=== PATIENT | male | born 1930 | race Caucasian/White ===

== ENCOUNTER 2017-05-05 08:45 | Inpatient (IN) | payer OTHER, MEDICARE ==
[~2017-05-05] VITALS: Ht 162.6 cm; Wt 71.8 kg
[2017-05-05] VITALS (12 sets, daily range): BP systolic 100–131; BP diastolic 50–77; PULSE 62–97; RESP 14–20; TEMP 98.4–99; O2SAT 95–100
[~2017-05-05 08:45] MED LIST: ASPI81 PO; COQ-100C5 OR; COUM3TAB PO; GLUC500C4 OR; HYDR-3580 OR; IRON OTC PO; NIAC500T34 PO; SIMV40TA PO; VITA100020 SL
[2017-05-05] MEDS ORDERED: VENTAER INH (08:52)
[2017-05-05] MEDS ORDERED: PRED1 PO (08:52)
[2017-05-05] MEDS ORDERED: SODIUM CHLOR 0.9% 1000 ML INJ 1,000 ML IV SCH (09:17)
[2017-05-05] MEDS ORDERED: DIATRIZOATE MEGLUM/DIATRIZOATE SOD 9 ML CUP ONE (09:23)
[2017-05-05] MEDS ORDERED: HYDROmorphone HCL PF 2 MG/ML VIAL ONE ×2 (09:25→16:04)
[2017-05-05] MEDS ORDERED: ONDANSETRON HCL 4 MG/2 ML VIAL IVP ONE (09:30)
[2017-05-05] MEDS ORDERED: HYDROmorphone HCL PF 1 MG/ML VIAL IVS ONE (09:30)
[2017-05-05] MEDS ORDERED: SODIUM CHLORIDE 0.9% FLUSH 10 ML FLUSH IV FLUSH PRN (09:30)
[2017-05-05 09:48] LABS: HEMATOCRIT 38.9 % (39.0-51.0); HEMOGLOBIN 13.3 GM/DL (13.0-17.0); MEAN CELL VOLUME 92.9 FL (80.0-100.0); MEAN CORPUSCULAR HEMOGLOBIN 31.8 PG (27.0-34.0); MEAN CORPUSCULAR HGB CONC 34.2 % (32.0-36.0); PLATELET COUNT 226 TH/MM3 (150-450); RED BLOOD COUNT 4.19 MIL/MM3 (4.50-5.90); RED CELL DISTRIBUTION WIDTH 12.9 % (11.6-17.2); WHITE BLOOD COUNT 15.9 TH/MM3 (4.0-11.0)
[2017-05-05 10:00] LABS: ALBUMIN 3.1 GM/DL (3.4-5.0); AST (GOT) 14 U/L (15-37); BICARBONATE 28.5 MEQ/L (21.0-32.0); BLOOD UREA NITROGEN 27 MG/DL (7-18); CALCIUM 9.4 MG/DL (8.5-10.1); CREATININE 1.39 MG/DL (0.60-1.30); GLOMERULAR FILTRATION RATE 48 ML/MIN (>89); GLUCOSE,RANDOM 122 MG/DL (74-106)
[2017-05-05 10:02] LABS: ALT (GPT) 30 U/L (12-78)
[2017-05-05 10:04] LABS: ALKALINE PHOSPHATASE 76 U/L (45-117); TOTAL BILIRUBIN ADULT 0.4 MG/DL (0.2-1.0); TOTAL PROTEIN 6.7 GM/DL (6.4-8.2)
--- NOTE | 2017-05-05 10:17 | PD ---
HPI Chief Complaint: Abdominal Pain Time Seen by Provider: 09:17 Travel History International Travel<30 days: No Contact w/Intl Traveler<30days: No Traveled to known affect area: No History of Present Illness HPI This is an 86-year-old male who presents today with complaints of abdominal pain with associated nausea vomiting. Patient states that it started this morning. He denies any fevers, chills. The patient denies any previous history of pain like this. He does report that he has been told he has had diverticulosis in the past. There is no reported blood in his stool or emesis. There is no decreased urination. Patient states he had a bowel movement this morning that was normal in consistency. There are no other complaints at the time of my examination. PFSH Past Medical History Arthritis: Yes Asthma: No Heart Rhythm Problems: No Cancer: No Cardiovascular Problems: Yes High Cholesterol: Yes Chest Pain: No Congestive Heart Failure: No COPD: No Cerebrovascular Accident: No Endocrine: No GERD: No Genitourinary: No Hiatal Hernia: No Hypertension: Yes Immune Disorder: No Musculoskeletal: Yes Neurologic: No Psychiatric: No Reproductive: No Respiratory: No Migraines: No Seizures: No Sleep Apnea: No Ulcer: No Tetanus Vaccination: < 5 Years Influenza Vaccination: Yes Past Surgical History Joint Replacement: Yes (LEFT TOTAL HIP) Pacemaker: No Social History Alcohol Use: No Tobacco Use: No Substance Use: No Allergies-Medications (Allergen,Severity, Reaction): Coded Allergies: oyster extract (Unverified Allergy, Severe, NAUSEA, 05/05/17) Reported Meds & Prescriptions Reported Meds & Active Scripts Active Reported Ventolin Hfa 18 GM Inh (Albuterol Sulfate) 90 Mcg/Act Aer 1 Puff INH Q4H PRN Prednisone 1 Mg Tab 1 Mg PO DAILY Review of Systems Except as stated in HPI: all other systems reviewed are Neg General / Constitutional: No: Fever, Chills HENT: No: Headaches, Lightheadedness, Neck Pain Cardiovascular: No: Chest Pain or Discomfort, Palpitations, Irregular Rhythm Respiratory: No: Cough, Shortness of Breath Gastrointestinal: Positive: Nausea, Vomiting, Abdominal Pain, No: Diarrhea Genitourinary: No: Dysuria, Decreased Urinary Output Musculoskeletal: No: Weakness, Pain Neurologic: No: Weakness, Dizziness, Headache Physical Exam Narrative GENERAL: Well-developed well-nourished male in obvious discomfort. Patient was writhing around the bed complaining of abdominal pain. SKIN: Focused skin assessment warm/dry. HEAD: Atraumatic. Normocephalic. EYES: Pupils equal and round. No scleral icterus. No injection or drainage. ENT: No nasal bleeding or discharge. Mucous membranes pink and moist. NECK: Trachea midline. Supple. CARDIOVASCULAR: Regular rate and rhythm. No murmur appreciated. RESPIRATORY: No accessory muscle use. Clear to auscultation. Breath sounds equal bilaterally. GASTROINTESTINAL: Abdomen soft, nondistended. There is tenderness to palpation in his periumbilical area. He has guarding in his mid abdominal and lower abdominal areas bilaterally. There is no rebound. MUSCULOSKELETAL: No obvious deformities. No clubbing. No cyanosis. No edema. NEUROLOGICAL: Awake and alert. No obvious cranial nerve deficits. Motor grossly within normal limits. Normal speech. Data Data Last Documented VS Vital Signs Date Time Temp Pulse Resp B/P (MAP) Pulse Ox O2 Delivery O2 Flow Rate FiO2 05/05/17 13:35 05/05/17 13:00 95 17 97 Nasal Cannula 2.00 05/05/17 08:49 98.4 Orders Orders Complete Blood Count With Diff (05/05/17 09:17) Comprehensive Metabolic Panel (05/05/17:17) Lipase (05/05/17 09:17) Lactic Acid (05/05/17:17) Urinalysis - C+S If Indicated (05/05/17 09:17) Ct Abd/Pel W Iv Contrast(Rout) (05/05/17 09:17) Iv Access Insert/Monitor (05/05/17 09:17) Ecg Monitoring (05/05/17 09:17) Oximetry (05/05/17 09:17) Ondansetron Inj (Zofran Inj) (05/05/17 09:30) Sodium Chlor 0.9% 1000 Ml Inj (Ns 1000 M (05/05/17 09:17) Sodium Chloride 0.9% Flush (Ns Flush) (05/05/17 09:30) Hydromorphone Pf Inj (Dilaudid Pf Inj) (05/05/17 09:30) Oral Contrast - Adult (05/05/17 09:21) Diatrizoate Liq ( Gastroview Liq) (05/05/17 09:23) Hydromorphone Pf Inj (Dilaudid Pf Inj) (05/05/17 09:25) Abdomen, Upright Only (05/05/17 10:17) Sodium Chlorid 0.9% 500 Ml Inj (Ns 500 M (05/05/17 11:45) Iohexol 350 Inj (Omnipaque 350 Inj) (05/05/17 12:23) Piperacil-Tazo 4.5 Gm Premix (Zosyn 4.5 (05/05/17 12:45) Electrocardiogram (05/05/17 ) Admit To Inpatient (05/05/17 ) Code Status (05/05/17 13:12) Vital Signs (Adult) ISHMAEL.Q1H (05/05/17 13:12) Activity Bed Rest (05/05/17 13:12) Elevate Head Of Bed (05/05/17 13:12) Diet Npo (05/05/17 Lunch) Sodium Chlor 0.9% 1000 Ml Inj (Ns 1000 M (05/05/17 13:12) Morphine Inj (Morphine Inj) (05/05/17 14:00) Famotidine Inj (Pepcid Inj) (05/05/17 21:00) Ondansetron Inj (Zofran Inj) (05/05/17 16:00) Albuterol-Ipratropium Neb (Duoneb Neb) (05/05/17 16:00) Albuterol-Ipratropium Neb (Duoneb Neb) (05/05/17 13:15) Complete Blood Count With Diff (05/06/17 04:00) Basic Metabolic Panel (Bmp) (05/06/17 04:00) Resp Oxygen [place] C Titrat 1-4 L (05/05/17 ) Depalletizer Operator / Telemetry ISHMAEL.Q8H (05/05/17 13:12) Scd Bilateral/Knee High ISHMAEL.BID (05/05/17 13:12) ^ Initiate Protocol (05/05/17 13:12) Instruction (05/05/17 13:12) Misc Nursing Information (05/05/17 13:15) Chlorhexidine 2% Cloth (Chlorhexidine 2% (05/06/17 04:00) Chlorhexidine 2% Cloth (Chlorhexidine 2% (05/05/17 13:15) Mrsa Pcr Surveillance (05/05/17 13:12) Inpatient Certification (05/05/17 ) Type And Screen (05/05/17 13:17) Piperacil-Tazo 4.5 Gm Premix (Zosyn 4.5 (05/05/17 14:00) Consult Lizett Nfs (05/05/17 ) Add Patient To Providers List (05/05/17 ) Admit Order (Ed Use Only) (05/05/17 13:33) Labs Laboratory Tests Test 05/05/17 09:30 05/05/17 12:15 White Blood Count 15.9 TH/MM3 Red Blood Count 4.19 MIL/MM3 Hemoglobin 13.3 GM/DL Hematocrit 38.9 % Mean Corpuscular Volume 92.9 FL Mean Corpuscular Hemoglobin 31.8 PG Mean Corpuscular Hemoglobin Concent 34.2 % Red Cell Distribution Width 12.9 % Platelet Count 226 TH/MM3 Mean Platelet Volume 8.0 FL CBC Comment AUTO DIFF Differential Total Cells Counted 100 Neutrophils % (Manual) 87 % Band Neutrophils % 5 % Lymphocytes % 4 % Monocytes % 4 % Neutrophils # (Manual) 14.6 TH/MM3 Differential Comment FINAL DIFF MANUAL Platelet Estimate NORMAL Platelet Morphology Comment NORMAL Red Cell Morphology Comment NORMAL Blood Urea Nitrogen 27 MG/DL Creatinine 1.39 MG/DL Random Glucose 122 MG/DL Total Protein 6.7 GM/DL Albumin 3.1 GM/DL Calcium Level 9.4 MG/DL Alkaline Phosphatase 76 U/L Aspartate Amino Transf (AST/SGOT) 14 U/L Alanine Aminotransferase (ALT/SGPT) 30 U/L Total Bilirubin 0.4 MG/DL Sodium Level 136 MEQ/L Potassium Level 4.2 MEQ/L Chloride Level 102 MEQ/L Carbon Dioxide Level 28.5 MEQ/L Anion Gap 6 MEQ/L Estimat Glomerular Filtration Rate 48 ML/MIN Lactic Acid Level 3.5 mmol/L Lipase 172 U/L Urine Color YELLOW Urine Turbidity CLEAR Urine pH 5.0 Urine Specific [place] 1.021 Urine Protein TRACE mg/dL Urine Glucose (UA) NEG mg/dL Urine Ketones NEG mg/dL Urine Occult Blood NEG Urine Nitrite NEG Urine Bilirubin NEG Urine Urobilinogen LESS THAN 2.0 MG/DL Urine Leukocyte Esterase NEG Urine RBC 1 /hpf Urine WBC 1 /hpf Urine Squamous Epithelial Cells <1 /hpf Urine Hyaline Casts 4 /lpf Urine Mucus FEW /lpf Microscopic Urinalysis Comment CULT NOT INDICATED MDM Medical Decision Making Medical Screen Exam Complete: Yes Emergency Medical Condition: Yes Differential Diagnosis Cholecystitis versus diverticulitis versus appendicitis versus bowel obstruction Narrative Course 86-year-old male presents with abdominal pain. Patient has severe pain with a tense abdomen. CT scan shows ruptured viscus. The patient's been started on Zosyn. Case was discussed with Dr. Rogelio Dang, who will admit the patient to his service. He requested we put placed in the intensive care unit. Case was discussed with Dr. Andreas Esposito, occupational therapist rehab manager who agreed to bring the patient under his service and have Dr. Dang as a knowledge management consultant. Diagnosis Primary Impression: Ruptured viscus Additional Impressions: Peritonitis ART (acute kidney injury) Admitting Information Admitting Physician Requests: Admit Jerome Fox MD May 05, 2017 10:17
[2017-05-05 10:26] LABS: CHLORIDE 102 MEQ/L (98-107); SODIUM (NA) 136 MEQ/L (136-145)
[2017-05-05 10:27] LABS: BANDS 5 % (0-6); LYMPHOCYTES 4 % (9-44); MONOCYTES 4 % (0-8); NEUTROPHIL # MANUAL DIFF 14.6 TH/MM3 (1.8-7.7); POLYS (SEG NEUTROPHILS) 87 % (16-70)
--- NOTE | 2017-05-05 11:37 | RADRPT ---
EXAM DATE/TIME: 05/05/2017 10:47 [facility] COMPARISON: No previous studies available for comparison. INDICATIONS : Abdominal pain and distention. MEDICAL HISTORY : Hypercholesterolemia. Hypertension SURGICAL HISTORY : Left total hip ENCOUNTER: Initial ACUITY: 2 days PAIN SCORE: 10/10 LOCATION: Bilateral upper abdomen FINDINGS: Single frontal view of the lower chest/upper abdomen demonstrates thin collection of gas underneath t he right hemidiaphragm. No dilated loops of bowel. The visualized lower lungs are clear. CONCLUSION: 1. Pneumoperitoneum on the right side. Prashanth Mcintyre MD on May 05, 2017 at 11:34 Board Certified Radiologist. This report was verified electronically.
[2017-05-05] MEDS ORDERED: SODIUM CHLORID 0.9% 500 ML INJ 500 ML IV ONE (11:45)
[2017-05-05] MEDS ORDERED: DEXAMETHASONE SOD PHOS 4 MG/ML VIAL IV ONE (12:00)
[2017-05-05] MEDS ORDERED: SUCCINYLCHOLINE CHLORIDE 100 MG/5 ML SYRINGE IV PUSH ONE (12:00)
[2017-05-05] MEDS ORDERED: PHENYLEPH/NS 1000 MCG/10 ML SYR IV ONE (12:00)
[2017-05-05] MEDS ORDERED: ROCURONIUM INJ 50 MG/5 ML SYRINGE IV PUSH ONE (12:00)
[2017-05-05] MEDS ORDERED: ONDANSETRON HCL 4 MG/2 ML VIAL IV ONE (12:00)
[2017-05-05] MEDS ORDERED: PROPOFOL 200 MG/20 ML AMP IV ONE (12:00)
[2017-05-05] MEDS ORDERED: LIDOCAINE HCL 1% PF 5 ML SYRINGE OTHER ONE (12:00)
[2017-05-05] MEDS ORDERED: IOHEXOL 350 MG/ML 10 ML VIAL (for RAD DIAG) IVCONTRAST ONE (12:23)
[2017-05-05] MEDS ORDERED: PIPERACIL-TAZO 4.5 GM PREMIX 100 ML IV ONE (12:45)
[2017-05-05 12:47] LABS: BILIRUBIN, URINE NEG (NEG); BLOOD, URINE NEG (NEG); GLUCOSE,URINE NEG (NEG); HYALINE CAST, URINE 4 /lpf (RARE); KETONE, URINE NEG (NEG); MUCUS URINE FEW /lpf (OCC); NITRITE,URINE NEG (NEG); SQUAMOUS EPITHELIAL CELL URINE <1 /hpf (0-5); URINE COLOR YELLOW (YELLW/STRAW); URINE LEUKOCYTE ESTERASE NEG (NEG)
--- NOTE | 2017-05-05 12:50 | RADRPT ---
EXAM DATE/TIME: 05/05/2017 12:15 [facility] COMPARISON: No previous studies available for comparison. INDICATIONS : Abdominal pain IV CONTRAST: 85 cc Omnipaque 350 (iohexol) IV ORAL CONTRAST: Prescribed oral contrast ingested. RADIATION DOSE: 9.7 CTDIvol (mGy) MEDICAL HISTORY : Cardiovascular disease. Hypertension. SURGICAL HISTORY : None. ENCOUNTER: Initial ACUITY: 1 day PAIN SCALE: 7/10 LOCATION: Bilateral Abdomen TECHNIQUE: Volumetric scanning of the abdomen and pelvis was performed. Using automated exposure control and ad justment of the mA and/or kV according to patient size, radiation dose was kept as low as reasonably achievable to obtain optimal diagnostic quality images. DICOM format image data is available electro nically for review and comparison. FINDINGS: A free intraperitoneal air is present. There is a 4 cm air-fluid level adjacent to the splenic flexur e of the colon probably representing a localized abscess from an area of perforation. No obstruction. Small amount of free fluid in the pelvis. Lung bases demonstrate mild scarring. No acute findings in the spleen, adrenals, kidneys and pancreas . Small cyst left lobe liver. There is no abdominal or pelvic adenopathy. Previous left hip replacement. CONCLUSION: 1. Free intraperitoneal air likely from bowel perforation. Most likely location is at the splenic fle xure where there is a 4 cm air-fluid level characteristic of an abscess. Differential diagnosis is lo calized diverticulitis or colitis. Tucker Rivera MD on May 05, 2017 at 12:42 Board Certified Radiologist. This report was verified electronically.
[2017-05-05] MEDS: SODIUM CHLOR 0.9% 1000 ML INJ 1,000 ML IV SCH ×2 (13:12→19:52)
[2017-05-05] MEDS ORDERED: CHLORHEXIDINE GLUCONATE 2 % 1 PACK (2 CLOTHS) TOP PRN (13:15)
[2017-05-05] MEDS ORDERED: MISCELLANEOUS NURSING INFORMATION XX SCH (13:15)
[2017-05-05] MEDS: PIPERACIL-TAZO 4.5 GM PREMIX 100 ML IV SCH ×2 (14:00→20:07)
[2017-05-05] MEDS ORDERED: ALBUMIN 5% INJ 250 ML IV ONE (14:09)
[2017-05-05] MEDS ORDERED: PROPOFOL 1000 MG/100 ML INJ 100 ML ONE (15:07)
[2017-05-05] MEDS ORDERED: DO NOT ADM ANY ANTICOAGULANT DRUGS PRN (15:28)
--- NOTE | 2017-05-05 15:32 | HHI.PR ---
cc: Rogelio Dang MD Immediate Post Op Note Procedure Date: May 05, 2017 Pre Op Diagnosis: Pneumoperitoneum Post Op Diagnosis: Same, secondary to perforated jejunal diverticulum Surgeon: Rogelio Dang Glass Unloading Equipment Tender(s): Becka Procedure: Exploratory laparotomy Resection jejunum with primary anastomosis Mobilization splenic flexure of colon Findings: Perforated jejunal diverticulum Complications: None Specimen(s) removed: Mid-jejunum to pathology Estimated blood loss: 150 ml Anesthesia: General Drains: RAMIN IVF (1800 ml) Patient to: PACU Patient Condition: Fair Date/Time of Procedure: SEE SURGICAL CARE RECORD Rogelio Dang MD May 05, 2017 15:32
[2017-05-05] MEDS ORDERED: diphenhydrAMINE HCL 50 MG/ML VIAL IV PUSH PRN (15:45)
[2017-05-05] MEDS ORDERED: NALOXONE HCL 0.4 MG/ML AMP IV PUSH PRN (15:45)
[2017-05-05] MEDS ORDERED: ONDANSETRON HCL 4 MG/2 ML VIAL IV PUSH PRN ×2 (15:45→16:00)
[2017-05-05] MEDS ORDERED: HYDROmorphone HCL PF 1 MG/ML VIAL IVP PRN (15:45)
[2017-05-05 15:57] LABS: HEMATOCRIT 36.2 % (39.0-51.0); HEMOGLOBIN 12.3 GM/DL (13.0-17.0); MEAN CELL VOLUME 92.2 FL (80.0-100.0); MEAN CORPUSCULAR HEMOGLOBIN 31.3 PG (27.0-34.0); MEAN CORPUSCULAR HGB CONC 33.9 % (32.0-36.0); MEAN PLATELET VOLUME 7.4 FL (7.0-11.0); PLATELET COUNT 180 TH/MM3 (150-450); RED BLOOD COUNT 3.93 MIL/MM3 (4.50-5.90); RED CELL DISTRIBUTION WIDTH 13.1 % (11.6-17.2); WHITE BLOOD COUNT 10.4 TH/MM3 (4.0-11.0)
[2017-05-05] MEDS: RESP: ALBUTEROL CONC 2.5 MG/0.5 ML NEB NEB SCH ×2 (16:00→19:14)
[2017-05-05] MEDS ORDERED: RASS Change Order XX ONE (16:00)
[2017-05-05] MEDS ORDERED: RESP: ALBUTEROL 2.5 MG/IPRATROPIUM 0.5 MG NEB (SCH) INH (16:00)
[2017-05-05] MEDS: LACTATED RINGER'S 1000 ML INJ 1,000 ML IV SCH ×2 (16:00→18:35)
[2017-05-05 16:18] LABS: BICARBONATE 24.3 MEQ/L (21.0-32.0); CALCIUM 7.6 MG/DL (8.5-10.1); CREATININE 1.22 MG/DL (0.60-1.30)
[2017-05-05 16:42] LABS: BANDS 16 % (0-6); LYMPHOCYTES 3 % (9-44); NEUTROPHIL # MANUAL DIFF 10.1 TH/MM3 (1.8-7.7); POLYS (SEG NEUTROPHILS) 81 % (16-70)
--- NOTE | 2017-05-05 17:50 | PD.CONS ---
cc: Rogelio Dang MD HPI Service General Surgery Consult Requested By Dr. Fox Reason for Consult Intraperitoneal air Primary Care Physician Jorge Lin MD History of Present Illness This is a 86 year old male with a past medical history of arthritis, hypertension and dyslipidemia. He comes to the ED complaining of abdominal pain with associated nausea and vomiting. A CT abdomen/pelvis was obtained which shows free intraperitoneal air. He does have an elevated WBC. A General Surgery consultation has been requested. Review of Systems Constitutional: DENIES: Fatigue, Weight gain Endocrine: DENIES: Polydipsia, Polyuria, Polyphagia Eyes: DENIES: Diplopia Ears, nose, mouth, throat: DENIES: Hearing loss, Vertigo Respiratory: DENIES: Apneas, Sputum production Cardiovascular: DENIES: Chest pain Gastrointestinal: COMPLAINS OF: Abdominal pain, Nausea, Vomiting Genitourinary: DENIES: Urinary frequency Musculoskeletal: DENIES: Joint pain Integumentary: DENIES: Abnormal pigmentation Hematologic/lymphatic: DENIES: Bruising Immunologic/allergic: DENIES: Eczema Neurologic: DENIES: Headache, Localized weakness Psychiatric: DENIES: Mood changes, Depression, Hallucinations Past Family Social History Past Medical History Arthritis Hypertension Dyslipidemia Past Surgical History LEFT hip replacement Allergies: Coded Allergies: oyster extract (Unverified Allergy, Severe, NAUSEA, 05/05/17) Active Ordered Medications Current Medications Medications (Trade) Dose Ordered Sig/Alia Route Start Time Stop Time Status Last Admin (NS Flush) 2 ml UNSCH PRN IV FLUSH 05/05/17 09:30 Sodium Chloride 1,000 ml @ 150 mls/hr Q6H40M IV 05/05/17 13:12 (Morphine Inj) 2 mg Q2H PRN IV PUSH 05/05/17 14:00 (Pepcid Inj) 20 mg Q12HR IV PUSH 05/05/17 21:00 (Duoneb Neb) 1 ampule Q2HR NEB PRN INH 05/05/17 13:15 Miscellaneous Information 1 Q361D XX 05/05/17 13:15 (Chlorhexidine 2% Cloth) 3 pack Taper DAILY@04 TOP 05/06/17 04:00 05/02/18 03:59 (Chlorhexidine 2% Cloth) 3 pack UNSCH PRN TOP 05/05/17 13:15 Piperacillin Sod/ Tazobactam Sod 100 ml @ 200 mls/hr Q8H IV 05/05/17 14:00 Lactated Ringer's 1,000 ml @ 125 mls/hr Q8H IV 05/05/17 16:00 (Zofran Inj) 4 mg Q6H PRN IV PUSH 05/05/17 15:45 (Narcan Inj) 0.4 mg UNSCH PRN IV PUSH 05/05/17 15:45 (Benadryl Inj) 25 mg Q6H PRN IV PUSH 05/05/17 15:45 (Protonix Inj) 40 mg Q24H IV PUSH 05/05/17 17:00 (Albuterol Concentrated Neb) 2.5 mg Q6HR NEB NEB 05/05/17 16:00 (Peridex 0.12% Liq) 15 ml BID@08,20 MT 05/05/17 20:00 Propofol 100 ml @ 2.55 mls/hr TITRATE PRN IV 05/05/17 16:00 (Dilaudid Pf Inj) 1 mg Q1H PRN IV PUSH 05/05/17 16:30 Miscellaneous Information ALL NURSING DEPARTME... 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 SKIN: Warm and dry. HEAD: Atraumatic. Normocephalic. EYES: Pupils equal and round. No scleral icterus. No injection or drainage. ENT: No nasal bleeding or discharge. Mucous membranes pink and moist. NECK: Trachea midline. CARDIOVASCULAR: Regular rate and rhythm. RESPIRATORY: No accessory muscle use. Clear to auscultation. Breath sounds equal bilaterally. GASTROINTESTINAL: Abdomen distended; tender to palpation. MUSCULOSKELETAL: Extremities without clubbing, cyanosis, or edema. No obvious deformities. NEUROLOGICAL: Awake and alert. No obvious cranial nerve deficits. Motor grossly within normal limits. Five out of 5 muscle strength in the arms and legs. Normal speech. PSYCHIATRIC: Appropriate mood and affect; insight and judgment normal. Laboratory Laboratory Tests Test 05/05/17 09:30 05/05/17 12:15 05/05/17 15:40 05/05/17 15:50 White Blood Count 15.9 10.4 Red Blood Count 4.19 3.93 Hemoglobin 13.3 12.3 Hematocrit 38.9 36.2 Mean Corpuscular Volume 92.9 92.2 Mean Corpuscular Hemoglobin 31.8 31.3 Mean Corpuscular Hemoglobin Concent 34.2 33.9 Red Cell Distribution Width 12.9 13.1 Platelet Count 226 180 Mean Platelet Volume 8.0 7.4 CBC Comment AUTO DIFF AUTO DIFF Differential Total Cells Counted 100 100 Neutrophils % (Manual) 87 81 Band Neutrophils % 5 16 Lymphocytes % 4 3 Monocytes % 4 Neutrophils # (Manual) 14.6 10.1 Differential Comment FINAL DIFF MANUAL FINAL DIFF MANUAL Platelet Estimate NORMAL NORMAL Platelet Morphology Comment NORMAL NORMAL Red Cell Morphology Comment NORMAL Blood Urea Nitrogen 27 27 Creatinine 1.39 1.22 Random Glucose 122 129 Total Protein 6.7 Albumin 3.1 Calcium Level 9.4 7.6 Alkaline Phosphatase 76 Aspartate Amino Transf (AST/SGOT) 14 Alanine Aminotransferase (ALT/SGPT) 30 Total Bilirubin 0.4 Sodium Level 136 137 Potassium Level 4.2 4.3 Chloride Level 102 104 Carbon Dioxide Level 28.5 24.3 Anion Gap 6 9 Estimat Glomerular Filtration Rate 48 56 Lactic Acid Level 3.5 Lipase 172 Urine Color YELLOW Urine Turbidity CLEAR Urine pH 5.0 Urine Specific [place] 1.021 Urine Protein TRACE Urine Glucose (UA) NEG Urine Ketones NEG Urine Occult Blood NEG Urine Nitrite NEG Urine Bilirubin NEG Urine Urobilinogen LESS THAN 2.0 Urine Leukocyte Esterase NEG Urine RBC 1 Urine WBC 1 Urine Squamous Epithelial Cells <1 Urine Hyaline Casts 4 Urine Mucus FEW Microscopic Urinalysis Comment CULT NOT INDICATED Blood Gas Puncture Site ART LINE Blood Gas Patient Temperature 98.6 Blood Gas HCO3 22 Blood Gas Base Excess -2.2 Blood Gas Oxygen Saturation 97 Arterial Blood pH 7.36 Arterial Blood Partial Pressure CO2 40 Arterial Blood Partial Pressure O2 148 Arterial Blood Oxygen Content 16.9 Arterial Blood Carboxyhemoglobin 0.7 Arterial Blood Methemoglobin 1.4 Blood Gas Hemoglobin 12.3 Oxygen Delivery Device VENTILATOR Blood Gas Ventilator Setting PRVC/AC 550/14 Blood Gas Inspired Oxygen 45 Date/Time Source Procedure Growth Status 05/05/17 14:14 Fluid Other Gram Stain - Final Resulted 05/05/17 14:14 Fluid Other Body Fluid Culture Pending Resulted Result Diagram: 05/05/17 1540 05/05/17 1540 Imaging Last 48 hours Impressions Abdomen X-Ray 05/05/17 1017 Signed Impressions: Service Date/Time: Friday, May 05, 2017 10:47 - CONCLUSION: 1. Pneumoperitoneum on the right side. Prashanth Mcintyre MD Abdomen/Pelvis CT 05/05/17 0917 Signed Impressions: Service Date/Time: Friday, May 05, 2017 12:15 - CONCLUSION: 1. Free intraperitoneal air likely from bowel perforation. Most likely location is at the splenic flexure where there is a 4 cm air-fluid level characteristic of an abscess. Differential diagnosis is localized diverticulitis or colitis. Tucker Rivera MD Assessment and Plan Assessment and Plan 86 year old male with abdominal pain; intraperitoneal free air on CT scan -Plan for OR emergently for exploratory laparotomy -NPO -IVF -Zosyn -Thank you for this consult; We will continue to follow Attending Note - Dr. Dang Grossly distended abdomen; diffusely tender Appears to have perforation in region of splenic flexure, which is unusual location Patient would benefit from emergent exploration before he decompensates Discussed risks with him, including need for temporary colostomy. He vocalizes understanding. The exam, history, and the medical decision-making described in the above note were completed with the assistance of the mid-level provider. I reviewed and agree with the findings presented. I attest that I had a [id number] encounter with the patient on the same day, and personally performed and documented my assessment and findings in the medical record. Discussed Condition With Dr. Alton Decker. Alma Peñaloza/First Bernardo HIDALGO May 05, 2017 17:50 Rogelio Dang MD May 05, 2017 20:16
--- NOTE | 2017-05-05 18:22 | HHI.HP ---
[facility] Service Critical Care Medicine Primary Care Physician Jorge Lin MD Admission Diagnosis perforated viscous Diagnosis: Chief Complaint: Abdominal Pain. Travel History International Travel<30 Days: No Contact w/Intl Traveler <30 Da: No Traveled to Known Affected Are: No History of Present Illness 86 y/o man s/p repair of proximal small bowel perforated diverticulum. On mechanical ventilation. Review of Systems ROS Unable to obtain. Past Family Social History Allergies: Coded Allergies: oyster extract (Unverified Allergy, Severe, NAUSEA, 05/05/17) Past Medical History Past Medical History Arthritis: Yes Asthma: No Heart Rhythm Problems: No Cancer: No Cardiovascular Problems: Yes High Cholesterol: Yes Chest Pain: No Congestive Heart Failure: No COPD: No Cerebrovascular Accident: No Endocrine: No GERD: No Genitourinary: No Hiatal Hernia: No Hypertension: Yes Immune Disorder: No Musculoskeletal: Yes Neurologic: No Psychiatric: No Reproductive: No Respiratory: No Migraines: No Seizures: No Sleep Apnea: No Ulcer: No Tetanus Vaccination: < 5 Years Influenza Vaccination: Yes Past Surgical History Joint Replacement: Yes (LEFT TOTAL HIP) Pacemaker: No Social History Alcohol Use: No Tobacco Use: No Substance Use: No Allergies-Medications Allergies-Medications (Allergen,Severity, Reaction): Coded Allergies: oyster extract (Unverified Allergy, Severe, NAUSEA, 05/05/17) Reported Meds & Prescriptions Reported Meds & Active Scripts Active Reported Ventolin Hfa 18 GM Inh (Albuterol Sulfate) 90 Mcg/Act Aer 1 Puff INH Q4H PRN Prednisone 1 Mg Tab 1 Mg PO DAILY Physical Exam Vital Signs Vital Signs Date Time Temp Pulse Resp B/P (MAP) Pulse Ox O2 Delivery O2 Flow Rate FiO2 05/05/17 17:00 98 16 96/48 (64) 100 Mechanical Ventilator 45 05/05/17 17:00 45 05/05/17 16:45 96 16 105/56 (72) 100 Mechanical Ventilator 45 05/05/17 16:30 95 16 93/50 (64) 99 Mechanical Ventilator 45 05/05/17 16:15 100 16 96/53 (67) 99 Mechanical Ventilator 45 05/05/17 16:00 125 16 151/72 (98) 99 Mechanical Ventilator 45 05/05/17 15:45 115 16 155/70 (98) 99 Mechanical Ventilator 45 05/05/17 15:39 99 45 05/05/17 15:30 45 05/05/17 15:30 98.6 97 16 117/59 (78) 100 Mechanical Ventilator 45 05/05/17 13:35 05/05/17 13:00 95 17 115/67 (83) 97 Nasal Cannula 2.00 05/05/17 12:00 96 17 106/59 (75) 98 Nasal Cannula 2.00 05/05/17 11:00 94 19 103/62 (76) 97 Nasal Cannula 2.00 05/05/17 10:15 97 18 100/60 (73) 96 Room Air 05/05/17 09:39 95 Room Air 05/05/17 08:49 98.4 89 20 131/77 (95) 95 Physical Exam Head: Normal. Neck: Supple, orally intubated. Lungs: Clear, light wheezes and moderate bronchospasm. Heart: NL S1S2, RRR. No JVD. Abdomen: Midline incision, clean dry dressing. Quiet. RAMIN drains with serous fluid. Extremities: Warm, well perfused. Neuro: Breathes over vent. KIM. Withdraws 4 limbs. Laboratory Laboratory Tests Test 05/05/17 09:30 05/05/17 12:15 05/05/17 15:40 05/05/17 15:50 White Blood Count 15.9 10.4 Red Blood Count 4.19 3.93 Hemoglobin 13.3 12.3 Hematocrit 38.9 36.2 Mean Corpuscular Volume 92.9 92.2 Mean Corpuscular Hemoglobin 31.8 31.3 Mean Corpuscular Hemoglobin Concent 34.2 33.9 Red Cell Distribution Width 12.9 13.1 Platelet Count 226 180 Mean Platelet Volume 8.0 7.4 CBC Comment AUTO DIFF AUTO DIFF Differential Total Cells Counted 100 100 Neutrophils % (Manual) 87 81 Band Neutrophils % 5 16 Lymphocytes % 4 3 Monocytes % 4 Neutrophils # (Manual) 14.6 10.1 Differential Comment FINAL DIFF MANUAL FINAL DIFF MANUAL Platelet Estimate NORMAL NORMAL Platelet Morphology Comment NORMAL NORMAL Red Cell Morphology Comment NORMAL Blood Urea Nitrogen 27 27 Creatinine 1.39 1.22 Random Glucose 122 129 Total Protein 6.7 Albumin 3.1 Calcium Level 9.4 7.6 Alkaline Phosphatase 76 Aspartate Amino Transf (AST/SGOT) 14 Alanine Aminotransferase (ALT/SGPT) 30 Total Bilirubin 0.4 Sodium Level 136 137 Potassium Level 4.2 4.3 Chloride Level 102 104 Carbon Dioxide Level 28.5 24.3 Anion Gap 6 9 Estimat Glomerular Filtration Rate 48 56 Lactic Acid Level 3.5 Lipase 172 Urine Color YELLOW Urine Turbidity CLEAR Urine pH 5.0 Urine Specific [place] 1.021 Urine Protein TRACE Urine Glucose (UA) NEG Urine Ketones NEG Urine Occult Blood NEG Urine Nitrite NEG Urine Bilirubin NEG Urine Urobilinogen LESS THAN 2.0 Urine Leukocyte Esterase NEG Urine RBC 1 Urine WBC 1 Urine Squamous Epithelial Cells <1 Urine Hyaline Casts 4 Urine Mucus FEW Microscopic Urinalysis Comment CULT NOT INDICATED Blood Gas Puncture Site ART LINE Blood Gas Patient Temperature 98.6 Blood Gas HCO3 22 Blood Gas Base Excess -2.2 Blood Gas Oxygen Saturation 97 Arterial Blood pH 7.36 Arterial Blood Partial Pressure CO2 40 Arterial Blood Partial Pressure O2 148 Arterial Blood Oxygen Content 16.9 Arterial Blood Carboxyhemoglobin 0.7 Arterial Blood Methemoglobin 1.4 Blood Gas Hemoglobin 12.3 Oxygen Delivery Device VENTILATOR Blood Gas Ventilator Setting PRVC/AC 550/14 Blood Gas Inspired Oxygen 45 Date/Time Source Procedure Growth Status 05/05/17 14:14 Fluid Other Gram Stain - Final Resulted 05/05/17 14:14 Fluid Other Body Fluid Culture Pending Resulted Result Diagram: 05/05/17 1540 05/05/17 1540 Caprini VTE Risk Assessment Caprini VTE Risk Assessment: Mod/High Risk (score >= 2) Caprini Risk Assessment Model Point Value = 1 Point Value = 2 Point Value = 3 Point Value = 5 Age 41-60 Minor surgery BMI > 25 kg/m2 Swollen legs Varicose veins or History of unexplained or recurrent spontaneous Oral contraceptives or hormone replacement Sepsis (< 1 month) Serious lung disease, including pneumonia (< 1 month) Abnormal pulmonary function Acute myocardial infarction Congestive heart failure (< 1 month) History of inflammatory bowel disease Medical patient at bed rest Age 61-74 Arthroscopic surgery Major open surgery (> 45 min) Laparoscopic surgery (> 45 min) Malignancy Confined to bed (> 72 hours) Immobilizing plaster cast Central venous access Age >= 75 History of VTE Family history of VTE Factor V Leiden Prothrombin [id number] Lupus anticoagulant Anticardiolipin antibodies Elevated serum homocysteine Heparin-induced thrombocytopenia Other congenital or acquired thrombophilia Stroke (< 1 month) Elective arthroplasty Hip, pelvis, or leg fracture Acute spinal cord injury (< 1 month) Prophylaxis Regimen Total Risk Factor Score Risk Level Prophylaxis Regimen 0-1 Low Early ambulation 2 Moderate Order ONE of the following: *Sequential Compression Device (SCD) *Heparin 5000 units SQ BID 3-4 Higher Order ONE of the following medications: *Heparin 5000 units SQ TID *Enoxaparin/Lovenox 40 mg SQ daily (WT < 150 kg, CrCl > 30 mL/min) *Enoxaparin/Lovenox 30 mg SQ daily (WT < 150 kg, CrCl > 10-29 mL/min) *Enoxaparin/Lovenox 30 mg SQ BID (WT < 150 kg, CrCl > 30 mL/min) AND/OR *Sequential Compression Device (SCD) 5 or more Highest Order ONE of the following medications: *Heparin 5000 units SQ TID (Preferred with Epidurals) *Enoxaparin/Lovenox 40 mg SQ daily (WT < 150 kg, CrCl > 30 mL/min) *Enoxaparin/Lovenox 30 mg SQ daily (WT < 150 kg, CrCl > 10-29 mL/min) *Enoxaparin/Lovenox 30 mg SQ BID (WT < 150 kg, CrCl > 30 mL/min) AND *Sequential Compression Device (SCD) Assessment and Plan Problem List: (1) Perforated diverticulum of small intestine ICD Code: K57.00 - Diverticulitis of small intestine with perforation and abscess without bleeding Status: Acute (2) Peritonitis ICD Code: K65.9 - Peritonitis, unspecified (3) Respiratory failure ICD Code: J96.90 - Respiratory failure, unspecified, unspecified whether with hypoxia or hypercapnia Status: Acute (4) COPD with exacerbation ICD Code: J44.1 - Chronic obstructive pulmonary disease with (acute) exacerbation Status: Acute (5) ART (acute kidney injury) ICD Code: N17.9 - Acute kidney failure, unspecified Assessment and Plan Plan: 1. Bronchodilators. 2. Zosyn. 3. PRVC vent mode. 4. Propofol sedation. 5. Heparin dvt px. 6. Pepcid. Overall impression: Critically ill requiring laparotomy for peritonitis, complicated by exacerbated COPD, requiring mechanical ventilation. Critical care 40 mins Jerome Islas MD May 05, 2017 18:22
[2017-05-05] MEDS: PROPOFOL 1000 MG/100 ML INJ 100 ML IV PRN ×2 (18:34→20:07)
[2017-05-05] MEDS: RESP: ALBUTEROL 2.5 MG/IPRATROPIUM 0.5 MG NEB (PRN) INH (19:14)
[2017-05-05] MEDS: HYDROmorphone HCL PF 2 MG/ML VIAL IV PUSH PRN (20:07)
[2017-05-05] MEDS: CHLORHEXIDINE 0.12% (ORAL KIT) 15 ML CUP MT SCH (20:08)
[2017-05-05] MEDS: PANTOPRAZOLE SODIUM 40 MG VIAL IV PUSH SCH (20:12)
[2017-05-05] MEDS ORDERED: FAMOTIDINE 20 MG/2 ML VIAL IV PUSH SCH (21:00)
[2017-05-05] MEDS ORDERED: SODIUM CHLOR 0.9% 1000 ML INJ 1,000 ML IV ONE ×3 (21:30→23:30)
--- NOTE | 2017-05-05 23:23 | EKG ---
Date Performed: 05/05/2017 Time Performed: 13:21:36 PTAGE: 86 years EKG: SINUS TACHYCARDIA POSSIBLE LEFT ATRIAL ENLARGEMENT PATTERN CONSISTENT WITH PULMONARY DISEAS E LEFT ANTERIOR FASCICULAR BLOCK ABNORMAL ECG NO PREVIOUS TRACING DOCTOR: Chris Tobar Interpretating Date/Time 05/05/2017 23:21:32
[2017-05-06] VITALS (18 sets, daily range): BP systolic 114–139; BP diastolic 51–66; PULSE 62–96; RESP 14–24; TEMP 97.8–98.5; O2SAT 96–100
[2017-05-06] MEDS: SODIUM CHLOR 0.9% 1000 ML INJ 1,000 ML IV SCH ×4 (00:18→22:32)
[2017-05-06] MEDS: HYDROmorphone HCL PF 2 MG/ML VIAL IV PUSH PRN ×4 (01:48→20:06)
[2017-05-06] MEDS: PROPOFOL 1000 MG/100 ML INJ 100 ML IV PRN (01:50)
[2017-05-06] MEDS: RESP: ALBUTEROL CONC 2.5 MG/0.5 ML NEB NEB SCH ×4 (03:45→22:00)
[2017-05-06] MEDS: RESP: ALBUTEROL 2.5 MG/IPRATROPIUM 0.5 MG NEB (PRN) INH ×4 (03:46→20:34)
[2017-05-06] MEDS: CHLORHEXIDINE GLUCONATE 2 % 1 PACK (2 CLOTHS) TOP SCH (04:00)
[2017-05-06] MEDS: PIPERACIL-TAZO 4.5 GM PREMIX 100 ML IV SCH ×3 (04:17→20:20)
[2017-05-06] MEDS: LACTATED RINGER'S 1000 ML INJ 1,000 ML IV SCH ×3 (05:13→23:00)
[2017-05-06 05:59] LABS: AUTOMATED NEUTROPHIL # 9.3 TH/MM3 (1.8-7.7); BASOPHIL % 0.1 % (0.0-2.0); HEMATOCRIT 31.5 % (39.0-51.0); HEMOGLOBIN 10.9 GM/DL (13.0-17.0); LYMPH % 4.9 % (9.0-44.0); LYMPHOCYTE # 0.5 TH/MM3 (1.0-4.8); MEAN CELL VOLUME 92.8 FL (80.0-100.0); MEAN CORPUSCULAR HEMOGLOBIN 32.2 PG (27.0-34.0); MEAN CORPUSCULAR HGB CONC 34.7 % (32.0-36.0); MEAN PLATELET VOLUME 7.9 FL (7.0-11.0); MONO % 3.5 % (0.0-8.0); MONOCYTE # 0.4 TH/MM3 (0-0.9); NEUT % 91.5 % (16.0-70.0); PLATELET COUNT 160 TH/MM3 (150-450); RED CELL DISTRIBUTION WIDTH 13.3 % (11.6-17.2); WHITE BLOOD COUNT 10.1 TH/MM3 (4.0-11.0)
[2017-05-06 06:12] LABS: BICARBONATE 23.3 MEQ/L (21.0-32.0); CALCIUM 7.3 MG/DL (8.5-10.1); CREATININE 1.33 MG/DL (0.60-1.30)
--- NOTE | 2017-05-06 06:19 | RADRPT ---
EXAM DATE/TIME: 05/06/2017 04:51 [place] COMPARISON: CT ABDOMEN & PELVIS W CONTRAST, May 05, 2017, 12:15. INDICATIONS : Follow up acute trauma injury. MEDICAL HISTORY : Cardiovascular disease. Hypertension. SURGICAL HISTORY : None. ENCOUNTER: Initial ACUITY: 1 day PAIN SCORE: Non-responsive. LOCATION: Bilateral chest FINDINGS: Mild patchy infiltrates seen left medial lung base. Right lung reasonably clear. No large effusion de monstrated. No pneumothorax. There is mild cardiomegaly. Endotracheal tube tip is approximately 4 cm above the alla. There is a nasogastric tube with tip in the stomach. CONCLUSION: Mild patchy infiltrate left medial lung base. Right lung clear. Lines and tubes as above. Mikhail Garcia MD on May 06, 2017 at 6:16 Board Certified Radiologist. This report was verified electronically.
[2017-05-06 06:25] LABS: CALCIUM-PROTEIN CORRECTED 8.6 MG/DL (8.5-10.1); TOTAL PROTEIN 4.8 GM/DL (6.4-8.2)
[2017-05-06] MEDS: CHLORHEXIDINE 0.12% (ORAL KIT) 15 ML CUP MT SCH ×2 (08:00→20:00)
[2017-05-06] MEDS: FAMOTIDINE 20 MG/2 ML VIAL IV PUSH SCH ×2 (08:39→20:06)
--- NOTE | 2017-05-06 11:56 | HHI.PR ---
Subjective Subjective Notes Patient is ventilated and sedated on diprivan. Objective Vitals/I&O Vital Signs Date Time Temp Pulse Resp B/P (MAP) Pulse Ox O2 Delivery O2 Flow Rate FiO2 05/06/17 10:37 100 45 05/06/17 06:00 65 05/06/17 04:00 98.2 14 126/61 (82) 05/05/17 17:00 Mechanical Ventilator 05/05/17 13:00 2.00 Labs Laboratory Tests Test 05/05/17 12:15 05/05/17 15:40 05/05/17 15:50 05/06/17 04:09 Urine Color YELLOW Urine Turbidity CLEAR Urine pH 5.0 Urine Specific [place] 1.021 Urine Protein TRACE Urine Glucose (UA) NEG Urine Ketones NEG Urine Occult Blood NEG Urine Nitrite NEG Urine Bilirubin NEG Urine Urobilinogen LESS THAN 2.0 Urine Leukocyte Esterase NEG Urine RBC 1 Urine WBC 1 Urine Squamous Epithelial Cells <1 Urine Hyaline Casts 4 Urine Mucus FEW Microscopic Urinalysis Comment CULT NOT INDICATED White Blood Count 10.4 Red Blood Count 3.93 Hemoglobin 12.3 Hematocrit 36.2 Mean Corpuscular Volume 92.2 Mean Corpuscular Hemoglobin 31.3 Mean Corpuscular Hemoglobin Concent 33.9 Red Cell Distribution Width 13.1 Platelet Count 180 Mean Platelet Volume 7.4 CBC Comment AUTO DIFF Differential Total Cells Counted 100 Neutrophils % (Manual) 81 Band Neutrophils % 16 Lymphocytes % 3 Neutrophils # (Manual) 10.1 Differential Comment FINAL DIFF MANUAL Platelet Estimate NORMAL Platelet Morphology Comment NORMAL Blood Urea Nitrogen 27 Creatinine 1.22 Random Glucose 129 Calcium Level 7.6 Sodium Level 137 Potassium Level 4.3 Chloride Level 104 Carbon Dioxide Level 24.3 Anion Gap 9 Estimat Glomerular Filtration Rate 56 Blood Gas Puncture Site ART LINE ART LINE Blood Gas Patient Temperature 98.6 98.6 Blood Gas HCO3 22 21 Blood Gas Base Excess -2.2 -2.9 Blood Gas Oxygen Saturation 97 98 Arterial Blood pH 7.36 7.39 Arterial Blood Partial Pressure CO2 40 36 Arterial Blood Partial Pressure O2 148 165 Arterial Blood Oxygen Content 16.9 14.3 Arterial Blood Carboxyhemoglobin 0.7 1.0 Arterial Blood Methemoglobin 1.4 0.8 Blood Gas Hemoglobin 12.3 10.2 Oxygen Delivery Device VENTILATOR VENTILATOR Blood Gas Ventilator Setting [facility]/AC 550/14 PRV/AC Blood Gas Inspired Oxygen 45 45 Test 05/06/17 05:10 White Blood Count 10.1 Red Blood Count 3.40 Hemoglobin 10.9 Hematocrit 31.5 Mean Corpuscular Volume 92.8 Mean Corpuscular Hemoglobin 32.2 Mean Corpuscular Hemoglobin Concent 34.7 Red Cell Distribution Width 13.3 Platelet Count 160 Mean Platelet Volume 7.9 Neutrophils (%) (Auto) 91.5 Lymphocytes (%) (Auto) 4.9 Monocytes (%) (Auto) 3.5 Eosinophils (%) (Auto) 0.0 Basophils (%) (Auto) 0.1 Neutrophils # (Auto) 9.3 Lymphocytes # (Auto) 0.5 Monocytes # (Auto) 0.4 Eosinophils # (Auto) 0.0 Basophils # (Auto) 0.0 CBC Comment DIFF FINAL Differential Comment Blood Urea Nitrogen 26 Creatinine 1.33 Random Glucose 148 Total Protein 4.8 Calcium Level 7.3 Sodium Level 139 Potassium Level 4.3 Chloride Level 108 Carbon Dioxide Level 23.3 Anion Gap 8 Estimat Glomerular Filtration Rate 51 Protein Corrected Calcium 8.6 Date/Time Source Procedure Growth Status 05/05/17 14:14 Fluid Other Gram Stain - Final Resulted 05/05/17 14:14 Fluid Other Body Fluid Culture Pending Resulted Radiology Last 48 hours Impressions Abdomen X-Ray 05/05/17 1017 Signed Impressions: Service Date/Time: Friday, May 05, 2017 10:47 - CONCLUSION: 1. Pneumoperitoneum on the right side. Prashanth Mcintyre MD Abdomen/Pelvis CT 05/05/17 0917 Signed Impressions: Service Date/Time: Friday, May 05, 2017 12:15 - CONCLUSION: 1. Free intraperitoneal air likely from bowel perforation. Most likely location is at the splenic flexure where there is a 4 cm air-fluid level characteristic of an abscess. Differential diagnosis is localized diverticulitis or colitis. Tucker Rivera MD Cardiovascular: Regular Lungs: Clear Abdomen: Non-distended, Other (Abdominal dressing is dry and intact. There is a drain exiting in the left lower abdomen draining serosanguineous pink tinged fluid.) Extremities: Perfused, SCD's on A/P Assessment and Plan Postop day 1 status post exploratory laparotomy with segmental resection of the jejunum for perforated jejunal diverticulitis. The patient is stable. He is not on any pressor agents. His urine output is good. Plan continue support. Anish Dunne MD May 06, 2017 11:56
--- NOTE | 2017-05-06 12:42 | HHI.CCPN ---
Subjective Remarks/Hospital Course 86 y/o man s/p repair of proximal small bowel perforated diverticulum. On mechanical ventilation. 05/06: Gas exchange acceptable. Well perfused. Considerable pain and agitation when sedation weaned. May need [employer] for extubation. NG to LIS and abdomen well decompressed. Objective Vital Signs Date Time Temp Pulse Resp B/P (MAP) Pulse Ox O2 Delivery O2 Flow Rate FiO2 05/06/17 10:37 100 45 05/06/17 06:00 65 05/06/17 04:00 98.2 14 126/61 (82) 05/05/17 17:00 Mechanical Ventilator 05/05/17 13:00 2.00 Intake and Output 05/06/17 05/06/17 05/07/17 08:00 16:00 00:00 Intake Total 3200 ml Output Total 810 ml Balance 2390 ml Result Diagram: 05/06/17 0510 05/06/17 0510 Other Results Laboratory Tests Test 05/05/17 15:50 05/06/17 04:09 Blood Gas Puncture Site ART LINE ART LINE Blood Gas Patient Temperature 98.6 98.6 Blood Gas HCO3 22 mmol/L (22-26) 21 mmol/L (22-26) Blood Gas Base Excess -2.2 mmol/L (-2-2) -2.9 mmol/L (-2-2) Blood Gas Oxygen Saturation 97 % (90-100) 98 % (90-100) Arterial Blood pH 7.36 (7.380-7.420) 7.39 (7.380-7.420) Arterial Blood Partial Pressure CO2 40 mmHg (38-42) 36 mmHg (38-42) Arterial Blood Partial Pressure O2 148 mmHg (61-120) 165 mmHg (61-120) Arterial Blood Oxygen Content 16.9 Vol % (12.0-20.0) 14.3 Vol % (12.0-20.0) Arterial Blood Carboxyhemoglobin 0.7 % (0-4) 1.0 % (0-4) Arterial Blood Methemoglobin 1.4 % (0-2) 0.8 % (0-2) Blood Gas Hemoglobin 12.3 G/DL (12.0-16.0) 10.2 G/DL (12.0-16.0) Oxygen Delivery Device VENTILATOR VENTILATOR Blood Gas Ventilator Setting PRVC/AC 550/14 PRVC/AC Blood Gas Inspired Oxygen 45 % 45 % Objective Remarks Head: Normal. Neck: Supple, orally intubated. Lungs: Clear, light wheezes only, good bilateral air movement. Heart: NL S1S2, RRR. No JVD. Abdomen: Midline incision, clean dry dressing. Quiet. RAMIN drains with serous fluid. Extremities: Warm, well perfused. Neuro: Breathes over vent. KIM. Withdraws 4 limbs. A/P Problem List: (1) Perforated diverticulum of small intestine ICD Code: K57.00 - Diverticulitis of small intestine with perforation and abscess without bleeding Status: Acute (2) Peritonitis ICD Code: K65.9 - Peritonitis, unspecified (3) Respiratory failure ICD Code: J96.90 - Respiratory failure, unspecified, unspecified whether with hypoxia or hypercapnia Status: Acute (4) COPD with exacerbation ICD Code: J44.1 - Chronic obstructive pulmonary disease with (acute) exacerbation Status: Acute (5) ART (acute kidney injury) ICD Code: N17.9 - Acute kidney failure, unspecified Assessment and Plan Plan: 1. Bronchodilators. 2. Zosyn. 3. PRVC vent mode. 4. Propofol sedation. 5. Heparin dvt px. 6. Pepcid. 7. Taper sedation. Overall impression: S/P laparotomy for peritonitis, complicated by exacerbated COPD, bronchospasm resolved, will wean ventilator. Jerome Islas MD May 06, 2017 12:42
[2017-05-06] MEDS: PANTOPRAZOLE SODIUM 40 MG VIAL IV PUSH SCH (16:01)
[2017-05-07] VITALS (13 sets, daily range): BP systolic 105–125; BP diastolic 58–67; PULSE 86–111; RESP 14–34; TEMP 98–102.5; O2SAT 91–97
[2017-05-07] MEDS: HYDROmorphone HCL PF 2 MG/ML VIAL IV PUSH PRN ×3 (02:55→14:57)
[2017-05-07] MEDS: RESP: ALBUTEROL 2.5 MG/IPRATROPIUM 0.5 MG NEB (PRN) INH ×3 (03:10→14:30)
[2017-05-07] MEDS: CHLORHEXIDINE GLUCONATE 2 % 1 PACK (2 CLOTHS) TOP SCH (04:00)
[2017-05-07] MEDS: RESP: ALBUTEROL CONC 2.5 MG/0.5 ML NEB NEB SCH ×4 (04:00→20:52)
[2017-05-07] MEDS: SODIUM CHLOR 0.9% 1000 ML INJ 1,000 ML IV SCH ×2 (04:07→17:00)
[2017-05-07] MEDS: PIPERACIL-TAZO 4.5 GM PREMIX 100 ML IV SCH ×3 (04:14→21:07)
[2017-05-07] MEDS: LACTATED RINGER'S 1000 ML INJ 1,000 ML IV SCH (06:39)
[2017-05-07] MEDS: CHLORHEXIDINE 0.12% (ORAL KIT) 15 ML CUP MT SCH ×2 (08:00→20:00)
--- NOTE | 2017-05-07 09:07 | HHI.PR ---
Subjective Subjective Notes feels "ok but weak". pain controlled. no bowel activity yet Objective Vitals/I&O Vital Signs Date Time Temp Pulse Resp B/P (MAP) Pulse Ox O2 Delivery O2 Flow Rate FiO2 05/07/17 06:00 86 05/07/17 04:00 98.9 14 108/58 (75) 95 05/06/17 19:20 Nasal Cannula 3.00 05/06/17 12:45 45 Labs Date/Time Source Procedure Growth Status 05/05/17 14:14 Fluid Other Gram Stain - Final Resulted 05/05/17 14:14 Body Fluid Culture - Preliminary Gram Negative [place] Resulted Radiology Last 48 hours Impressions Abdomen X-Ray 05/05/17 1017 Signed Impressions: Service Date/Time: Friday, May 05, 2017 10:47 - CONCLUSION: 1. Pneumoperitoneum on the right side. Prashanth Mcintyre MD Abdomen/Pelvis CT 05/05/17 0917 Signed Impressions: Service Date/Time: Friday, May 05, 2017 12:15 - CONCLUSION: 1. Free intraperitoneal air likely from bowel perforation. Most likely location is at the splenic flexure where there is a 4 cm air-fluid level characteristic of an abscess. Differential diagnosis is localized diverticulitis or colitis. Tucker Rivera MD Abdomen: Non-distended, Post-op tenderness, BS normal Narrative Exam DRAIN with serosanginous fluid, dressing intact and clean A/P Assessment and Plan POD2 exp lap, resection of jejunum OOB, ok for ice chips. continue NG decompression DW DR HACKETT and RN. Farzad Villavicencio MD May 07, 2017 09:07
[2017-05-07] MEDS: FAMOTIDINE 20 MG/2 ML VIAL IV PUSH SCH ×2 (09:45→21:07)
--- NOTE | 2017-05-07 14:13 | HHI.CCPN ---
Subjective Remarks/Hospital Course 86 y/o man s/p repair of proximal small bowel perforated diverticulum. On mechanical ventilation. 05/06: Gas exchange acceptable. Well perfused. Considerable pain and agitation when sedation weaned. May need [employer] for extubation. NG to LIS and abdomen well decompressed. 05/07: Extubated yesterday and breathing comfortably today. Continue NG to LIS as patient has proximal small bowel anastomosis. Do not removed NG until OK with Surgery Service. Objective Vital Signs Date Time Temp Pulse Resp B/P (MAP) Pulse Ox O2 Delivery O2 Flow Rate FiO2 05/07/17 09:39 95 Nasal Cannula 2.00 05/07/17 06:00 86 05/07/17 04:00 98.9 14 108/58 (75) 05/06/17 12:45 45 Intake and Output 05/07/17 05/07/17 05/08/17 08:00 16:00 00:00 Output Total 1045 ml Balance -1045 ml Result Diagram: 05/06/17 0510 05/06/17 0510 Other Results Microbiology Date/Time Source Procedure Growth Status 05/05/17 14:14 Fluid Other Gram Stain - Final Complete 05/05/17 14:14 Body Fluid Culture - Final Klebsiella Pneumoniae Multi-Drug Resistant Complete Objective Remarks Head: Normal. Neck: Supple, orally intubated. Lungs: Clear, light wheezes only, good bilateral air movement. Heart: NL S1S2, RRR. No JVD. Abdomen: Midline incision, clean dry dressing. Quiet. RAMIN drains with serous fluid. Extremities: Warm, well perfused. No edema. Neuro: Conversant, alert. KIM. Moves 4 limbs to command. A/P Problem List: (1) Perforated diverticulum of small intestine ICD Code: K57.00 - Diverticulitis of small intestine with perforation and abscess without bleeding Status: Acute (2) Peritonitis ICD Code: K65.9 - Peritonitis, unspecified (3) Respiratory failure ICD Code: J96.90 - Respiratory failure, unspecified, unspecified whether with hypoxia or hypercapnia Status: Acute (4) COPD with exacerbation ICD Code: J44.1 - Chronic obstructive pulmonary disease with (acute) exacerbation Status: Acute (5) ART (acute kidney injury) ICD Code: N17.9 - Acute kidney failure, unspecified Assessment and Plan Plan: 1. Bronchodilators. 2. Zosyn. 3. Incentive spirometer. 4. d/c Propofol sedation. 5. Heparin dvt px. 6. Pepcid. 7. Mobilize. 8. Transfer. 9. Continue NG suction. Overall impression: S/P laparotomy for peritonitis, complicated by exacerbated COPD. Bronchospasm resolved quickly and extubation accomplished 05/06. Jerome Islas MD May 07, 2017 14:13
[2017-05-07] MEDS ORDERED: ACETAMINOPHEN 1000 MG/100 ML 100 ML IV PRN (15:15)
[2017-05-08] VITALS (18 sets, daily range): BP systolic 109–153; BP diastolic 43–81; PULSE 77–175; RESP 12–24; TEMP 97.9–98.4; O2SAT 92–100
[2017-05-08] MEDS ORDERED: MIDAZOLAM HCL 5 MG/ML VIAL (1 ML) ONE (00:50)
[2017-05-08] MEDS ORDERED: AMIODARONE INJ 150 MG in DEXTROSE 5% IN WATER 100ML INJ 100 ML IV ONE ×2 (00:52)
[2017-05-08] MEDS ORDERED: AMIODARONE INJ 450 MG in DEXTROSE 5% IN WATE(EXCEL) INJ 241 ML IV PRN ×2 (01:02)
[2017-05-08] MEDS ORDERED: AMIODARONE HCL 150 MG/3 ML VIAL ONE ×2 (01:05→10:58)
[2017-05-08] MEDS ORDERED: SODIUM BICARBONATE 8.4% INJ 50 MEQ/50 ML SYR ONE (01:20)
--- NOTE | 2017-05-08 02:45 | PD.PROCEDR ---
Procedure Note Procedure Cardioversion Electric cardioversion Emergent electrocardioversion due to hemodynamic instability due to SVT. The appropriate time-out procedure was performed as per [facility] protocol including proper identification of the patient, physician, procedure, documentation, and there were no safety issues identified by myself nor the staff. The patient didn't participate actively in this, patient is sedated and intubated. He received a total of 2 mg of Versed then and 100 micrograms of fentanyl bolus with continues fentanyl infusion with utilizing titrated conscious sedation with good effect. He was placed in the supine position and hands free patches had previously been placed in the AP position and he received one synchronized cardioversion attempt with unsuccessful resumption of normal sinus rhythm however with some improvement of blood pressure. This was confirmed on 12 lead EKG. Edil Gorman MD May 08, 2017 2:45 am
[2017-05-08] MEDS: RESP: ALBUTEROL CONC 2.5 MG/0.5 ML NEB NEB SCH ×4 (03:16→20:53)
[2017-05-08] MEDS: CHLORHEXIDINE GLUCONATE 2 % 1 PACK (2 CLOTHS) TOP SCH (04:00)
[2017-05-08] MEDS: PIPERACIL-TAZO 4.5 GM PREMIX 100 ML IV SCH ×3 (05:23→21:07)
[2017-05-08 06:07] LABS: BASOPHIL % 0.1 % (0.0-2.0); EOSINOPHIL % 0.4 % (0.0-4.0); HEMATOCRIT 31.1 % (39.0-51.0); HEMOGLOBIN 10.7 GM/DL (13.0-17.0); LYMPH % 3.1 % (9.0-44.0); LYMPHOCYTE # 0.3 TH/MM3 (1.0-4.8); MEAN CELL VOLUME 92.3 FL (80.0-100.0); MEAN CORPUSCULAR HEMOGLOBIN 31.8 PG (27.0-34.0); MEAN CORPUSCULAR HGB CONC 34.5 % (32.0-36.0); MEAN PLATELET VOLUME 7.4 FL (7.0-11.0); MONO % 4.2 % (0.0-8.0); MONOCYTE # 0.5 TH/MM3 (0-0.9); NEUT % 92.2 % (16.0-70.0); PLATELET COUNT 180 TH/MM3 (150-450); RED BLOOD COUNT 3.37 MIL/MM3 (4.50-5.90); RED CELL DISTRIBUTION WIDTH 13.1 % (11.6-17.2); WHITE BLOOD COUNT 10.9 TH/MM3 (4.0-11.0)
[2017-05-08 06:43] LABS: BICARBONATE 27.9 MEQ/L (21.0-32.0); CALCIUM 7.8 MG/DL (8.5-10.1); CREATININE 1.25 MG/DL (0.60-1.30)
[2017-05-08] MEDS: CHLORHEXIDINE 0.12% (ORAL KIT) 15 ML CUP MT SCH ×2 (08:00→20:45)
--- NOTE | 2017-05-08 08:23 | HHI.CCPN ---
Subjective Remarks/Hospital Course 86 y/o man s/p repair of proximal small bowel perforated diverticulum. On mechanical ventilation. 05/06: Gas exchange acceptable. Well perfused. Considerable pain and agitation when sedation weaned. May need TIGHT COOPER for extubation. NG to LIS and abdomen well decompressed. 05/07: Extubated yesterday and breathing comfortably today. Continue NG to LIS as patient has proximal small bowel anastomosis. Do not removed NG until OK with Surgery Service. 05/08: Patient developed new a-fib and hypotension last night. Cardioversion attempted without success but he converted after amiodarone bolus and gtt. K 3.7. Now in NSR and well perfused. His care is complicated by paroxysms of bronchospasm/COPD/bronchitis. I have asked Cardiology to advise as to adjustment of meds. Surgery will decide when to remove NG tube; for now leave in place to suction. Objective Vital Signs Date Time Temp Pulse Resp B/P (MAP) Pulse Ox O2 Delivery O2 Flow Rate FiO2 05/08/17 07:51 97 Nasal Cannula 4.00 05/08/17 06:00 90 05/08/17 04:00 98.4 12 113/59 (77) 05/06/17 12:45 45 Intake and Output 05/08/17 05/08/17 05/09/17 08:00 16:00 00:00 Output Total 590 ml Balance -590 ml Result Diagram: 05/08/17 0534 05/08/17 0534 Other Results Microbiology Date/Time Source Procedure Growth Status 05/05/17 14:14 Fluid Other Gram Stain - Final Complete 05/05/17 14:14 Body Fluid Culture - Final Klebsiella Pneumoniae Multi-Drug Resistant Complete Objective Remarks Head: Normal. Neck: Supple, orally intubated. Lungs: Clear, light wheezes only, good bilateral air movement. Heart: NL S1S2, RRR. No JVD. Abdomen: Midline incision, clean dry dressing. Quiet. Extremities: Warm, well perfused. No edema. Neuro: Conversant, alert. KIM. Moves 4 limbs to command. A/P Problem List: (1) Perforated diverticulum of small intestine ICD Code: K57.00 - Diverticulitis of small intestine with perforation and abscess without bleeding Status: Acute (2) Peritonitis ICD Code: K65.9 - Peritonitis, unspecified (3) Respiratory failure ICD Code: J96.90 - Respiratory failure, unspecified, unspecified whether with hypoxia or hypercapnia Status: Acute (4) COPD with exacerbation ICD Code: J44.1 - Chronic obstructive pulmonary disease with (acute) exacerbation Status: Acute (5) Paroxysmal atrial fibrillation with rapid ventricular response ICD Code: I48.0 - Paroxysmal atrial fibrillation (6) ART (acute kidney injury) ICD Code: N17.9 - Acute kidney failure, unspecified Assessment and Plan Plan: 1. Bronchodilators. 2. Zosyn. 3. Incentive spirometer. 5. Heparin dvt px. 6. Pepcid. 7. Mobilize. 8. Transfer. 9. Continue NG suction. 10. Amiodarone gtt, adjust meds per Cardiology Service. 11. K and Mag bolus. Overall impression: S/P laparotomy for peritonitis, complicated by exacerbated COPD. Bronchospasm resolved quickly and extubation accomplished 05/06. Jerome Islas MD May 08, 2017 08:23
[2017-05-08] MEDS: MAGNESIUM SULFATE 1 GM PREMIX 100 ML IV SCH ×2 (10:03→11:00)
[2017-05-08] MEDS: FAMOTIDINE 20 MG/2 ML VIAL IV PUSH SCH ×2 (10:04→20:44)
[2017-05-08] MEDS: POTASSIUM CHLOR 20 MEQ PREMIX 100 ML IV SCH ×2 (10:04→11:00)
--- NOTE | 2017-05-08 10:54 | HHI.PR ---
cc: Rogelio Dang MD Subjective Subjective Notes Resting in bed "Can I go to the regular floor?" Objective Vitals/I&O Vital Signs Date Time Temp Pulse Resp B/P (MAP) Pulse Ox O2 Delivery O2 Flow Rate FiO2 05/08/17 07:51 97 Nasal Cannula 4.00 05/08/17 06:00 90 05/08/17 04:00 98.4 12 113/59 (77) 05/06/17 12:45 45 Labs Laboratory Tests Test 05/07/17 16:50 05/08/17 05:34 Nasal Screen MRSA (PCR) MRSA NOT DETECTED White Blood Count 10.9 Red Blood Count 3.37 Hemoglobin 10.7 Hematocrit 31.1 Mean Corpuscular Volume 92.3 Mean Corpuscular Hemoglobin 31.8 Mean Corpuscular Hemoglobin Concent 34.5 Red Cell Distribution Width 13.1 Platelet Count 180 Mean Platelet Volume 7.4 Neutrophils (%) (Auto) 92.2 Lymphocytes (%) (Auto) 3.1 Monocytes (%) (Auto) 4.2 Eosinophils (%) (Auto) 0.4 Basophils (%) (Auto) 0.1 Neutrophils # (Auto) 10.0 Lymphocytes # (Auto) 0.3 Monocytes # (Auto) 0.5 Eosinophils # (Auto) 0.0 Basophils # (Auto) 0.0 CBC Comment DIFF FINAL Differential Comment Blood Urea Nitrogen 19 Creatinine 1.25 Random Glucose 95 Calcium Level 7.8 Sodium Level 142 Potassium Level 3.7 Chloride Level 108 Carbon Dioxide Level 27.9 Anion Gap 6 Estimat Glomerular Filtration Rate 55 Date/Time Source Procedure Growth Status 05/05/17 14:14 Fluid Other Gram Stain - Final Complete 05/05/17 14:14 Body Fluid Culture - Final Klebsiella Pneumoniae Multi-Drug Resistant Complete Radiology Last 48 hours Impressions Abdomen X-Ray 05/05/17 1017 Signed Impressions: Service Date/Time: Friday, May 05, 2017 10:47 - CONCLUSION: 1. Pneumoperitoneum on the right side. Prashanth Mcintyre MD Abdomen/Pelvis CT 05/05/17 0917 Signed Impressions: Service Date/Time: Friday, May 05, 2017 12:15 - CONCLUSION: 1. Free intraperitoneal air likely from bowel perforation. Most likely location is at the splenic flexure where there is a 4 cm air-fluid level characteristic of an abscess. Differential diagnosis is localized diverticulitis or colitis. Tucker Rivera MD Cardiovascular: Regular Lungs: Clear Abdomen: Other (midline incision ---- dressing removed and replaced; abdelrahman--- c/d/i; RAMIN with SS drainage; abdomen mildly distended but non tender to palpation ) Extremities: Other (mild generalized edema ) A/P Assessment and Plan 86 year old male POD3 exp lap, resection of jejunum -S/p bedside cardioversion for afib with RVR -Cardiology consult pending -NPO; NGT to LIWS -OOB as tolerated -Would recommend keeping patient in ISC due to heart rate -Discussed with Dr. Islas Attending Note - Dr. Dang Dressing dry NG with approx. 150ml overnight No flatus or BM yet Keep NG for now OK to give cardiazem per NG and clamp. Await return of bowel function Discussed with daughter (present at bedside), who understands he will need rehab placement upon discharge and cannot go directly home, as he is sole caregiver to , who has Alzheimer's/dementia. The exam, history, and the medical decision-making described in the above note were completed with the assistance of the mid-level provider. I reviewed and agree with the findings presented. I attest that I had a [id number] encounter with the patient on the same day, and personally performed and documented my assessment and findings in the medical record. Alma Miller/Customer Marketing Intern ROCKY May 08, 2017 10:54 Rogelio Dang MD May 09, 2017 11:43
--- NOTE | 2017-05-08 10:59 | MP ---
cc: JAYCEE RENEE M.D. DATE OF SURGERY 05/05/2017 PROCEDURE 1. Exploratory laparotomy with mobilization of the splenic flexure of the colon. 2. Small bowel resection with primary anastomosis. PREOPERATIVE DIAGNOSIS Pneumoperitoneum. POSTOPERATIVE DIAGNOSIS Pneumoperitoneum secondary to perforated jejunal diverticulum. ANESTHESIA General endotracheal. SURGEON [place]. ESTIMATED BLOOD LOSS 150 mL. FLUIDS 1800 mL crystalloid. COMPLICATIONS None. DRAINS Riley-Aburto x1. SPECIMEN Mid jejunum to pathology. PROCEDURE IN DETAIL The patient was taken to the operating room and placed on the operating table in the supine position. After an adequate level of general endotracheal anesthesia was achieved the abdomen was prepped and draped in usual fashion. A timeout was taken, confirming the correct patient, site and procedure to be performed. A midline incision was made from the xiphoid to the umbilicus. Dissection was carried down through the fascia and the peritoneal cavity entered uneventfully. The abdomen was explored with the small bowel first exteriorized. Purulent material was noted in the left upper quadrant and this was cultured and sent for Gram stain, culture and sensitivity. The abdomen was irrigated and careful inspection of the small bowel from the ligament of Treitz to the ileocecal valve revealed a single perforation in the mid jejunum at a point near a jejunal diverticulum on the mesenteric side of the bowel. This was marked with a suture and care was then taken to explore the colon as well. There was a question as to whether there was an abscess with a perforation at the splenic flexure of the colon. This was completely taken down by starting at the white line of Toldt and completely mobilizing the splenic flexure. There was omentum that was grossly inflamed with a small pocket of purulent material. It appeared that the small bowel loop was located in this location and the purulence and inflammatory process was secondary to spillage from the small bowel to this adjacent area. Careful mobilization of the entire splenic flexure of the colon revealed no perforation and no actual inflammatory process in the colon itself. With this accomplished, a total of 4 liters of warm saline was used to irrigate the abdomen. Prior to the last two liters of irrigation, the small bowel was toweled off and the jejunum that was perforated was resected. This was accomplished with MICHAEL staplers. The bowel was placed [id number] and re-anastomosed with an area chosen below the diverticula and a clear area between diverticula in the more proximal jejunum. The staple line was examined and found to be hemostatic. The toe of the staple line was reinforced with a silk suture. The jejunojejunal anastomosis was then closed with a TX60 type stapler. The staple line was seen to be intact. The mesenteric defect was closed with 3-0 silk suture. The remaining 2 liters of irrigation was used in the abdomen. A Riley-Aburto drain was brought out via separate stab incision in the left lower quadrant and tracked up along the left gutter. The abdomen was closed with a looped running #1 PDS suture. The skin was closed with abdelrahman. The wounds were dressed with sterile dressings. The patient remained intubated and was taken back to the recovery room in stable condition. Sponge, needle and instrument counts were reported to be correct. The patient was on Tani-Synephrine very briefly at the very beginning of the case and did not require any pressors for the remainder of the operative intervention. He tolerated the procedure well. MD GANESH Lewis/ROOSEVELT /3:37 PM /10:43 AM MTDAarti
[2017-05-08] MEDS ORDERED: METOPROLOL TARTRATE 5 MG/5 ML VIAL IV PUSH ONE (11:00)
[2017-05-08] MEDS: DILTIAZEM HCL 30 MG TAB PO SCH ×2 (13:26→18:47)
[2017-05-08] MEDS ORDERED: AMIODARONE 150 MG/D5W 97 ML BOLUS 60 MINUTES IV ONE ×2 (13:30)
[2017-05-08] MEDS: HYDROmorphone HCL PF 2 MG/ML VIAL IV PUSH PRN ×2 (13:53→22:00)
[2017-05-08] MEDS ORDERED: AMIODARONE INJ 450 MG in D5W (EXCEL BAG) INJ 241 ML IV PRN (14:00)
--- NOTE | 2017-05-08 14:34 | EKG ---
Date Performed: 05/08/2017 Time Performed: 00:44:06 PTAGE: 86 years EKG: Atrial fibrillation with uncontrolled ventricular response, new since prior tracing Leftwar d axis Extensive ST-T changes may be due to myocardial ischemia Clinical correlation is recommended A bnormal ECG PREVIOUS TRACING : 05/05/17 DOCTOR: Luis A Engel Interpretating Date/Time 05/08/2017 14:34:03
--- NOTE | 2017-05-08 15:43 | MB ---
cc: Gregorio Uriostegiu DO DATE OF CONSULT: 05/08/2017 REASON FOR CONSULTATION: Atrial fibrillation with rapid ventricular response. HISTORY OF PRESENT ILLNESS: Viral Vegas is a pleasant 86-year-old male who previously saw my partner, Dr. Concepcion in the office and presented to [facility] emergency room on 05/05/2017. He apparently came in due to abdominal pain with some nausea and vomiting. CT showed free air intraperitoneal and so he was taken by surgery for a exploratory laparotomy, resection of jejunum with primary anastomosis on 05/05/2017. He has been in the critical care unit and apparently, last night, he went into atrial fibrillation with rapid ventricular response and became hypotensive. They attempted cardioversion but were unsuccessful. He was started on amiodarone bolus and since converted. Apparently, this morning, he had another episode and was started on amiodarone once again and converted back to sinus rhythm. In seeing him, he is asymptomatic from this without chest pain, shortness of breath or palpitations. He states that he believes he had a history of an irregular rhythm a number of years ago, but does not remember. PAST MEDICAL HISTORY: 1. Questionable history of atrial fibrillation. 2. Arthritis. 3. Hypertension. 4. Dyslipidemia. PAST SURGICAL HISTORY: 1. Left hip replacement. 2. Exploratory laparotomy and resection of jejunum with primary anastomosis (05/05/2017). ALLERGIES: OYSTER EXTRACTS. MEDICATIONS: 1. Albuterol every 4 hours as needed for shortness of breath. 2. Prednisone 1 mg daily. FAMILY HISTORY: Denies premature coronary artery disease or sudden cardiac within the family. SOCIAL HISTORY: Denies tobacco, alcohol or drug abuse. REVIEW OF SYSTEMS: Fourteen systems were reviewed including osteopathic. Pertinent positives and negatives above, otherwise negative. PHYSICAL EXAMINATION: VITAL SIGNS: Temp 98.0, heart rate 90, blood pressure 113/59, respirations 12, pulse ox 97% on 4 L. GENERAL: The patient appears well, no acute distress. Alert, awake and oriented x 3. HEENT: Extraocular muscles intact. Mucous membranes moist. NECK: Supple. No JVD at 45 degrees. No carotid bruits heard bilaterally. Carotid upstroke is brisk in nature. HEART: Regular rate and rhythm. Positive first and secondary heart sounds with no noted murmurs, gallops or rubs. LUNGS: Clear to auscultation bilaterally. No wheezes, rales or rhonchi. ABDOMEN: With bandage over incision, which is clean and intact. No pain on palpation of the abdomen. EXTREMITIES: Shows trace edema bilaterally with no cyanosis noted. NEUROLOGIC: No focal deficits. SKIN: Warm, dry and intact. OSTEOPATHIC: No tender points. LABORATORY DATA: Hemoglobin 10.7, hematocrit 31.1, platelets 180. Potassium 3.7, BUN 19, creatinine 1.25. Electrocardiogram (05/08/2017 at 0044), AFib with uncontrolled ventricular response, left axis deviation, ST-T wave changes possibly due to atrial fibrillation versus ischemia. IMPRESSION: 1. Atrial fibrillation with rapid ventricular response, status post unsuccessful cardioversion, converted pharmacologically. 2. Perforated diverticulum status, post exploratory laparotomy and small-bowel resection with primary anastomosis (05/05/2017). 3. Chronic obstructive pulmonary disease. 4. Resolution of acute kidney injury. RECOMMENDATIONS: 1. Mr. Vegas appears to have atrial fibrillation with rapid ventricular response, which was attempted to be cardioverted, but unsuccessful. He has since converted while on amiodarone. 2. He will be loaded with amiodarone, but we will attempt to control him better with possible calcium channel blockers. Beta blockers will be avoided as apparently, he has had some bronchospasm. 3. We will check a 2D echo to look at his overall left ventricular function, cardiac structure and possible valvulopathies. 4. If necessary, we will place him on amiodarone orally, although I would like to try to avoid this as his blood pressures are in a good range and not hypotensive at this time. 5. I discussed with him consideration of anticoagulation as he has a CHADS-VASc score of 3. At this time, he would like to hold off, which definitely okay with his recent surgery, but this could be reevaluated before discharge or possibly in the outpatient setting. Thank you for allowing me to see Viral Vegas. If there are any questions, please do not hesitate to call. Gregorio Uriostegui, DO MONIQUE/DAVEY , 12:45 PM , 01:58 PM
[2017-05-08] MEDS: SODIUM CHLOR 0.9% 1000 ML INJ 1,000 ML IV SCH (17:00)
--- NOTE | 2017-05-08 17:54 | ECHRPT ---
Indication: a fib/flutter CONCLUSIONS The left ventricular systolic function is normal with an estimated ejection fraction in the range of 60-65%. Doppler parameters are consistent with impaired left ventricular relaxtion (grade 1 diastolic dysfun ction). Trace mitral valve regurgitation. There is trace tricuspid valve regurgitation. BP: / HR: Rhythm: MEASUREMENTS (Male / Female) Normal Values Technical Quality:Technically difficult study 2D ECHO LV Diastolic Diameter PLAX 3.8 cm 4.2 - 5.9 / 3.9 - 5.3 cm LV Systolic Diameter PLAX 2.8 cm IVS Diastolic Thickness 1.2 cm 0.6 - 1.0 / 0.6 - 0.9 cm LVPW Diastolic Thickness 0.9 cm 0.6 - 1.0 / 0.6 - 0.9 cm LV Relative Wall Thickness 0.6 RV Internal Dim ED PLAX 3.2 cm M-MODE Aortic Root Diameter MM 4.4 cm LA Systolic Diameter MM 2.5 cm LA Ao Ratio MM 0.6 AV Cusp Separation MM 2.3 cm DOPPLER Mitral E Point Velocity 71.1 cm/s Mitral A Point Velocity 86.4 cm/s Mitral E to A Ratio 0.8 LV E' Lateral Velocity 7.3 cm/s Mitral E to LV E' Lateral Ratio 9.7 LV E' Septal Velocity 7.2 cm/s Mitral E to LV E' Septal Ratio 9.9 TR Peak Velocity 312.0 cm/s TR Peak Gradient 38.9 mmHg Right Atrial Pressure 10.0 mmHg Pulmonary Artery Systolic Pressu 48.9 mmHg Right Ventricular Systolic Press 48.9 mmHg FINDINGS LEFT VENTRICLE Normal left ventricular size. The left ventricular systolic function is normal with an estimated ejection fraction in the range of 60-65%. Doppler parameters are consistent with impaired left ventricular relaxtion (grade 1 diastolic dysfun ction). Nonobstructive prominent basal hypertrophy is present consistent with sigmoid septum. RIGHT VENTRICLE Grossly normal LEFT ATRIUM The left atrial size is normal. RIGHT ATRIUM The right atrial size is normal. ATRIAL SEPTUM Normal atrial septal thickness AORTA The aortic root and proximal ascending aorta are normal in size on limited imaging. MITRAL VALVE Grossly normal mitral valve. Trace mitral valve regurgitation. No mitral valve stenosis. AORTIC VALVE The aortic valve is not well visualized. No aortic valve stenosis. No aortic valve regurgitation. TRICUSPID VALVE Grossly normal tricuspid valve. There is trace tricuspid valve regurgitation. The estimated pulmonary arterial pressure is 48.9 mmHg. PULMONARY VALVE No pulmonary valve regurgitation or stenosis. VESSELS The inferior vena cava is normal in size. PERICARDIUM No pericardial effusion. Gregorio Uriostegui DO (Electronically Signed) Final Date:08 May 2017 17:53
[2017-05-08] MEDS ORDERED: AMIODARONE INJ 450 MG in SODIUM CHLOR 0.9% (EXCEL) INJ 250 ML IV PRN (20:30)
[2017-05-08] MEDS ORDERED: AMIODARONE INJ 450 MG in SODIUM CHLOR 0.9% (EXCEL) INJ 241 ML IV PRN (20:30)
[2017-05-09] VITALS (14 sets, daily range): BP systolic 136–157; BP diastolic 65–78; PULSE 74–92; RESP 15–23; TEMP 98.1–99.1; O2SAT 94–99
[2017-05-09] MEDS: DILTIAZEM HCL 30 MG TAB PO SCH ×4 (00:33→17:21)
[2017-05-09] MEDS: CHLORHEXIDINE GLUCONATE 2 % 1 PACK (2 CLOTHS) TOP SCH (04:00)
[2017-05-09] MEDS: RESP: ALBUTEROL CONC 2.5 MG/0.5 ML NEB NEB SCH ×4 (04:00→20:22)
[2017-05-09] MEDS: CHLORHEXIDINE 0.12% (ORAL KIT) 15 ML CUP MT SCH ×2 (08:00→20:00)
[2017-05-09] MEDS: FAMOTIDINE 20 MG/2 ML VIAL IV PUSH SCH ×2 (09:38→20:47)
[2017-05-09] MEDS: PIPERACIL-TAZO 4.5 GM PREMIX 100 ML IV SCH ×3 (09:39→21:54)
[2017-05-09] MEDS: HYDROmorphone HCL PF 2 MG/ML VIAL IV PUSH PRN ×3 (09:39→17:22)
--- NOTE | 2017-05-09 12:15 | PD.CARD.PN ---
Subjective Subjective Remarks No events overnight Up to the chair Telemetry showing NSR Objective Medications Current Medications Medications (Trade) Dose Ordered Sig/Alia Route Start Time Stop Time Status Last Admin (NS Flush) 2 ml UNSCH PRN IV FLUSH 05/05/17 09:30 Sodium Chloride 1,000 ml @ 50 mls/hr Q20H IV 05/05/17 13:12 05/08/17 17:00 (Morphine Inj) 2 mg Q2H PRN IV PUSH 05/05/17 14:00 (Duoneb Neb) 1 ampule Q2HR NEB PRN INH 05/05/17 13:15 05/07/17 14:30 Miscellaneous Information 1 Q361D XX 05/05/17 13:15 (Chlorhexidine 2% Cloth) 3 pack Taper DAILY@04 TOP 05/06/17 04:00 05/02/18 03:59 05/08/17 04:00 (Chlorhexidine 2% Cloth) 3 pack UNSCH PRN TOP 05/05/17 13:15 Piperacillin Sod/ Tazobactam Sod 100 ml @ 200 mls/hr Q8H IV 05/05/17 14:00 05/09/17 09:39 (Zofran Inj) 4 mg Q6H PRN IV PUSH 05/05/17 15:45 (Narcan Inj) 0.4 mg UNSCH PRN IV PUSH 05/05/17 15:45 (Benadryl Inj) 25 mg Q6H PRN IV PUSH 05/05/17 15:45 (Albuterol Concentrated Neb) 2.5 mg Q6HR NEB NEB 05/05/17 16:00 05/09/17 08:21 (Peridex 0.12% Liq) 15 ml BID@08,20 MT 05/05/17 20:00 05/09/17 08:00 (Dilaudid Pf Inj) 1 mg Q1H PRN IV PUSH 05/05/17 16:30 05/09/17 09:39 (Pepcid Inj) 10 mg Q12HR IV PUSH 05/06/17 09:00 05/09/17 09:38 Acetaminophen 100 ml @ 400 mls/hr Q6H PRN IV 05/07/17 15:15 05/07/17 15:57 (Cardizem) 30 mg Q6HR PO 05/08/17 13:00 05/09/17 09:39 Amiodarone HCl 450 mg/Sodium Chloride 250 ml @ 33.33 mls/ hr TITRATE PRN IV 05/08/17 20:30 Vital Signs / I&O Vital Signs Date Time Temp Pulse Resp B/P (MAP) Pulse Ox O2 Delivery O2 Flow Rate FiO2 05/09/17 11:10 18 05/09/17 08:24 96 Nasal Cannula 2.00 05/09/17 06:00 79 05/09/17 04:00 98.5 82 17 138/65 (89) 95 05/09/17 04:00 82 05/09/17 02:00 77 05/09/17 00:00 78 05/09/17 00:00 98.3 78 15 136/65 (88) 96 05/08/17 22:00 84 05/08/17 20:41 97 Nasal Cannula 4.50 05/08/17 20:00 98.4 94 17 153/67 (95) 94 05/08/17 20:00 77 05/08/17 18:48 87 149/70 05/08/17 18:00 89 05/08/17 16:00 97.9 91 24 138/43 (74) 97 05/08/17 16:00 93 05/08/17 14:00 88 05/08/17 13:36 86 127/63 I/O 05/08/17 05/08/17 05/08/17 05/09/17 05/09/17 05/09/17 07:00 15:00 23:00 07:00 15:00 23:00 Intake Total 100 ml 153 ml Output Total 590 ml 760 ml 670 ml Balance -590 ml 100 ml -607 ml -670 ml Intake IV Total 100 ml 153 ml Output Urine Total 550 ml 600 ml 500 ml Stool Total 0 ml 0 ml Gastric Drainage Total 100 ml 50 ml Drainage Total 40 ml 60 ml 120 ml # Bowel Movements 0 Physical Exam GENERAL: NAD, AAOx3 SKIN: Warm and dry. HEAD: Atraumatic. Normocephalic. EYES: Pupils equal and round. No scleral icterus. No injection or drainage. ENT: No nasal bleeding or discharge. Mucous membranes pink and moist. NECK: Trachea midline. No JVD. CARDIOVASCULAR: Regular rate and rhythm. RESPIRATORY: No accessory muscle use. Clear to auscultation. Breath sounds equal bilaterally. GASTROINTESTINAL: Abdomen soft, non-tender, nondistended. Hepatic and splenic margins not palpable. Dressing clean/dry MUSCULOSKELETAL: Extremities without clubbing, cyanosis, or edema. No obvious deformities. NEUROLOGICAL: Awake and alert. No obvious cranial nerve deficits. Motor grossly within normal limits. Five out of 5 muscle strength in the arms and legs. Normal speech. PSYCHIATRIC: Appropriate mood and affect; insight and judgment normal. Assessment and Plan Problem List: (1) Paroxysmal atrial fibrillation with rapid ventricular response ICD Codes: I48.0 - Paroxysmal atrial fibrillation (2) Perforated diverticulum of small intestine ICD Codes: K57.00 - Diverticulitis of small intestine with perforation and abscess without bleeding Status: Acute (3) COPD with exacerbation ICD Codes: J44.1 - Chronic obstructive pulmonary disease with (acute) exacerbation Status: Acute (4) Peritonitis ICD Codes: K65.9 - Peritonitis, unspecified Assessment and Plan 1) Afib with RVR Converted to NSR with Amiodarone Blood pressure now better, previously hypotensive Placed on Cardizem PO Will attempt to stop Amiodarone drip Will avoid Beta Blockers for now, concern for bronchospasm 2) EF 60-65%, stage 1 diastolic dysfunction 3) CHADSVASc=3 Patient considering anti-coagulation Not ready for it due to recent surgery Will further discuss with him, may need to be in after discharge, depending on hospital course Gregorio Uriostegui DO May 09, 2017 12:15
--- NOTE | 2017-05-09 12:53 | HHI.PR ---
Subjective Subjective Notes Up to chair Pain controlled 'When do you think I will be able to go home?" Objective Vitals/I&O Vital Signs Date Time Temp Pulse Resp B/P (MAP) Pulse Ox O2 Delivery O2 Flow Rate FiO2 05/09/17 11:10 18 05/09/17 08:24 96 Nasal Cannula 2.00 05/09/17 06:00 79 05/09/17 04:00 98.5 138/65 (89) 05/06/17 12:45 45 Labs Date/Time Source Procedure Growth Status 05/05/17 14:14 Fluid Other Gram Stain - Final Complete 05/05/17 14:14 Body Fluid Culture - Final Klebsiella Pneumoniae Multi-Drug Resistant Complete Radiology Last 48 hours Impressions Abdomen X-Ray 05/05/17 1017 Signed Impressions: Service Date/Time: Friday, May 05, 2017 10:47 - CONCLUSION: 1. Pneumoperitoneum on the right side. Prashanth Mcintyre MD Abdomen/Pelvis CT 05/05/17 0917 Signed Impressions: Service Date/Time: Friday, May 05, 2017 12:15 - CONCLUSION: 1. Free intraperitoneal air likely from bowel perforation. Most likely location is at the splenic flexure where there is a 4 cm air-fluid level characteristic of an abscess. Differential diagnosis is localized diverticulitis or colitis. Tucker Rivera MD Cardiovascular: Regular Lungs: Clear Abdomen: Other (midline incision with steffen--- mild clear drainage; RAMIN in place with SS drainage ) Extremities: Other (mild BLE edema; non pitting ) A/P Assessment and Plan 86 year old male POD4 exp lap, resection of jejunum -Cardiology following---on PO Cardizem and Amiodarone drip -NPO; Clamp NGT; check residuals -OOB as tolerated ---PT -Continue Zosyn Attending Note - Dr. Dang Rate controlled; in sinus rhythm and a-fib intermittently Labs noted. Wound with minimal drainage. Steffen intact. Clamp NG and check residuals; will remove tube when bowel activity returns. The exam, history, and the medical decision-making described in the above note were completed with the assistance of the mid-level provider. I reviewed and agree with the findings presented. I attest that I had a [id number] encounter with the patient on the same day, and personally performed and documented my assessment and findings in the medical record. Alma Miller/First Bernardo HIDALGO May 09, 2017 12:53 Roeglio Dang MD May 10, 2017 16:27
--- NOTE | 2017-05-09 15:28 | HHI.PR ---
Subjective Remarks off amiodarone drip on normal sinus rythm Denies cp/sob. Pain controlled. Objective Vitals Vital Signs Date Time Temp Pulse Resp B/P (MAP) Pulse Ox O2 Delivery O2 Flow Rate FiO2 05/09/17 13:38 26 05/09/17 08:24 96 Nasal Cannula 2.00 05/09/17 06:00 79 05/09/17 04:00 98.5 82 17 138/65 (89) 95 05/09/17 04:00 82 05/09/17 02:00 77 05/09/17 00:00 78 05/09/17 00:00 98.3 78 15 136/65 (88) 96 05/08/17 22:00 84 05/08/17 20:41 97 Nasal Cannula 4.50 05/08/17 20:00 98.4 94 17 153/67 (95) 94 05/08/17 20:00 77 05/08/17 18:48 87 149/70 05/08/17 18:00 89 05/08/17 16:00 97.9 91 24 138/43 (74) 97 05/08/17 16:00 93 I/O 05/08/17 05/08/17 05/08/17 05/09/17 05/09/17 05/09/17 07:00 15:00 23:00 07:00 15:00 23:00 Intake Total 100 ml 153 ml Output Total 590 ml 760 ml 670 ml Balance -590 ml 100 ml -607 ml -670 ml Intake IV Total 100 ml 153 ml Output Urine Total 550 ml 600 ml 500 ml Stool Total 0 ml 0 ml Gastric Drainage Total 100 ml 50 ml Drainage Total 40 ml 60 ml 120 ml # Bowel Movements 0 Result Diagram: 05/08/17 0534 05/08/17 0534 Imaging Last Impressions Chest X-Ray 05/06/17 1532 Signed Impressions: Service Date/Time: Saturday, May 06, 2017 04:51 - CONCLUSION: Mild patchy infiltrate left medial lung base. Right lung clear. Lines and tubes as above. Mikhail Garcia MD Abdomen X-Ray 05/05/17 1017 Signed Impressions: Service Date/Time: Friday, May 05, 2017 10:47 - CONCLUSION: 1. Pneumoperitoneum on the right side. Prashanth Mcintyre MD Abdomen/Pelvis CT 05/05/17 0917 Signed Impressions: Service Date/Time: Friday, May 05, 2017 12:15 - CONCLUSION: 1. Free intraperitoneal air likely from bowel perforation. Most likely location is at the splenic flexure where there is a 4 cm air-fluid level characteristic of an abscess. Differential diagnosis is localized diverticulitis or colitis. Tucker Rivera MD Objective Remarks Head: Normal. Neck: Supple. Airway widely patent. Lungs: Clear, light wheezes persist but good bilateral air movement. Heart: NL S1S2, RRR. No JVD. Abdomen: Midline incision, clean dry dressing. Quiet. Extremities: Warm, well perfused. No edema. Neuro: Conversant, alert. KIM. Moves 4 limbs to command. Medications and IVs Current Medications Medications (Trade) Dose Ordered Sig/Alia Route Start Time Stop Time Status Last Admin (NS Flush) 2 ml UNSCH PRN IV FLUSH 05/05/17 09:30 Sodium Chloride 1,000 ml @ 50 mls/hr Q20H IV 05/05/17 13:12 05/09/17 16:38 (Morphine Inj) 2 mg Q2H PRN IV PUSH 05/05/17 14:00 05/09/17 22:33 (Duoneb Neb) 1 ampule Q2HR NEB PRN INH 05/05/17 13:15 05/07/17 14:30 Miscellaneous Information 1 Q361D XX 05/05/17 13:15 (Chlorhexidine 2% Cloth) 3 pack Taper DAILY@04 TOP 05/06/17 04:00 05/02/18 03:59 05/08/17 04:00 (Chlorhexidine 2% Cloth) 3 pack UNSCH PRN TOP 05/05/17 13:15 Piperacillin Sod/ Tazobactam Sod 100 ml @ 200 mls/hr Q8H IV 05/05/17 14:00 05/09/17 21:54 (Zofran Inj) 4 mg Q6H PRN IV PUSH 05/05/17 15:45 (Narcan Inj) 0.4 mg UNSCH PRN IV PUSH 05/05/17 15:45 (Benadryl Inj) 25 mg Q6H PRN IV PUSH 05/05/17 15:45 (Albuterol Concentrated Neb) 2.5 mg Q6HR NEB NEB 05/05/17 16:00 05/09/17 20:22 (Peridex 0.12% Liq) 15 ml BID@08,20 MT 05/05/17 20:00 05/09/17 20:00 (Dilaudid Pf Inj) 1 mg Q1H PRN IV PUSH 05/05/17 16:30 05/09/17 17:22 (Pepcid Inj) 10 mg Q12HR IV PUSH 05/06/17 09:00 05/09/17 20:47 Acetaminophen 100 ml @ 400 mls/hr Q6H PRN IV 05/07/17 15:15 05/07/17 15:57 (Cardizem) 30 mg Q6HR PO 05/08/17 13:00 05/09/17 17:21 Amiodarone HCl 450 mg/Sodium Chloride 250 ml @ 33.33 mls/ hr TITRATE PRN IV 05/08/17 20:30 A/P Problem List: (1) Respiratory failure ICD Code: J96.90 - Respiratory failure, unspecified, unspecified whether with hypoxia or hypercapnia Status: Acute (2) Peritonitis ICD Code: K65.9 - Peritonitis, unspecified (3) ART (acute kidney injury) ICD Code: N17.9 - Acute kidney failure, unspecified (4) COPD with exacerbation ICD Code: J44.1 - Chronic obstructive pulmonary disease with (acute) exacerbation Status: Acute (5) Perforated diverticulum of small intestine ICD Code: K57.00 - Diverticulitis of small intestine with perforation and abscess without bleeding Status: Acute (6) Paroxysmal atrial fibrillation with rapid ventricular response ICD Code: I48.0 - Paroxysmal atrial fibrillation Assessment and Plan 1. Bronchodilators. 2. Zosyn. 3. Incentive spirometer. 5. Heparin dvt px. 6. Pepcid. 7. Mobilize. 8. Transfer. 9. Continue NG suction. 10. off amiodarone drip on cardizem po. meds as per cardiology. 11.sp K and Mag bolus. Overall impression: S/P laparotomy for peritonitis, complicated by exacerbated COPD and paroxysmal atrial fibrillation. Bronchospasm resolved quickly and extubation accomplished 05/06. Gen Rosario MD May 09, 2017 15:28
--- NOTE | 2017-05-09 15:33 | HHI.CCPN ---
Subjective Remarks/Hospital Course 86 y/o man s/p repair of proximal small bowel perforated diverticulum. On mechanical ventilation. 05/06: Gas exchange acceptable. Well perfused. Considerable pain and agitation when sedation weaned. May need MEDICAL DIR for extubation. NG to LIS and abdomen well decompressed. 05/07: Extubated yesterday and breathing comfortably today. Continue NG to LIS as patient has proximal small bowel anastomosis. Do not removed NG until OK with Surgery Service. 05/08: Patient developed new a-fib and hypotension last night. Cardioversion attempted without success but he converted after amiodarone bolus and gtt. K 3.7. Now in NSR and well perfused. His care is complicated by paroxysms of bronchospasm/COPD/bronchitis. I have asked Cardiology to advise as to adjustment of meds. Surgery will decide when to remove NG tube; for now leave in place to suction. 05/09: Back and forth in a-fib. Breathing with acceptable comfort. Bronchospasm reasonably well controlled. Objective Vital Signs Date Time Temp Pulse Resp B/P (MAP) Pulse Ox O2 Delivery O2 Flow Rate FiO2 05/09/17 13:38 26 05/09/17 08:24 96 Nasal Cannula 2.00 05/09/17 06:00 79 05/09/17 04:00 98.5 138/65 (89) 05/06/17 12:45 45 Intake and Output 05/09/17 05/09/17 05/10/17 08:00 16:00 00:00 Output Total 670 ml Balance -670 ml Result Diagram: 05/08/17 0534 05/08/17 0534 Objective Remarks Head: Normal. Neck: Supple. Airway widely patent. Lungs: Clear, light wheezes persist but good bilateral air movement. Heart: NL S1S2, RRR. No JVD. Abdomen: Midline incision, clean dry dressing. Quiet. Extremities: Warm, well perfused. No edema. Neuro: Conversant, alert. KIM. Moves 4 limbs to command. A/P Problem List: (1) Perforated diverticulum of small intestine ICD Code: K57.00 - Diverticulitis of small intestine with perforation and abscess without bleeding Status: Acute (2) Peritonitis ICD Code: K65.9 - Peritonitis, unspecified (3) Respiratory failure ICD Code: J96.90 - Respiratory failure, unspecified, unspecified whether with hypoxia or hypercapnia Status: Acute (4) COPD with exacerbation ICD Code: J44.1 - Chronic obstructive pulmonary disease with (acute) exacerbation Status: Acute (5) Paroxysmal atrial fibrillation with rapid ventricular response ICD Code: I48.0 - Paroxysmal atrial fibrillation (6) ART (acute kidney injury) ICD Code: N17.9 - Acute kidney failure, unspecified Assessment and Plan Plan: 1. Bronchodilators. 2. Zosyn. 3. Incentive spirometer. 5. Heparin dvt px. 6. Pepcid. 7. Mobilize. 8. Transfer. 9. Continue NG suction. 10. Amiodarone gtt, adjust meds per Cardiology Service. 11. K and Mag bolus. Overall impression: S/P laparotomy for peritonitis, complicated by exacerbated COPD and paroxysmal atrial fibrillation. Bronchospasm resolved quickly and extubation accomplished 05/06. Jerome Islas MD May 09, 2017 15:33
[2017-05-09] MEDS: SODIUM CHLOR 0.9% 1000 ML INJ 1,000 ML IV SCH (16:38)
[2017-05-09] MEDS: MORPHINE SULFATE 4 MG/ML INJ IV PUSH PRN (22:33)
--- NOTE | 2017-05-09 22:54 | EKG ---
Date Performed: 05/08/2017 Time Performed: 11:39:00 PTAGE: 86 years EKG: Sinus rhythm . Normal ECG NO PREVIOUS TRACING DOCTOR: Estrellita Mckinney Interpretating Date/Time 05/09/2017 22:51:38
[2017-05-10] VITALS (12 sets, daily range): BP systolic 130–150; BP diastolic 63–76; PULSE 84–94; RESP 10–25; TEMP 97.8–98.7; O2SAT 93–100
[2017-05-10] MEDS: DILTIAZEM HCL 30 MG TAB PO SCH ×4 (00:05→18:00)
[2017-05-10] MEDS: RESP: ALBUTEROL CONC 2.5 MG/0.5 ML NEB NEB SCH ×4 (03:36→19:59)
[2017-05-10] MEDS: CHLORHEXIDINE GLUCONATE 2 % 1 PACK (2 CLOTHS) TOP SCH (04:00)
[2017-05-10] MEDS: PIPERACIL-TAZO 4.5 GM PREMIX 100 ML IV SCH ×3 (05:46→17:18)
[2017-05-10] MEDS: CHLORHEXIDINE 0.12% (ORAL KIT) 15 ML CUP MT SCH ×2 (08:00→20:00)
[2017-05-10] MEDS: MORPHINE SULFATE 4 MG/ML INJ IV PUSH PRN ×2 (09:09→14:00)
[2017-05-10] MEDS: FAMOTIDINE 20 MG/2 ML VIAL IV PUSH SCH ×2 (09:10→20:40)
[2017-05-10] MEDS ORDERED: ROCURONIUM INJ 50 MG/5 ML SYRINGE IV PUSH ONE (12:00)
[2017-05-10] MEDS ORDERED: ONDANSETRON HCL 4 MG/2 ML VIAL IV ONE (12:00)
[2017-05-10] MEDS ORDERED: DEXAMETHASONE SOD PHOS 4 MG/ML VIAL IV ONE (12:00)
[2017-05-10] MEDS ORDERED: PROPOFOL 200 MG/20 ML AMP IV ONE (12:00)
[2017-05-10] MEDS ORDERED: LIDOCAINE HCL 1% PF 5 ML SYRINGE OTHER ONE (12:00)
--- NOTE | 2017-05-10 12:25 | RADRPT ---
EXAM DATE/TIME: 05/10/2017 12:03 [facility] COMPARISON: No previous studies available for comparison. INDICATIONS : Abdominal distention. MEDICAL HISTORY : Hypertension. SURGICAL HISTORY : Left total hip arthroplasty. ENCOUNTER: Subsequent ACUITY: 4 - 6 days PAIN SCORE: 0/10 LOCATION: Abdomen. FINDINGS: Postsurgical changes are noted in the abdomen. Abdominal wall abdelrahman to the right of midline are not ed. Surgical drain is identified along the left side of the abdomen. Gas pattern is nonspecific with air identified in both nondistended loops of small and large intestin e. There is no evidence of mass effect or free air. CONCLUSION: 1. Status post abdominal surgery. 2. Nonspecific gas pattern without significant ileus. 3. Left hip prosthesis. Antoine Valdivia MD on May 10, 2017 at 12:21 Board Certified Radiologist. This report was verified electronically.
[2017-05-10] MEDS: SODIUM CHLOR 0.9% 1000 ML INJ 1,000 ML IV SCH (12:38)
[2017-05-10 13:16] LABS: AUTOMATED NEUTROPHIL # 12.9 TH/MM3 (1.8-7.7); BASOPHIL % 0.3 % (0.0-2.0); EOSINOPHIL # 0.2 TH/MM3 (0-0.4); EOSINOPHIL % 1.4 % (0.0-4.0); HEMATOCRIT 32.2 % (39.0-51.0); HEMOGLOBIN 10.9 GM/DL (13.0-17.0); LYMPH % 2.5 % (9.0-44.0); LYMPHOCYTE # 0.4 TH/MM3 (1.0-4.8); MEAN CELL VOLUME 93.5 FL (80.0-100.0); MEAN CORPUSCULAR HEMOGLOBIN 31.6 PG (27.0-34.0); MEAN CORPUSCULAR HGB CONC 33.8 % (32.0-36.0); MEAN PLATELET VOLUME 7.2 FL (7.0-11.0); MONOCYTE # 0.9 TH/MM3 (0-0.9); NEUT % 89.8 % (16.0-70.0); PLATELET COUNT 215 TH/MM3 (150-450); RED BLOOD COUNT 3.45 MIL/MM3 (4.50-5.90); RED CELL DISTRIBUTION WIDTH 13.5 % (11.6-17.2); WHITE BLOOD COUNT 14.4 TH/MM3 (4.0-11.0)
--- NOTE | 2017-05-10 13:17 | HHI.PR ---
Subjective Subjective Notes Up to chair felt a "pop" this morning Objective Vitals/I&O Vital Signs Date Time Temp Pulse Resp B/P (MAP) Pulse Ox O2 Delivery O2 Flow Rate FiO2 05/10/17 10:00 94 05/10/17 08:00 97.8 24 141/67 (91) 100 05/10/17 07:54 21 05/09/17 20:19 Nasal Cannula 2.00 Labs Laboratory Tests Test 05/10/17 12:58 Date/Time Source Procedure Growth Status 05/05/17 14:14 Fluid Other Gram Stain - Final Complete 05/05/17 14:14 Body Fluid Culture - Final Klebsiella Pneumoniae Multi-Drug Resistant Complete Radiology Last 48 hours Impressions Abdomen X-Ray 05/05/17 1017 Signed Impressions: Service Date/Time: Friday, May 05, 2017 10:47 - CONCLUSION: 1. Pneumoperitoneum on the right side. Prashanth Mcintyre MD Abdomen/Pelvis CT 05/05/17 0917 Signed Impressions: Service Date/Time: Friday, May 05, 2017 12:15 - CONCLUSION: 1. Free intraperitoneal air likely from bowel perforation. Most likely location is at the splenic flexure where there is a 4 cm air-fluid level characteristic of an abscess. Differential diagnosis is localized diverticulitis or colitis. Tucker Rivera MD Cardiovascular: Regular Lungs: Clear Abdomen: Other (abdomen minimally tender to palpation; abdelrahman intake; distended; scant drainage on 4x4 ) Extremities: No edema A/P Assessment and Plan 86 year old male POD5 exp lap, resection of jejunum -Cardiology following---on PO Cardizem -NPO -Abdominal binder -Check KUB -Will check a set of labs today -OOB as tolerated ---PT -Continue Zosyn Attending Note - Dr. Dang Examined patient; large amount serosanguinous fluid on bandages; with patient's report of feeling a "pop" while coughing, and physical findings, he has a dehiscence of his wound. Discussed with patient and family; he will need emergent intervention with reclosure of wound with retention sutures. Discussed risks, benefits, alternatives and convalescence with patient and family; they vocalize understanding and agree to proceed with surgery. The exam, history, and the medical decision-making described in the above note were completed with the assistance of the mid-level provider. I reviewed and agree with the findings presented. I attest that I had a [id number] encounter with the patient on the same day, and personally performed and documented my assessment and findings in the medical record. Alma Miller/First Bernardo HIDALGO May 10, 2017 13:17 Rogelio Dang MD May 10, 2017 16:25
[2017-05-10 13:45] LABS: ALBUMIN 1.8 GM/DL (3.4-5.0); AST (GOT) 14 U/L (15-37); BICARBONATE 25.3 MEQ/L (21.0-32.0); BLOOD UREA NITROGEN 22 MG/DL (7-18); CALCIUM 8.1 MG/DL (8.5-10.1); CHLORIDE 109 MEQ/L (98-107); CREATININE 1.15 MG/DL (0.60-1.30); GLOMERULAR FILTRATION RATE 60 ML/MIN (>89); GLUCOSE,RANDOM 141 MG/DL (74-106); SODIUM (NA) 142 MEQ/L (136-145)
[2017-05-10 13:47] LABS: ALT (GPT) 18 U/L (12-78)
[2017-05-10 13:49] LABS: ALKALINE PHOSPHATASE 63 U/L (45-117); TOTAL BILIRUBIN ADULT 0.6 MG/DL (0.2-1.0); TOTAL PROTEIN 5.3 GM/DL (6.4-8.2)
[2017-05-10] MEDS ORDERED: ACETAMINOPHEN 500 MG CPLT PO PRN (14:15)
--- NOTE | 2017-05-10 15:34 | PD.CARD.PN ---
Subjective Subjective Remarks No events overnight Onaway a pop this morning with moving Up to the chair Telemetry showing NSR Objective Medications Current Medications Medications (Trade) Dose Ordered Sig/Alia Route Start Time Stop Time Status Last Admin (NS Flush) 2 ml UNSCH PRN IV FLUSH 05/05/17 09:30 Sodium Chloride 1,000 ml @ 50 mls/hr Q20H IV 05/05/17 13:12 05/09/17 16:38 (Morphine Inj) 2 mg Q2H PRN IV PUSH 05/05/17 14:00 05/10/17 14:00 (Duoneb Neb) 1 ampule Q2HR NEB PRN INH 05/05/17 13:15 05/07/17 14:30 Miscellaneous Information 1 Q361D XX 05/05/17 13:15 (Chlorhexidine 2% Cloth) 3 pack Taper DAILY@04 TOP 05/06/17 04:00 05/02/18 03:59 05/10/17 04:00 (Chlorhexidine 2% Cloth) 3 pack UNSCH PRN TOP 05/05/17 13:15 Piperacillin Sod/ Tazobactam Sod 100 ml @ 200 mls/hr Q8H IV 05/05/17 14:00 05/10/17 14:01 (Zofran Inj) 4 mg Q6H PRN IV PUSH 05/05/17 15:45 (Narcan Inj) 0.4 mg UNSCH PRN IV PUSH 05/05/17 15:45 (Benadryl Inj) 25 mg Q6H PRN IV PUSH 05/05/17 15:45 05/10/17 02:18 (Albuterol Concentrated Neb) 2.5 mg Q6HR NEB NEB 05/05/17 16:00 05/10/17 08:21 (Peridex 0.12% Liq) 15 ml BID@08,20 MT 05/05/17 20:00 05/10/17 08:00 (Dilaudid Pf Inj) 1 mg Q1H PRN IV PUSH 05/05/17 16:30 05/09/17 17:22 (Pepcid Inj) 10 mg Q12HR IV PUSH 05/06/17 09:00 05/10/17 09:10 (Cardizem) 30 mg Q6HR PO 05/08/17 13:00 2/28/18 12:29 Amiodarone HCl 450 mg/Sodium Chloride 250 ml @ 33.33 mls/ hr TITRATE PRN IV 05/08/17 20:30 (Tylenol) 1,000 mg Q6H PRN PO 05/10/17 14:15 Vital Signs / I&O Vital Signs Date Time Temp Pulse Resp B/P (MAP) Pulse Ox O2 Delivery O2 Flow Rate FiO2 05/10/17 12:00 98.0 90 25 149/71 (97) 97 05/10/17 12:00 90 05/10/17 10:00 94 05/10/17 08:00 88 05/10/17 08:00 97.8 88 24 141/67 (91) 100 05/10/17 07:54 95 21 05/10/17 04:00 98.7 90 22 150/67 (94) 96 05/10/17 04:00 90 05/10/17 02:00 84 05/10/17 00:00 86 05/10/17 00:00 98.5 86 23 150/76 (100) 96 05/09/17 22:38 25 05/09/17 22:00 88 05/09/17 20:19 95 Nasal Cannula 2.00 05/09/17 20:00 98.3 84 18 157/72 (100) 95 05/09/17 20:00 84 05/09/17 18:00 92 05/09/17 17:52 12 05/09/17 16:00 75 05/09/17 16:00 99.1 75 16 157/78 (104) 99 I/O 05/09/17 05/09/17 05/09/17 05/10/17 05/10/17 05/10/17 06:59 14:59 22:59 06:59 14:59 22:59 Intake Total 100 ml 100 ml Output Total 670 ml 695 ml 690 ml Balance -670 ml 100 ml -595 ml -690 ml Intake IV Total 100 ml 100 ml Output Urine Total 500 ml 600 ml 550 ml Stool Total 0 ml Gastric Drainage Total 50 ml 50 ml 90 ml Drainage Total 120 ml 45 ml 50 ml Physical Exam GENERAL: NAD, AAOx3 SKIN: Warm and dry. HEAD: Atraumatic. Normocephalic. EYES: Pupils equal and round. No scleral icterus. No injection or drainage. ENT: No nasal bleeding or discharge. Mucous membranes pink and moist. NECK: Trachea midline. No JVD. CARDIOVASCULAR: Regular rate and rhythm. RESPIRATORY: No accessory muscle use. Clear to auscultation. Breath sounds equal bilaterally. GASTROINTESTINAL: Abdomen soft, non-tender, nondistended. Hepatic and splenic margins not palpable. Dressing clean/dry MUSCULOSKELETAL: Extremities without clubbing, cyanosis, or edema. No obvious deformities. NEUROLOGICAL: Awake and alert. No obvious cranial nerve deficits. Motor grossly within normal limits. Five out of 5 muscle strength in the arms and legs. Normal speech. PSYCHIATRIC: Appropriate mood and affect; insight and judgment normal. Laboratory Laboratory Tests Test 05/10/17 12:58 White Blood Count 14.4 TH/MM3 Red Blood Count 3.45 MIL/MM3 Hemoglobin 10.9 GM/DL Hematocrit 32.2 % Mean Corpuscular Volume 93.5 FL Mean Corpuscular Hemoglobin 31.6 PG Mean Corpuscular Hemoglobin Concent 33.8 % Red Cell Distribution Width 13.5 % Platelet Count 215 TH/MM3 Mean Platelet Volume 7.2 FL Neutrophils (%) (Auto) 89.8 % Lymphocytes (%) (Auto) 2.5 % Monocytes (%) (Auto) 6.0 % Eosinophils (%) (Auto) 1.4 % Basophils (%) (Auto) 0.3 % Neutrophils # (Auto) 12.9 TH/MM3 Lymphocytes # (Auto) 0.4 TH/MM3 Monocytes # (Auto) 0.9 TH/MM3 Eosinophils # (Auto) 0.2 TH/MM3 Basophils # (Auto) 0.0 TH/MM3 CBC Comment DIFF FINAL Differential Comment Blood Urea Nitrogen 22 MG/DL Creatinine 1.15 MG/DL Random Glucose 141 MG/DL Total Protein 5.3 GM/DL Albumin 1.8 GM/DL Calcium Level 8.1 MG/DL Alkaline Phosphatase 63 U/L Aspartate Amino Transf (AST/SGOT) 14 U/L Alanine Aminotransferase (ALT/SGPT) 18 U/L Total Bilirubin 0.6 MG/DL Sodium Level 142 MEQ/L Potassium Level 3.7 MEQ/L Chloride Level 109 MEQ/L Carbon Dioxide Level 25.3 MEQ/L Anion Gap 8 MEQ/L Estimat Glomerular Filtration Rate 60 ML/MIN Imaging Last 24 hours Impressions Abdomen X-Ray 05/10/17 0000 Signed Impressions: Service Date/Time: Wednesday, May 10, 2017 12:03 - CONCLUSION: 1. Status post abdominal surgery. 2. Nonspecific gas pattern without significant ileus. 3. Left hip prosthesis. Antoine Valdivia MD Assessment and Plan Problem List: (1) Paroxysmal atrial fibrillation with rapid ventricular response ICD Codes: I48.0 - Paroxysmal atrial fibrillation (2) Perforated diverticulum of small intestine ICD Codes: K57.00 - Diverticulitis of small intestine with perforation and abscess without bleeding Status: Acute (3) COPD with exacerbation ICD Codes: J44.1 - Chronic obstructive pulmonary disease with (acute) exacerbation Status: Acute (4) Peritonitis ICD Codes: K65.9 - Peritonitis, unspecified Assessment and Plan 1) Afib with RVR Converted to NSR with Amiodarone Blood pressure now better, previously hypotensive Placed on Cardizem PO Amiodarone drip stopped Will avoid Beta Blockers for now, concern for bronchospasm 2) EF 60-65%, stage 1 diastolic dysfunction 3) CHADSVASc=3 Discussed extensively with him and his family his risk of stroke vs bleeding and that his risk of stroke is higher than his risk of bleeding He would like to continue on ASA 81mg daily for anti-coagulation, understands that this proves little protection Gregorio Uriostegui DO May 10, 2017 15:34
[2017-05-10] MEDS ORDERED: ACETAMINOPHEN 1000 MG/100 ML 100 ML IV ONE (16:39)
[2017-05-10] MEDS ORDERED: HYDROmorphone HCL PF 2 MG/ML VIAL ONE (16:39)
[2017-05-10] MEDS ORDERED: MIDAZOLAM HCL 2 MG/2 ML VIAL ONE (16:40)
[2017-05-10] MEDS ORDERED: fentaNYL CITRATE 250 MCG/5 ML AMP ONE (16:40)
[2017-05-10] MEDS ORDERED: SUGAMMADEX SODIUM 200 MG/2 ML VIAL IV PUSH ONE (17:40)
[2017-05-10] MEDS ORDERED: *RESP: ALBUTEROL 2.5 MG/3 ML NEB (PRN) PERIprocedural Use ONLY NEB ONE (18:29)
[2017-05-10] MEDS ORDERED: DO NOT ADM ANY ANTICOAGULANT DRUGS PRN (18:30)
--- NOTE | 2017-05-10 18:37 | HHI.PR ---
cc: Rogelio Dang MD Immediate Post Op Note Procedure Date: May 10, 2017 Pre Op Diagnosis: Wound dehiscence Post Op Diagnosis: Same Surgeon: Rogelio Dang Dry Room Attendant(s): Mukul Arenas CFA Procedure: Exploration with wound closure with retention sutures Findings: Suture failure right upper abdomen Complications: None Specimen(s) removed: None Estimated blood loss: 30 ml Anesthesia: General Drains: None IVF (700 ml) Patient to: PACU Patient Condition: Good Date/Time of Procedure: SEE SURGICAL CARE RECORD Rogelio Dang MD May 10, 2017 18:37
[2017-05-10] MEDS ORDERED: *morphine SULFATE 4 MG/ML PERIprocedure ONLY ONE ×3 (18:41→18:50)
--- NOTE | 2017-05-10 18:52 | MP ---
cc: Rogelio Dang MD DATE OF OPERATION: 05/10/2017 PROCEDURE: Exploratory laparotomy with washout and wound closure with retention sutures. PREOPERATIVE DIAGNOSIS: Dehiscence of wound due to coughing. POSTOPERATIVE DIAGNOSIS: Dehiscence of wound due to coughing with suture failure. ANESTHESIA: General endotracheal. SURGEON: Rogelio Dang MD ESTIMATED BLOOD LOSS: 30 mL. FLUIDS: Crystalloid 700 mL. COMPLICATIONS: None. DRAINS: RAMIN drain was already in place. SPECIMEN: None. PROCEDURE IN DETAIL: The patient was taken to the operating room and placed on the operating table in the supine position. The abdomen was prepped and draped. Timeout was taken confirming the correct patient, site, and procedure to be performed. All abdelrahman were removed and the patient was noted to have a wound dehiscence in the upper portion of the wound. The looped PDS suture was completely removed and the abdomen then irrigated. Preparations were made to place retention sutures and #2 nylon was utilized to place the retention sutures. A total of 4 retention sutures were placed. Following this, #2 Prolene in a simple interrupted fashion was used in the fascia closely spaced to minimize risk of recurrence. Careful palpation with finger between each of the sutures revealed 2 or 3 areas where the sutures were spaced slightly further apart and additional sutures were placed in these locations. With all gaps closed, the retention sutures were cinched down with utilization of a 14-[place] red rubber for skin bridging. The skin was then closed loosely abdelrahman. The drain and the midline incision were covered with 4 x 4s and Medipore tape. The patient was extubated and taken back to the recovery room in stable condition. Sponge, needle and instrument counts were reported to be correct x2. Rogelio Dang MD MAF/cc , 06:40 PM , 06:50 PM
[2017-05-10] MEDS: RESP: ALBUTEROL 2.5 MG/IPRATROPIUM 0.5 MG NEB (PRN) INH (19:19)
[2017-05-10] MEDS: HYDROmorphone HCL PF 2 MG/ML VIAL IV PUSH PRN (19:19)
[2017-05-10 20:23] LABS: BICARBONATE 25.1 MEQ/L (21.0-32.0); CALCIUM 8.1 MG/DL (8.5-10.1); CREATININE 1.19 MG/DL (0.60-1.30)
--- NOTE | 2017-05-10 23:51 | HHI.PR ---
Subjective Remarks Deferred entry - patient seen around 12:30 pm Patient states felt a popping sound this am. Denies cp, sob. on normal sinus rythm Objective Vitals Vital Signs Date Time Temp Pulse Resp B/P (MAP) Pulse Ox O2 Delivery O2 Flow Rate FiO2 05/10/17 20:03 93 Nasal Cannula 4.00 05/10/17 20:01 91 28 128/69 (88) 93 Nasal Cannula 4 05/10/17 20:00 93 05/10/17 20:00 98.5 93 10 130/76 (94) 94 05/10/17 19:49 12 05/10/17 19:00 94 28 136/71 (92) 85 Nasal Cannula 4 05/10/17 18:45 98 28 147/82 (103) 85 Nasal Cannula 4 05/10/17 18:35 98.1 97 28 135/93 (107) 85 Simple Mask 6 05/10/17 16:00 89 05/10/17 16:00 98.3 89 22 141/63 (89) 94 05/10/17 14:00 93 05/10/17 12:00 98.0 90 25 149/71 (97) 97 05/10/17 12:00 90 05/10/17 10:00 94 05/10/17 08:00 88 05/10/17 08:00 97.8 88 24 141/67 (91) 100 05/10/17 07:54 95 21 05/10/17 04:00 98.7 90 22 150/67 (94) 96 05/10/17 04:00 90 05/10/17 02:00 84 05/10/17 00:00 86 05/10/17 00:00 98.5 86 23 150/76 (100) 96 I/O 05/10/17 05/10/17 05/10/17 05/11/17 05/11/17 05/11/17 07:00 15:00 23:00 07:00 15:00 23:00 Intake Total 1300 ml Output Total 690 ml 890 ml Balance -690 ml 410 ml Intake Oral 0 ml IV Total 600 ml Other 700 ml Output Urine Total 550 ml 650 ml Gastric Drainage Total 90 ml Drainage Total 50 ml 110 ml Estimated Blood Loss 30 ml Other 100 ml Result Diagram: 05/10/17 1258 05/10/17 2490 Objective Remarks Head: Normal. Neck: Supple. Airway widely patent. Lungs: Clear, light wheezes persist but good bilateral air movement. Heart: NL S1S2, RRR. No JVD. Abdomen: Midline incision, clean dry dressing. Quiet. Extremities: Warm, well perfused. No edema. Neuro: Conversant, alert. KIM. Moves 4 limbs to command. A/P Problem List: (1) Respiratory failure ICD Code: J96.90 - Respiratory failure, unspecified, unspecified whether with hypoxia or hypercapnia Status: Acute (2) Peritonitis ICD Code: K65.9 - Peritonitis, unspecified (3) ART (acute kidney injury) ICD Code: N17.9 - Acute kidney failure, unspecified (4) COPD with exacerbation ICD Code: J44.1 - Chronic obstructive pulmonary disease with (acute) exacerbation Status: Acute (5) Perforated diverticulum of small intestine ICD Code: K57.00 - Diverticulitis of small intestine with perforation and abscess without bleeding Status: Acute (6) Paroxysmal atrial fibrillation with rapid ventricular response ICD Code: I48.0 - Paroxysmal atrial fibrillation Assessment and Plan 1. Bronchodilators. 2. Zosyn. 3. Incentive spirometer. 5. Heparin dvt px. 6. Pepcid. 7. Mobilize. 8. Transfer. 9. Continue NG suction. 10. off amiodarone drip on cardizem po. meds as per cardiology. 11.sp K and Mag bolus. Overall impression: S/P laparotomy for peritonitis, complicated by exacerbated COPD and paroxysmal atrial fibrillation. Bronchospasm resolved quickly and extubation accomplished 05/06. Gen Rosario MD May 10, 2017 23:51
[2017-05-11] VITALS (14 sets, daily range): BP systolic 125–170; BP diastolic 64–85; PULSE 79–102; RESP 11–23; TEMP 98.1–98.7; O2SAT 9–100
[2017-05-11] MEDS: PIPERACIL-TAZO 4.5 GM PREMIX 100 ML IV SCH ×2 (02:00→08:55)
[2017-05-11] MEDS: HYDROmorphone HCL PF 2 MG/ML VIAL IV PUSH PRN (02:00)
[2017-05-11] MEDS: RESP: ALBUTEROL CONC 2.5 MG/0.5 ML NEB NEB SCH ×4 (03:41→20:17)
[2017-05-11] MEDS: CHLORHEXIDINE GLUCONATE 2 % 1 PACK (2 CLOTHS) TOP SCH (04:00)
[2017-05-11] MEDS: SODIUM CHLOR 0.9% 1000 ML INJ 1,000 ML IV SCH ×2 (04:01→19:00)
[2017-05-11 05:03] LABS: AUTOMATED NEUTROPHIL # 13.4 TH/MM3 (1.8-7.7); HEMATOCRIT 32.7 % (39.0-51.0); HEMOGLOBIN 11.1 GM/DL (13.0-17.0); LYMPH % 2.5 % (9.0-44.0); LYMPHOCYTE # 0.3 TH/MM3 (1.0-4.8); MEAN CELL VOLUME 92.1 FL (80.0-100.0); MEAN CORPUSCULAR HEMOGLOBIN 31.2 PG (27.0-34.0); MEAN CORPUSCULAR HGB CONC 33.9 % (32.0-36.0); MEAN PLATELET VOLUME 7.1 FL (7.0-11.0); MONO % 1.7 % (0.0-8.0); MONOCYTE # 0.2 TH/MM3 (0-0.9); NEUT % 95.8 % (16.0-70.0); PLATELET COUNT 197 TH/MM3 (150-450); RED BLOOD COUNT 3.55 MIL/MM3 (4.50-5.90); RED CELL DISTRIBUTION WIDTH 13.5 % (11.6-17.2); WHITE BLOOD COUNT 13.9 TH/MM3 (4.0-11.0)
[2017-05-11] MEDS: DILTIAZEM HCL 30 MG TAB PO SCH ×4 (06:00→18:00)
[2017-05-11] MEDS: MORPHINE SULFATE 4 MG/ML INJ IV PUSH PRN ×2 (06:38→14:07)
[2017-05-11] MEDS: CHLORHEXIDINE 0.12% (ORAL KIT) 15 ML CUP MT SCH ×2 (07:29→20:00)
[2017-05-11] MEDS: FAMOTIDINE 20 MG/2 ML VIAL IV PUSH SCH ×2 (08:55→22:10)
--- NOTE | 2017-05-11 11:21 | PD.CARD.PN ---
Subjective Subjective Remarks Repeat surgery yesterday secondary to wound dehiscence Telemetry showing NSR/sinus tachycardia Objective Medications Current Medications Medications (Trade) Dose Ordered Sig/Alia Route Start Time Stop Time Status Last Admin (NS Flush) 2 ml UNSCH PRN IV FLUSH 05/05/17 09:30 Sodium Chloride 1,000 ml @ 50 mls/hr Q20H IV 05/05/17 13:12 05/11/17 04:01 (Morphine Inj) 2 mg Q2H PRN IV PUSH 05/05/17 14:00 05/11/17 06:38 (Duoneb Neb) 1 ampule Q2HR NEB PRN INH 05/05/17 13:15 05/10/17 19:19 Miscellaneous Information 1 Q361D XX 05/05/17 13:15 (Chlorhexidine 2% Cloth) Taper DAILY@04 TOP 05/06/17 04:00 05/02/18 03:59 05/10/17 04:00 (Chlorhexidine 2% Cloth) 3 pack UNSCH PRN TOP 05/05/17 13:15 (Zofran Inj) 4 mg Q6H PRN IV PUSH 05/05/17 15:45 (Narcan Inj) 0.4 mg UNSCH PRN IV PUSH 05/05/17 15:45 (Benadryl Inj) 25 mg Q6H PRN IV PUSH 05/05/17 15:45 05/10/17 02:18 (Albuterol Concentrated Neb) 2.5 mg Q6HR NEB NEB 05/05/17 16:00 05/11/17 08:25 (Peridex 0.12% Liq) 15 ml BID@08,20 MT 05/05/17 20:00 05/11/17 07:29 (Pepcid Inj) 10 mg Q12HR IV PUSH 05/06/17 09:00 05/11/17 08:55 (Cardizem) 30 mg Q6HR PO 05/08/17 13:00 05/10/17 12:29 Amiodarone HCl 450 mg/Sodium Chloride 250 ml @ 33.33 mls/ hr TITRATE PRN IV 05/08/17 20:30 (Tylenol) 1,000 mg Q6H PRN PO 05/10/17 14:15 Miscellaneous Information ALL NURSING DEPARTME... UNSCH PRN .XX 05/10/17 18:30 05/11/17 18:29 Piperacillin Sod/ Tazobactam Sod 50 ml @ 100 mls/hr Q6H IV 05/11/17 16:00 Acetaminophen 100 ml @ 400 mls/hr Q6H IV 05/11/17 11:00 Vital Signs / I&O Vital Signs Date Time Temp Pulse Resp B/P (MAP) Pulse Ox O2 Delivery O2 Flow Rate FiO2 05/11/17 10:00 102 05/11/17 08:00 87 05/11/17 08:00 98.1 87 17 153/64 (93) 96 05/11/17 06:43 16 05/11/17 06:00 93 05/11/17 04:00 98.2 86 12 170/85 (113) 100 05/11/17 04:00 86 05/11/17 03:42 98 Nasal Cannula 3.00 05/11/17 02:30 14 05/11/17 02:00 94 05/11/17 00:00 79 05/11/17 00:00 98.7 79 11 125/68 (87) 98 05/10/17 22:00 84 05/10/17 20:03 93 Nasal Cannula 4.00 05/10/17 20:01 91 28 128/69 (88) 93 Nasal Cannula 4 05/10/17 20:00 93 05/10/17 20:00 98.5 93 10 130/76 (94) 94 05/10/17 19:00 94 28 136/71 (92) 85 Nasal Cannula 4 05/10/17 18:45 98 28 147/82 (103) 85 Nasal Cannula 4 05/10/17 18:35 98.1 97 28 135/93 (107) 85 Simple Mask 6 05/10/17 16:00 89 05/10/17 16:00 98.3 89 22 141/63 (89) 94 05/10/17 14:00 93 05/10/17 12:00 98.0 90 25 149/71 (97) 97 05/10/17 12:00 90 I/O 05/10/17 05/10/17 05/10/17 05/11/17 05/11/17 05/11/17 07:00 15:00 23:00 07:00 15:00 23:00 Intake Total 1300 ml 1361 ml Output Total 690 ml 890 ml 490 ml Balance -690 ml 410 ml 871 ml Intake Oral 0 ml IV Total 600 ml 1361 ml Other 700 ml Output Urine Total 550 ml 650 ml 450 ml Gastric Drainage Total 90 ml Drainage Total 50 ml 110 ml 40 ml Estimated Blood Loss 30 ml Other 100 ml Physical Exam GENERAL: NAD, AAOx3 SKIN: Warm and dry. HEAD: Atraumatic. Normocephalic. EYES: Pupils equal and round. No scleral icterus. No injection or drainage. ENT: No nasal bleeding or discharge. Mucous membranes pink and moist. NECK: Trachea midline. No JVD. CARDIOVASCULAR: Regular rate and rhythm. RESPIRATORY: No accessory muscle use. Clear to auscultation. Breath sounds equal bilaterally. GASTROINTESTINAL: Abdomen soft, non-tender, nondistended. Hepatic and splenic margins not palpable. Dressing clean/dry MUSCULOSKELETAL: Extremities without clubbing, cyanosis, or edema. No obvious deformities. NEUROLOGICAL: Awake and alert. No obvious cranial nerve deficits. Motor grossly within normal limits. Five out of 5 muscle strength in the arms and legs. Normal speech. PSYCHIATRIC: Appropriate mood and affect; insight and judgment normal. Laboratory Laboratory Tests Test 05/10/17 12:58 05/10/17 18:50 05/11/17 04:27 White Blood Count 14.4 TH/MM3 13.9 TH/MM3 Red Blood Count 3.45 MIL/MM3 3.55 MIL/MM3 Hemoglobin 10.9 GM/DL 11.1 GM/DL Hematocrit 32.2 % 32.7 % Mean Corpuscular Volume 93.5 FL 92.1 FL Mean Corpuscular Hemoglobin 31.6 PG 31.2 PG Mean Corpuscular Hemoglobin Concent 33.8 % 33.9 % Red Cell Distribution Width 13.5 % 13.5 % Platelet Count 215 TH/MM3 197 TH/MM3 Mean Platelet Volume 7.2 FL 7.1 FL Neutrophils (%) (Auto) 89.8 % 95.8 % Lymphocytes (%) (Auto) 2.5 % 2.5 % Monocytes (%) (Auto) 6.0 % 1.7 % Eosinophils (%) (Auto) 1.4 % 0.0 % Basophils (%) (Auto) 0.3 % 0.0 % Neutrophils # (Auto) 12.9 TH/MM3 13.4 TH/MM3 Lymphocytes # (Auto) 0.4 TH/MM3 0.3 TH/MM3 Monocytes # (Auto) 0.9 TH/MM3 0.2 TH/MM3 Eosinophils # (Auto) 0.2 TH/MM3 0.0 TH/MM3 Basophils # (Auto) 0.0 TH/MM3 0.0 TH/MM3 CBC Comment DIFF FINAL DIFF FINAL Differential Comment Blood Urea Nitrogen 22 MG/DL 21 MG/DL Creatinine 1.15 MG/DL 1.19 MG/DL Random Glucose 141 MG/DL 116 MG/DL Total Protein 5.3 GM/DL Albumin 1.8 GM/DL Calcium Level 8.1 MG/DL 8.1 MG/DL Alkaline Phosphatase 63 U/L Aspartate Amino Transf (AST/SGOT) 14 U/L Alanine Aminotransferase (ALT/SGPT) 18 U/L Total Bilirubin 0.6 MG/DL Sodium Level 142 MEQ/L 143 MEQ/L Potassium Level 3.7 MEQ/L 3.6 MEQ/L Chloride Level 109 MEQ/L 108 MEQ/L Carbon Dioxide Level 25.3 MEQ/L 25.1 MEQ/L Anion Gap 8 MEQ/L 10 MEQ/L Estimat Glomerular Filtration Rate 60 ML/MIN 58 ML/MIN Assessment and Plan Problem List: (1) Paroxysmal atrial fibrillation with rapid ventricular response ICD Codes: I48.0 - Paroxysmal atrial fibrillation (2) Perforated diverticulum of small intestine ICD Codes: K57.00 - Diverticulitis of small intestine with perforation and abscess without bleeding Status: Acute (3) COPD with exacerbation ICD Codes: J44.1 - Chronic obstructive pulmonary disease with (acute) exacerbation Status: Acute (4) Peritonitis ICD Codes: K65.9 - Peritonitis, unspecified Assessment and Plan 1) Afib with RVR Converted to NSR with Amiodarone Blood pressure now better, previously hypotensive Placed on Cardizem PO Amiodarone drip stopped Will avoid Beta Blockers for now, concern for bronchospasm Has not received Cardizem PO for 24 hours secondary to NPO status, will allow Cardizem PO with small sips of water 2) EF 60-65%, stage 1 diastolic dysfunction 3) CHADSVASc=3 Discussed extensively with him and his family his risk of stroke vs bleeding and that his risk of stroke is higher than his risk of bleeding He would like to continue on ASA 81mg daily for anti-coagulation, understands that this proves little protection Gregorio Uriostegui DO May 11, 2017 11:21
[2017-05-11] MEDS: ACETAMINOPHEN 1000 MG/100 ML 100 ML IV SCH ×3 (11:31→22:10)
[2017-05-11] MEDS: PIPERACIL-TAZO 2.25 GM PREMIX 50 ML IV SCH ×2 (16:00→22:10)
--- NOTE | 2017-05-11 16:28 | HHI.PR ---
Subjective Subjective Notes In bed Asking to go home tomorrow Pain controlled Objective Vitals/I&O Vital Signs Date Time Temp Pulse Resp B/P (MAP) Pulse Ox O2 Delivery O2 Flow Rate FiO2 05/11/17 14:00 89 05/11/17 12:00 98.1 22 156/82 (106) 95 05/11/17 03:42 Nasal Cannula 3.00 05/10/17 07:54 21 Labs Laboratory Tests Test 05/10/17 18:50 05/11/17 04:27 Blood Urea Nitrogen 21 Creatinine 1.19 Random Glucose 116 Calcium Level 8.1 Sodium Level 143 Potassium Level 3.6 Chloride Level 108 Carbon Dioxide Level 25.1 Anion Gap 10 Estimat Glomerular Filtration Rate 58 White Blood Count 13.9 Red Blood Count 3.55 Hemoglobin 11.1 Hematocrit 32.7 Mean Corpuscular Volume 92.1 Mean Corpuscular Hemoglobin 31.2 Mean Corpuscular Hemoglobin Concent 33.9 Red Cell Distribution Width 13.5 Platelet Count 197 Mean Platelet Volume 7.1 Neutrophils (%) (Auto) 95.8 Lymphocytes (%) (Auto) 2.5 Monocytes (%) (Auto) 1.7 Eosinophils (%) (Auto) 0.0 Basophils (%) (Auto) 0.0 Neutrophils # (Auto) 13.4 Lymphocytes # (Auto) 0.3 Monocytes # (Auto) 0.2 Eosinophils # (Auto) 0.0 Basophils # (Auto) 0.0 CBC Comment DIFF FINAL Differential Comment Date/Time Source Procedure Growth Status 05/05/17 14:14 Fluid Other Gram Stain - Final Complete 05/05/17 14:14 Body Fluid Culture - Final Klebsiella Pneumoniae Multi-Drug Resistant Complete Radiology Last 48 hours Impressions Abdomen X-Ray 05/05/17 1017 Signed Impressions: Service Date/Time: Friday, May 05, 2017 10:47 - CONCLUSION: 1. Pneumoperitoneum on the right side. Prashanth Mcintyre MD Abdomen/Pelvis CT 05/05/17 0917 Signed Impressions: Service Date/Time: Friday, May 05, 2017 12:15 - CONCLUSION: 1. Free intraperitoneal air likely from bowel perforation. Most likely location is at the splenic flexure where there is a 4 cm air-fluid level characteristic of an abscess. Differential diagnosis is localized diverticulitis or colitis. Tucker Rivera MD Cardiovascular: Regular Lungs: Clear Abdomen: Other (abdominal binder in place; dressing in place; retention sutures ; RAMIN with SS drainage ) Extremities: Other (mild peripheral edema ) A/P Assessment and Plan 86 year old male POD6 exp lap, resection of jejunum; POD1 placement of retention sutures due to wound dehiscence -Cardiology following---on PO Cardizem -Clear liquids -Abdominal binder -Monitor labs -Minimize narcotic pain medications; added IV Ofirmev -OOB as tolerated ---PT -Continue Zosyn Attending Note - Dr. Dang Abdomen soft Chest CTA without wheezing Morphine decreased to help combat confusion labs noted; WBC's 13.4 Stable Transfer to floor tomorrow with tele if uneventful night Discussed with patient and both sons; reiterated need for rehab and not discharge directly home; they vocalize understanding The exam, history, and the medical decision-making described in the above note were completed with the assistance of the mid-level provider. I reviewed and agree with the findings presented. I attest that I had a [id number] encounter with the patient on the same day, and personally performed and documented my assessment and findings in the medical record. Alma Miller/Product Delivery Specialist [employer] May 11, 2017 16:28 Rogelio Dang MD May 11, 2017 17:22
[2017-05-11] MEDS: ACETAMINOPHEN/HYDROcodone 325 MG/7.5 MG TAB PO PRN ×2 (17:40→22:12)
[2017-05-11] MEDS: ENOXAPARIN SODIUM 40 MG/0.4 ML SYRINGE SQ SCH (20:00)
[2017-05-11 21:28] LABS: AST (GOT) 24 U/L (15-37); BICARBONATE 23.7 MEQ/L (21.0-32.0); CALCIUM 8.1 MG/DL (8.5-10.1); CHLORIDE 109 MEQ/L (98-107); CREATININE 1.27 MG/DL (0.60-1.30); GLOMERULAR FILTRATION RATE 54 ML/MIN (>89); GLUCOSE,RANDOM 158 MG/DL (74-106); MAGNESIUM 1.9 MG/DL (1.5-2.5); SODIUM (NA) 143 MEQ/L (136-145)
[2017-05-11 21:29] LABS: ALT (GPT) 21 U/L (12-78); PHOSPHORUS 1.5 MG/DL (2.5-4.9)
[2017-05-11 21:31] LABS: ALKALINE PHOSPHATASE 61 U/L (45-117); TOTAL BILIRUBIN ADULT 0.6 MG/DL (0.2-1.0); TOTAL PROTEIN 5.4 GM/DL (6.4-8.2)
[2017-05-11 21:38] LABS: BASOPHIL % 0.1 % (0.0-2.0); EOSINOPHIL % 0.1 % (0.0-4.0); HEMATOCRIT 35.2 % (39.0-51.0); HEMOGLOBIN 11.7 GM/DL (13.0-17.0); LYMPH % 4.2 % (9.0-44.0); LYMPHOCYTE # 0.7 TH/MM3 (1.0-4.8); MEAN CELL VOLUME 92.7 FL (80.0-100.0); MEAN CORPUSCULAR HEMOGLOBIN 30.8 PG (27.0-34.0); MEAN CORPUSCULAR HGB CONC 33.2 % (32.0-36.0); MEAN PLATELET VOLUME 7.8 FL (7.0-11.0); MONO % 6.1 % (0.0-8.0); NEUT % 89.5 % (16.0-70.0); RED CELL DISTRIBUTION WIDTH 13.3 % (11.6-17.2); WHITE BLOOD COUNT 16.7 TH/MM3 (4.0-11.0)
[2017-05-11 21:39] LABS: PLATELET COUNT 160 TH/MM3 (150-450)
[2017-05-11 21:40] LABS: BLOOD UREA NITROGEN 23 MG/DL (7-18)
[2017-05-12] VITALS (14 sets, daily range): BP systolic 118–149; BP diastolic 62–79; PULSE 80–92; RESP 15–20; TEMP 97.7–98.6; O2SAT 93–98
[2017-05-12] MEDS: PIPERACIL-TAZO 2.25 GM PREMIX 50 ML IV SCH ×4 (03:32→20:13)
[2017-05-12] MEDS: RESP: ALBUTEROL CONC 2.5 MG/0.5 ML NEB NEB SCH ×2 (03:34→09:26)
[2017-05-12] MEDS: CHLORHEXIDINE GLUCONATE 2 % 1 PACK (2 CLOTHS) TOP SCH (04:00)
[2017-05-12] MEDS: ACETAMINOPHEN 1000 MG/100 ML 100 ML IV SCH ×2 (04:19→11:00)
[2017-05-12 05:14] LABS: AUTOMATED NEUTROPHIL # 11.5 TH/MM3 (1.8-7.7); BASOPHIL % 0.1 % (0.0-2.0); EOSINOPHIL % 0.3 % (0.0-4.0); HEMATOCRIT 29.7 % (39.0-51.0); HEMOGLOBIN 9.9 GM/DL (13.0-17.0); LYMPH % 5.4 % (9.0-44.0); LYMPHOCYTE # 0.7 TH/MM3 (1.0-4.8); MEAN CELL VOLUME 93.1 FL (80.0-100.0); MEAN CORPUSCULAR HEMOGLOBIN 30.9 PG (27.0-34.0); MEAN CORPUSCULAR HGB CONC 33.2 % (32.0-36.0); MEAN PLATELET VOLUME 7.4 FL (7.0-11.0); MONOCYTE # 0.8 TH/MM3 (0-0.9); NEUT % 88.2 % (16.0-70.0); PLATELET COUNT 227 TH/MM3 (150-450); RED BLOOD COUNT 3.19 MIL/MM3 (4.50-5.90); RED CELL DISTRIBUTION WIDTH 13.4 % (11.6-17.2)
[2017-05-12 05:37] LABS: ALBUMIN 1.9 GM/DL (3.4-5.0); ALT (GPT) 17 U/L (12-78); AST (GOT) 18 U/L (15-37); BICARBONATE 26.5 MEQ/L (21.0-32.0); BLOOD UREA NITROGEN 22 MG/DL (7-18); CALCIUM 7.8 MG/DL (8.5-10.1); CHLORIDE 109 MEQ/L (98-107); CREATININE 1.01 MG/DL (0.60-1.30); GLOMERULAR FILTRATION RATE 70 ML/MIN (>89); GLUCOSE,RANDOM 118 MG/DL (74-106); SODIUM (NA) 143 MEQ/L (136-145)
[2017-05-12 05:40] LABS: ALKALINE PHOSPHATASE 65 U/L (45-117); TOTAL BILIRUBIN ADULT 0.6 MG/DL (0.2-1.0)
[2017-05-12] MEDS: DILTIAZEM HCL 30 MG TAB PO SCH ×4 (06:00→17:09)
[2017-05-12] MEDS: CHLORHEXIDINE 0.12% (ORAL KIT) 15 ML CUP MT SCH ×2 (07:43→20:00)
[2017-05-12 08:12] LABS: TOTAL PROTEIN 5.2 GM/DL (6.4-8.2)
[2017-05-12] MEDS: ACETAMINOPHEN/HYDROcodone 325 MG/7.5 MG TAB PO PRN ×4 (08:55→21:59)
[2017-05-12] MEDS: FAMOTIDINE 20 MG/2 ML VIAL IV PUSH SCH ×2 (08:56→20:13)
--- NOTE | 2017-05-12 09:06 | HHI.PR ---
Subjective Remarks Deferred entry - patient seen on 05/11 7 pm Pain is controlled Patient denies cp/sob no BM Objective Vitals Vital Signs Date Time Temp Pulse Resp B/P (MAP) Pulse Ox O2 Delivery O2 Flow Rate FiO2 05/12/17 06:00 84 05/12/17 04:00 82 05/12/17 04:00 98.6 82 15 126/66 (86) 98 05/12/17 02:00 80 05/12/17 00:00 98.3 82 16 137/77 (97) 98 05/12/17 00:00 82 05/11/17 23:12 20 05/11/17 22:40 25 05/11/17 22:00 88 05/11/17 20:20 100 Nasal Cannula 3.00 05/11/17 20:00 86 05/11/17 20:00 98.3 86 23 133/64 (87) 23 05/11/17 18:00 85 05/11/17 16:00 96 05/11/17 16:00 98.3 100 12 127/77 (94) 9 05/11/17 14:00 89 05/11/17 12:00 98.1 92 22 156/82 (106) 95 05/11/17 12:00 92 05/11/17 10:00 102 I/O 05/11/17 05/11/17 05/11/17 05/12/17 05/12/17 05/12/17 07:00 15:00 23:00 07:00 15:00 23:00 Intake Total 1361 ml 100 ml 570 ml 440 ml Output Total 490 ml 500 ml 490 ml Balance 871 ml 100 ml 70 ml -50 ml Intake Oral 420 ml 240 ml IV Total 1361 ml 100 ml 150 ml 200 ml Output Urine Total 450 ml 450 ml 450 ml Drainage Total 40 ml 50 ml 40 ml # Bowel Movements 0 0 Result Diagram: 05/12/17 0424 05/12/17 0424 Imaging Last Impressions Abdomen X-Ray 05/10/17 0000 Signed Impressions: Service Date/Time: Wednesday, May 10, 2017 12:03 - CONCLUSION: 1. Status post abdominal surgery. 2. Nonspecific gas pattern without significant ileus. 3. Left hip prosthesis. Antoine Valdivia MD Chest X-Ray 05/06/17 1532 Signed Impressions: Service Date/Time: Saturday, May 06, 2017 04:51 - CONCLUSION: Mild patchy infiltrate left medial lung base. Right lung clear. Lines and tubes as above. Mikhail Garcia MD Abdomen/Pelvis CT 05/05/17 0917 Signed Impressions: Service Date/Time: Friday, May 05, 2017 12:15 - CONCLUSION: 1. Free intraperitoneal air likely from bowel perforation. Most likely location is at the splenic flexure where there is a 4 cm air-fluid level characteristic of an abscess. Differential diagnosis is localized diverticulitis or colitis. Tucker Rivera MD Objective Remarks Head: Normal. Neck: Supple. Airway widely patent. Lungs: Clear, light wheezes persist but good bilateral air movement. Heart: NL S1S2, RRR. No JVD. Abdomen: Midline incision, clean dry dressing. Quiet. Extremities: Warm, well perfused. No edema. Neuro: Conversant, alert. KIM. Moves 4 limbs to command. Urinary Catheter: No Vascular Central Line Catheter: No A/P Problem List: (1) Respiratory failure ICD Code: J96.90 - Respiratory failure, unspecified, unspecified whether with hypoxia or hypercapnia Status: Acute (2) Peritonitis ICD Code: K65.9 - Peritonitis, unspecified (3) ART (acute kidney injury) ICD Code: N17.9 - Acute kidney failure, unspecified (4) COPD with exacerbation ICD Code: J44.1 - Chronic obstructive pulmonary disease with (acute) exacerbation Status: Acute (5) Perforated diverticulum of small intestine ICD Code: K57.00 - Diverticulitis of small intestine with perforation and abscess without bleeding Status: Acute (6) Paroxysmal atrial fibrillation with rapid ventricular response ICD Code: I48.0 - Paroxysmal atrial fibrillation Assessment and Plan 1. Bronchodilators. 2. Zosyn. 3. Incentive spirometer. 5. Heparin dvt px. 6. Pepcid. 7. Mobilize. 8. Transfer. 9. Continue NG suction. 10. off amiodarone drip on cardizem po. meds as per cardiology. 11.sp K and Mag bolus. 12 Patient had wound dehiscence sp splattered laparotomy with washout and wound closure with retention sutures. 13. Patient will need rehab. Overall impression: S/P laparotomy for peritonitis, complicated by exacerbated COPD and paroxysmal atrial fibrillation. Bronchospasm resolved quickly and extubation accomplished 05/06. Gen Rosario MD May 12, 2017 09:06
--- NOTE | 2017-05-12 12:57 | PD.CARD.PN ---
Subjective Subjective Remarks Doing well, up to the chair, no complaints Telemetry showing NSR Objective Medications Current Medications Medications (Trade) Dose Ordered Sig/Alia Route Start Time Stop Time Status Last Admin (NS Flush) 2 ml UNSCH PRN IV FLUSH 05/05/17 09:30 Sodium Chloride 1,000 ml @ 50 mls/hr Q20H IV 05/05/17 13:12 05/11/17 19:00 (Duoneb Neb) 1 ampule Q2HR NEB PRN INH 05/05/17 13:15 05/10/17 19:19 Miscellaneous Information 1 Q361D XX 05/05/17 13:15 (Chlorhexidine 2% Cloth) Taper DAILY@04 TOP 05/06/17 04:00 05/02/18 03:59 05/10/17 04:00 (Chlorhexidine 2% Cloth) 3 pack UNSCH PRN TOP 05/05/17 13:15 (Zofran Inj) 4 mg Q6H PRN IV PUSH 05/05/17 15:45 (Narcan Inj) 0.4 mg UNSCH PRN IV PUSH 05/05/17 15:45 (Benadryl Inj) 25 mg Q6H PRN IV PUSH 05/05/17 15:45 05/10/17 02:18 (Peridex 0.12% Liq) 15 ml BID@08,20 MT 05/05/17 20:00 05/11/17 20:00 (Pepcid Inj) 10 mg Q12HR IV PUSH 05/06/17 09:00 05/12/17 08:56 (Cardizem) 30 mg Q6HR PO 05/08/17 13:00 05/12/17 12:00 Amiodarone HCl 450 mg/Sodium Chloride 250 ml @ 33.33 mls/ hr TITRATE PRN IV 05/08/17 20:30 (Tylenol) 1,000 mg Q6H PRN PO 05/10/17 14:15 Piperacillin Sod/ Tazobactam Sod 50 ml @ 100 mls/hr Q6H IV 05/11/17 16:00 05/12/17 08:55 Acetaminophen 100 ml @ 400 mls/hr Q6H IV 05/11/17 11:00 05/12/17 11:00 (Lovenox Inj) 40 mg Q24H SQ 05/11/17 20:00 05/11/17 20:00 (Strunk 7.5-325 Mg) 1 tab Q4H PRN PO 05/11/17 17:30 05/12/17 08:55 (Strunk 7.5-325 Mg) 2 tab Q4H PRN PO 05/11/17 17:30 05/11/17 22:12 Vital Signs / I&O Vital Signs Date Time Temp Pulse Resp B/P (MAP) Pulse Ox O2 Delivery O2 Flow Rate FiO2 05/12/17 12:00 84 05/12/17 12:00 97.7 84 18 118/62 (80) 97 05/12/17 10:00 88 05/12/17 09:04 95 Nasal Cannula 3.00 05/12/17 08:00 90 05/12/17 08:00 97.8 85 19 149/71 (97) 98 05/12/17 06:00 84 05/12/17 04:00 82 05/12/17 04:00 98.6 82 15 126/66 (86) 98 05/12/17 02:00 80 05/12/17 00:00 98.3 82 16 137/77 (97) 98 05/12/17 00:00 82 05/11/17 23:12 20 05/11/17 22:40 25 05/11/17 22:00 88 05/11/17 20:20 100 Nasal Cannula 3.00 05/11/17 20:00 86 05/11/17 20:00 98.3 86 23 133/64 (87) 23 05/11/17 18:00 85 05/11/17 16:00 96 05/11/17 16:00 98.3 100 12 127/77 (94) 9 05/11/17 14:00 89 I/O 05/11/17 05/11/17 05/11/17 05/12/17 05/12/17 05/12/17 07:00 15:00 23:00 07:00 15:00 23:00 Intake Total 1361 ml 100 ml 570 ml 440 ml Output Total 490 ml 500 ml 490 ml Balance 871 ml 100 ml 70 ml -50 ml Intake Oral 420 ml 240 ml IV Total 1361 ml 100 ml 150 ml 200 ml Output Urine Total 450 ml 450 ml 450 ml Drainage Total 40 ml 50 ml 40 ml # Bowel Movements 0 0 Physical Exam GENERAL: NAD, AAOx3 SKIN: Warm and dry. HEAD: Atraumatic. Normocephalic. EYES: Pupils equal and round. No scleral icterus. No injection or drainage. ENT: No nasal bleeding or discharge. Mucous membranes pink and moist. NECK: Trachea midline. No JVD. CARDIOVASCULAR: Regular rate and rhythm. RESPIRATORY: No accessory muscle use. Clear to auscultation. Breath sounds equal bilaterally. GASTROINTESTINAL: Abdomen soft, non-tender, nondistended. Hepatic and splenic margins not palpable. Dressing clean/dry MUSCULOSKELETAL: Extremities without clubbing, cyanosis, or edema. No obvious deformities. NEUROLOGICAL: Awake and alert. No obvious cranial nerve deficits. Motor grossly within normal limits. Five out of 5 muscle strength in the arms and legs. Normal speech. PSYCHIATRIC: Appropriate mood and affect; insight and judgment normal. Laboratory Laboratory Tests Test 05/11/17 20:44 05/12/17 04:24 White Blood Count 16.7 TH/MM3 13.0 TH/MM3 Red Blood Count 3.80 MIL/MM3 3.19 MIL/MM3 Hemoglobin 11.7 GM/DL 9.9 GM/DL Hematocrit 35.2 % 29.7 % Mean Corpuscular Volume 92.7 FL 93.1 FL Mean Corpuscular Hemoglobin 30.8 PG 30.9 PG Mean Corpuscular Hemoglobin Concent 33.2 % 33.2 % Red Cell Distribution Width 13.3 % 13.4 % Platelet Count 160 TH/MM3 227 TH/MM3 Mean Platelet Volume 7.8 FL 7.4 FL Neutrophils (%) (Auto) 89.5 % 88.2 % Lymphocytes (%) (Auto) 4.2 % 5.4 % Monocytes (%) (Auto) 6.1 % 6.0 % Eosinophils (%) (Auto) 0.1 % 0.3 % Basophils (%) (Auto) 0.1 % 0.1 % Neutrophils # (Auto) 15.0 TH/MM3 11.5 TH/MM3 Lymphocytes # (Auto) 0.7 TH/MM3 0.7 TH/MM3 Monocytes # (Auto) 1.0 TH/MM3 0.8 TH/MM3 Eosinophils # (Auto) 0.0 TH/MM3 0.0 TH/MM3 Basophils # (Auto) 0.0 TH/MM3 0.0 TH/MM3 CBC Comment AUTO DIFF DIFF FINAL Differential Comment AUTO DIFF CONFIRMED Blood Urea Nitrogen 23 MG/DL 22 MG/DL Creatinine 1.27 MG/DL 1.01 MG/DL Random Glucose 158 MG/DL 118 MG/DL Total Protein 5.4 GM/DL 5.2 GM/DL Albumin 2.0 GM/DL 1.9 GM/DL Calcium Level 8.1 MG/DL 7.8 MG/DL Phosphorus Level 1.5 MG/DL Magnesium Level 1.9 MG/DL Alkaline Phosphatase 61 U/L 65 U/L Aspartate Amino Transf (AST/SGOT) 24 U/L 18 U/L Alanine Aminotransferase (ALT/SGPT) 21 U/L 17 U/L Total Bilirubin 0.6 MG/DL 0.6 MG/DL Sodium Level 143 MEQ/L 143 MEQ/L Potassium Level 3.9 MEQ/L 3.5 MEQ/L Chloride Level 109 MEQ/L 109 MEQ/L Carbon Dioxide Level 23.7 MEQ/L 26.5 MEQ/L Anion Gap 10 MEQ/L 8 MEQ/L Estimat Glomerular Filtration Rate 54 ML/MIN 70 ML/MIN Assessment and Plan Problem List: (1) Paroxysmal atrial fibrillation with rapid ventricular response ICD Codes: I48.0 - Paroxysmal atrial fibrillation (2) Perforated diverticulum of small intestine ICD Codes: K57.00 - Diverticulitis of small intestine with perforation and abscess without bleeding Status: Acute (3) COPD with exacerbation ICD Codes: J44.1 - Chronic obstructive pulmonary disease with (acute) exacerbation Status: Acute (4) Peritonitis ICD Codes: K65.9 - Peritonitis, unspecified Assessment and Plan 1) Afib with RVR Converted to NSR with Amiodarone Blood pressure now better, previously hypotensive Placed on Cardizem PO Amiodarone drip stopped Will avoid Beta Blockers for now, concern for bronchospasm 2) EF 60-65%, stage 1 diastolic dysfunction 3) CHADSVASc=3 Discussed extensively with him and his family his risk of stroke vs bleeding and that his risk of stroke is higher than his risk of bleeding He would like to continue on ASA 81mg daily for anti-coagulation, understands that this proves little protection 4) If concerns over the weekend, please call covering physician Gregorio Uriostegui DO May 12, 2017 12:57
--- NOTE | 2017-05-12 14:49 | HHI.PR ---
Subjective Subjective Notes Feels better; pain controlled with oral meds Moving bowels Objective Vitals/I&O Vital Signs Date Time Temp Pulse Resp B/P (MAP) Pulse Ox O2 Delivery O2 Flow Rate FiO2 05/12/17 14:00 81 05/12/17 12:00 97.7 18 118/62 (80) 97 05/12/17 09:04 Nasal Cannula 3.00 05/10/17 07:54 21 Labs Laboratory Tests Test 05/11/17 20:44 05/12/17 04:24 White Blood Count 16.7 13.0 Red Blood Count 3.80 3.19 Hemoglobin 11.7 9.9 Hematocrit 35.2 29.7 Mean Corpuscular Volume 92.7 93.1 Mean Corpuscular Hemoglobin 30.8 30.9 Mean Corpuscular Hemoglobin Concent 33.2 33.2 Red Cell Distribution Width 13.3 13.4 Platelet Count 160 227 Mean Platelet Volume 7.8 7.4 Neutrophils (%) (Auto) 89.5 88.2 Lymphocytes (%) (Auto) 4.2 5.4 Monocytes (%) (Auto) 6.1 6.0 Eosinophils (%) (Auto) 0.1 0.3 Basophils (%) (Auto) 0.1 0.1 Neutrophils # (Auto) 15.0 11.5 Lymphocytes # (Auto) 0.7 0.7 Monocytes # (Auto) 1.0 0.8 Eosinophils # (Auto) 0.0 0.0 Basophils # (Auto) 0.0 0.0 CBC Comment AUTO DIFF DIFF FINAL Differential Comment AUTO DIFF CONFIRMED Blood Urea Nitrogen 23 22 Creatinine 1.27 1.01 Random Glucose 158 118 Total Protein 5.4 5.2 Albumin 2.0 1.9 Calcium Level 8.1 7.8 Phosphorus Level 1.5 Magnesium Level 1.9 Alkaline Phosphatase 61 65 Aspartate Amino Transf (AST/SGOT) 24 18 Alanine Aminotransferase (ALT/SGPT) 21 17 Total Bilirubin 0.6 0.6 Sodium Level 143 143 Potassium Level 3.9 3.5 Chloride Level 109 109 Carbon Dioxide Level 23.7 26.5 Anion Gap 10 8 Estimat Glomerular Filtration Rate 54 70 Date/Time Source Procedure Growth Status 05/05/17 14:14 Fluid Other Gram Stain - Final Complete 05/05/17 14:14 Body Fluid Culture - Final Klebsiella Pneumoniae Multi-Drug Resistant Complete Radiology Last 48 hours Impressions Abdomen X-Ray 05/05/17 1017 Signed Impressions: Service Date/Time: Friday, May 05, 2017 10:47 - CONCLUSION: 1. Pneumoperitoneum on the right side. Prashanth Mcintyre MD Abdomen/Pelvis CT 05/05/17 0917 Signed Impressions: Service Date/Time: Friday, May 05, 2017 12:15 - CONCLUSION: 1. Free intraperitoneal air likely from bowel perforation. Most likely location is at the splenic flexure where there is a 4 cm air-fluid level characteristic of an abscess. Differential diagnosis is localized diverticulitis or colitis. Tucker Rivera MD Abdomen: Non-distended, Post-op tenderness Narrative Exam Minimal drainage on bandage; wound intact with retention sutures A/P Problem List: (1) Respiratory failure ICD Codes: J96.90 - Respiratory failure, unspecified, unspecified whether with hypoxia or hypercapnia Status: Acute (2) Peritonitis ICD Codes: K65.9 - Peritonitis, unspecified (3) ART (acute kidney injury) ICD Codes: N17.9 - Acute kidney failure, unspecified (4) COPD with exacerbation ICD Codes: J44.1 - Chronic obstructive pulmonary disease with (acute) exacerbation Status: Acute (5) Perforated diverticulum of small intestine ICD Codes: K57.00 - Diverticulitis of small intestine with perforation and abscess without bleeding Status: Acute (6) Paroxysmal atrial fibrillation with rapid ventricular response ICD Codes: I48.0 - Paroxysmal atrial fibrillation Assessment and Plan A/P Assessment and Plan 86 year old male POD7 exp lap, resection of jejunum; POD2 placement of retention sutures due to wound dehiscence -Cardiology following---on PO Cardizem -Advance to regular diet -Abdominal binder -Monitor labs -D/C IV morphine -OOB as tolerated ---PT -Continue Zosyn -Transfer to floor with tele Rogelio Dang MD May 12, 2017 14:49
[2017-05-12] MEDS: ENOXAPARIN SODIUM 40 MG/0.4 ML SYRINGE SQ SCH (20:13)
[2017-05-12] MEDS: RESP: ALBUTEROL 2.5 MG/IPRATROPIUM 0.5 MG NEB (PRN) INH (20:41)
--- NOTE | 2017-05-12 23:24 | HHI.PR ---
Subjective Remarks Deferred entry - patient seen at 5:15 pm Pain controlled. Afebrile Stable vital signs Tolerating current diet. Objective Vitals Vital Signs Date Time Temp Pulse Resp B/P (MAP) Pulse Ox O2 Delivery O2 Flow Rate FiO2 05/12/17 22:00 82 05/12/17 20:44 93 21 05/12/17 20:00 84 05/12/17 20:00 98.0 90 20 144/67 (92) 93 05/12/17 18:00 84 05/12/17 16:00 98.2 92 16 138/79 (98) 93 05/12/17 16:00 88 05/12/17 14:00 81 05/12/17 12:00 84 05/12/17 12:00 97.7 84 18 118/62 (80) 97 05/12/17 10:00 88 05/12/17 09:04 95 Nasal Cannula 3.00 05/12/17 08:00 90 05/12/17 08:00 97.8 85 19 149/71 (97) 98 05/12/17 06:00 84 05/12/17 04:00 82 05/12/17 04:00 98.6 82 15 126/66 (86) 98 05/12/17 02:00 80 05/12/17 00:00 98.3 82 16 137/77 (97) 98 05/12/17 00:00 82 I/O 05/12/17 05/12/17 05/12/17 05/13/17 05/13/17 05/13/17 07:00 15:00 23:00 07:00 15:00 23:00 Intake Total 440 ml 1000 ml Output Total 490 ml 430 ml Balance -50 ml 570 ml Intake Oral 240 ml 350 ml IV Total 200 ml 650 ml Output Urine Total 450 ml 400 ml Drainage Total 40 ml 30 ml # Bowel Movements 0 2 Result Diagram: 05/12/17 0424 05/12/17 0424 Imaging Last Impressions Abdomen X-Ray 05/10/17 0000 Signed Impressions: Service Date/Time: Wednesday, May 10, 2017 12:03 - CONCLUSION: 1. Status post abdominal surgery. 2. Nonspecific gas pattern without significant ileus. 3. Left hip prosthesis. Antoine Valdivia MD Chest X-Ray 05/06/17 1532 Signed Impressions: Service Date/Time: Saturday, May 06, 2017 04:51 - CONCLUSION: Mild patchy infiltrate left medial lung base. Right lung clear. Lines and tubes as above. Mikhail Garcia MD Abdomen/Pelvis CT 05/05/17 0917 Signed Impressions: Service Date/Time: Friday, May 05, 2017 12:15 - CONCLUSION: 1. Free intraperitoneal air likely from bowel perforation. Most likely location is at the splenic flexure where there is a 4 cm air-fluid level characteristic of an abscess. Differential diagnosis is localized diverticulitis or colitis. Tucker Rivera MD Objective Remarks Head: Normal. Neck: Supple. Airway widely patent. Lungs: Clear, light wheezes persist but good bilateral air movement. Heart: NL S1S2, RRR. No JVD. Abdomen: Midline incision, clean dry dressing. Quiet. Extremities: Warm, well perfused. No edema. Neuro: Conversant, alert. KIM. Moves 4 limbs to command. Medications and IVs Current Medications Medications (Trade) Dose Ordered Sig/Alia Route Start Time Stop Time Status Last Admin (NS Flush) 2 ml UNSCH PRN IV FLUSH 05/05/17 09:30 05/12/17 20:13 (Duoneb Neb) 1 ampule Q2HR NEB PRN INH 05/05/17 13:15 05/12/17 20:41 Miscellaneous Information 1 Q361D XX 05/05/17 13:15 (Chlorhexidine 2% Cloth) Taper DAILY@04 TOP 05/06/17 04:00 05/02/18 03:59 05/10/17 04:00 (Chlorhexidine 2% Cloth) 3 pack UNSCH PRN TOP 05/05/17 13:15 (Zofran Inj) 4 mg Q6H PRN IV PUSH 05/05/17 15:45 (Narcan Inj) 0.4 mg UNSCH PRN IV PUSH 05/05/17 15:45 (Benadryl Inj) 25 mg Q6H PRN IV PUSH 05/05/17 15:45 05/10/17 02:18 (Peridex 0.12% Liq) 15 ml BID@08,20 MT 05/05/17 20:00 05/11/17 20:00 (Pepcid Inj) 10 mg Q12HR IV PUSH 05/06/17 09:00 05/12/17 20:13 (Cardizem) 30 mg Q6HR PO 05/08/17 13:00 05/13/17 00:03 Piperacillin Sod/ Tazobactam Sod 50 ml @ 100 mls/hr Q6H IV 05/11/17 16:00 05/12/17 20:13 (Lovenox Inj) 40 mg Q24H SQ 05/11/17 20:00 05/12/17 20:13 ([place] 7.5-325 Mg) 1 tab Q4H PRN PO 05/11/17 17:30 05/12/17 17:09 ([place] 7.5-325 Mg) 2 tab Q4H PRN PO 05/11/17 17:30 05/12/17 21:59 A/P Problem List: (1) Respiratory failure ICD Code: J96.90 - Respiratory failure, unspecified, unspecified whether with hypoxia or hypercapnia Status: Resolved (2) Peritonitis ICD Code: K65.9 - Peritonitis, unspecified (3) ART (acute kidney injury) ICD Code: N17.9 - Acute kidney failure, unspecified (4) COPD with exacerbation ICD Code: J44.1 - Chronic obstructive pulmonary disease with (acute) exacerbation Status: Acute (5) Perforated diverticulum of small intestine ICD Code: K57.00 - Diverticulitis of small intestine with perforation and abscess without bleeding Status: Acute (6) Paroxysmal atrial fibrillation with rapid ventricular response ICD Code: I48.0 - Paroxysmal atrial fibrillation (7) Wound dehiscence ICD Code: T81.30XA - Disruption of wound, unspecified, initial encounter Status: Resolved Assessment and Plan 1. Bronchodilators. 2. Zosyn. 3. Incentive spirometer. 5. Heparin dvt px. 6. Pepcid. 7. Mobilize. 8. Transfer. 9. Continue NG suction. 10. off amiodarone drip on cardizem po. meds as per cardiology. 11.sp K and Mag bolus. 12 Patient had wound dehiscence sp splattered laparotomy with washout and wound closure with retention sutures. 13. Patient will need rehab. Overall impression: S/P laparotomy for peritonitis, complicated by exacerbated COPD and paroxysmal atrial fibrillation. Bronchospasm resolved quickly and extubation accomplished 05/06. Gen Rosario MD May 12, 2017 23:24
[2017-05-13] VITALS (12 sets, daily range): BP systolic 145–151; BP diastolic 65–89; PULSE 69–88; RESP 13–18; TEMP 96.1–98.4; O2SAT 94–98
[2017-05-13] MEDS: DILTIAZEM HCL 30 MG TAB PO SCH ×5 (00:03→23:59)
[2017-05-13] MEDS: CHLORHEXIDINE GLUCONATE 2 % 1 PACK (2 CLOTHS) TOP SCH (04:00)
[2017-05-13] MEDS: PIPERACIL-TAZO 2.25 GM PREMIX 50 ML IV SCH ×4 (04:11→21:57)
[2017-05-13] MEDS: RESP: ALBUTEROL 2.5 MG/IPRATROPIUM 0.5 MG NEB (PRN) INH (04:32)
[2017-05-13] MEDS: CHLORHEXIDINE 0.12% (ORAL KIT) 15 ML CUP MT SCH ×2 (08:00→20:00)
[2017-05-13] MEDS: FAMOTIDINE 20 MG/2 ML VIAL IV PUSH SCH ×2 (08:58→20:08)
[2017-05-13] MEDS: ACETAMINOPHEN/HYDROcodone 325 MG/7.5 MG TAB PO PRN ×2 (11:46→16:48)
[2017-05-13 12:59] LABS: AUTOMATED NEUTROPHIL # 11.1 TH/MM3 (1.8-7.7); BASOPHIL % 0.2 % (0.0-2.0); EOSINOPHIL # 0.2 TH/MM3 (0-0.4); EOSINOPHIL % 1.8 % (0.0-4.0); HEMATOCRIT 32.2 % (39.0-51.0); LYMPHOCYTE # 0.6 TH/MM3 (1.0-4.8); MEAN CELL VOLUME 92.7 FL (80.0-100.0); MEAN CORPUSCULAR HEMOGLOBIN 31.6 PG (27.0-34.0); MEAN CORPUSCULAR HGB CONC 34.1 % (32.0-36.0); MEAN PLATELET VOLUME 7.2 FL (7.0-11.0); MONO % 6.8 % (0.0-8.0); MONOCYTE # 0.9 TH/MM3 (0-0.9); NEUT % 86.2 % (16.0-70.0); PLATELET COUNT 285 TH/MM3 (150-450); RED BLOOD COUNT 3.47 MIL/MM3 (4.50-5.90); RED CELL DISTRIBUTION WIDTH 13.4 % (11.6-17.2); WHITE BLOOD COUNT 12.9 TH/MM3 (4.0-11.0)
[2017-05-13 13:05] LABS: ALBUMIN 2.2 GM/DL (3.4-5.0); AST (GOT) 17 U/L (15-37); BICARBONATE 25.6 MEQ/L (21.0-32.0); BLOOD UREA NITROGEN 21 MG/DL (7-18); CALCIUM 8.1 MG/DL (8.5-10.1); CHLORIDE 107 MEQ/L (98-107); CREATININE 1.15 MG/DL (0.60-1.30); GLOMERULAR FILTRATION RATE 60 ML/MIN (>89); GLUCOSE,RANDOM 104 MG/DL (74-106); MAGNESIUM 1.5 MG/DL (1.5-2.5); SODIUM (NA) 141 MEQ/L (136-145)
[2017-05-13 13:06] LABS: ALT (GPT) 24 U/L (12-78); PHOSPHORUS 1.6 MG/DL (2.5-4.9)
[2017-05-13 13:08] LABS: ALKALINE PHOSPHATASE 61 U/L (45-117); TOTAL BILIRUBIN ADULT 0.4 MG/DL (0.2-1.0); TOTAL PROTEIN 5.6 GM/DL (6.4-8.2)
--- NOTE | 2017-05-13 16:30 | HHI.PR ---
Subjective Remarks c/o scrotal swelling and BL lower extremity edema. Afebrile. Denies cp, sob. Objective Vitals Vital Signs Date Time Temp Pulse Resp B/P (MAP) Pulse Ox O2 Delivery O2 Flow Rate FiO2 05/13/17 12:43 18 05/13/17 12:00 98.0 84 18 145/70 (95) 95 05/13/17 08:38 95 21 05/13/17 08:00 69 05/13/17 08:00 98.4 69 13 146/65 (92) 98 05/13/17 06:00 85 05/13/17 04:34 94 Nasal Cannula 1.00 05/13/17 04:00 75 05/13/17 04:00 97.4 75 14 145/71 (95) 95 05/13/17 02:00 77 05/13/17 00:00 97.1 75 18 150/67 (94) 94 05/13/17 00:00 75 05/12/17 22:00 82 05/12/17 20:44 93 21 05/12/17 20:00 84 05/12/17 20:00 98.0 90 20 144/67 (92) 93 05/12/17 18:00 84 I/O 05/12/17 05/12/17 05/12/17 05/13/17 05/13/17 05/13/17 07:00 15:00 23:00 07:00 15:00 23:00 Intake Total 440 ml 1000 ml 340 ml 100 ml Output Total 490 ml 430 ml 465 ml Balance -50 ml 570 ml -125 ml 100 ml Intake Oral 240 ml 350 ml 240 ml IV Total 200 ml 650 ml 100 ml 100 ml Output Urine Total 450 ml 400 ml 425 ml Drainage Total 40 ml 30 ml 40 ml # Bowel Movements 0 2 2 Result Diagram: 05/13/17 1209 05/13/17 1209 Imaging Last Impressions Abdomen X-Ray 05/10/17 0000 Signed Impressions: Service Date/Time: Wednesday, May 10, 2017 12:03 - CONCLUSION: 1. Status post abdominal surgery. 2. Nonspecific gas pattern without significant ileus. 3. Left hip prosthesis. Antoine Valdivia MD Chest X-Ray 05/06/17 1532 Signed Impressions: Service Date/Time: Saturday, May 06, 2017 04:51 - CONCLUSION: Mild patchy infiltrate left medial lung base. Right lung clear. Lines and tubes as above. Mikhail Garcia MD Abdomen/Pelvis CT 05/05/17 0917 Signed Impressions: Service Date/Time: Friday, May 05, 2017 12:15 - CONCLUSION: 1. Free intraperitoneal air likely from bowel perforation. Most likely location is at the splenic flexure where there is a 4 cm air-fluid level characteristic of an abscess. Differential diagnosis is localized diverticulitis or colitis. Tucker Rivera MD Objective Remarks Head: Normal. Neck: Supple. Airway widely patent. Lungs: Clear, light wheezes persist but good bilateral air movement. Heart: NL S1S2, RRR. No JVD. Abdomen: Midline incision, clean dry dressing. Quiet. Extremities: Warm, well perfused. +2 edema in bilateral extremities, bilateral foot blisters located at the level of the inner ankle in bilateral lower extremities. Neuro: Conversant, alert. KIM. Moves 4 limbs to command. Swollen scrotum. Procedures 1. Status post expiratory laparotomy and small bowel resection. 2. Status post exploratory laparotomy and closure of wound dehiscence. Medications and IVs Current Medications Medications (Trade) Dose Ordered Sig/Alia Route Start Time Stop Time Status Last Admin (NS Flush) 2 ml UNSCH PRN IV FLUSH 05/05/17 09:30 05/12/17 20:13 (Duoneb Neb) 1 ampule Q2HR NEB PRN INH 05/05/17 13:15 05/13/17 04:32 Miscellaneous Information 1 Q361D XX 05/05/17 13:15 (Chlorhexidine 2% Cloth) Taper DAILY@04 TOP 05/06/17 04:00 05/02/18 03:59 05/10/17 04:00 (Chlorhexidine 2% Cloth) 3 pack UNSCH PRN TOP 05/05/17 13:15 (Zofran Inj) 4 mg Q6H PRN IV PUSH 05/05/17 15:45 (Narcan Inj) 0.4 mg UNSCH PRN IV PUSH 05/05/17 15:45 (Benadryl Inj) 25 mg Q6H PRN IV PUSH 05/05/17 15:45 05/10/17 02:18 (Peridex 0.12% Liq) 15 ml BID@08,20 MT 05/05/17 20:00 05/13/17 08:00 (Pepcid Inj) 10 mg Q12HR IV PUSH 05/06/17 09:00 05/13/17 08:58 (Cardizem) 30 mg Q6HR PO 05/08/17 13:00 05/13/17 11:46 Piperacillin Sod/ Tazobactam Sod 50 ml @ 100 mls/hr Q6H IV 05/11/17 16:00 05/13/17 11:57 (Lovenox Inj) 40 mg Q24H SQ 05/11/17 20:00 05/12/17 20:13 ([place] 7.5-325 Mg) 1 tab Q4H PRN PO 05/11/17 17:30 05/13/17 11:46 ([place] 7.5-325 Mg) 2 tab Q4H PRN PO 05/11/17 17:30 05/12/17 21:59 A/P Problem List: (1) Sepsis ICD Code: A41.9 - Sepsis, unspecified organism Plan: Present on admission. The patient with leukocytosis and increased heart rate more than 90. Likely secondary to peritonitis and aspiration pneumonia. Sepsis syndrome is clinically resolving with improved heart rate and downtrending leukocytosis. WBC today 12.9. Continue IV Zosyn and continue to monitor vital signs and trend WBCs. (2) Respiratory failure ICD Code: J96.90 - Respiratory failure, unspecified, unspecified whether with hypoxia or hypercapnia Status: Resolved Plan: Due to likely aspiration pneumonia with mild patchy infiltrate on the left medial lung base on chest x-ray obtained on 05/06/17. Patient on IV Zosyn, continue Supplemental O2. Bronchodilator therapy. (3) Peritonitis ICD Code: K65.9 - Peritonitis, unspecified Plan: Abdomen pelvis CT showed free intraperitoneal air likely from bowel perforation. Surgery consulted. Patient status post surgery laparotomy with bowel resection and days later expiratory laparotomy with wound dehiscence closure. Continue pain control as per general surgery. Management as per general surgery. (4) ART (acute kidney injury) ICD Code: N17.9 - Acute kidney failure, unspecified Plan: Creatinine on admission 1.39. Acute kidney injury likely due to prerenal azotemia from dehydration. (5) COPD with exacerbation ICD Code: J44.1 - Chronic obstructive pulmonary disease with (acute) exacerbation Status: Acute Plan: Treated with bronchodilator therapy. As per medical records there is no evidence that the patient was administered steroids. (6) Perforated diverticulum of small intestine ICD Code: K57.00 - Diverticulitis of small intestine with perforation and abscess without bleeding Status: Resolved Plan: As above. (7) Paroxysmal atrial fibrillation with rapid ventricular response ICD Code: I48.0 - Paroxysmal atrial fibrillation Plan: Cardiology consulted. The patient initially started on amiodarone drip and diltiazem. Off amiodarone drip. Heart rate back to normal sinus rhythm controlled on Cardizem p.o. (8) Wound dehiscence ICD Code: T81.30XA - Disruption of wound, unspecified, initial encounter Status: Resolved (9) Anasarca ICD Code: R60.1 - Generalized edema Plan: Patient has a total fluid balance of +4105 mL's. The patient also has gained several pounds patient also went from 85 kg to 92.6. I will has scrotal edema and +2 lower extremity edema with fluid blisters. I will start the patient IV Lasix 40 mg IV twice daily, strict I's and O's need to be measured and accurately recorded, check daily weights. (10) Hypophosphatemia ICD Code: E83.39 - Other disorders of phosphorus metabolism Plan: Due to decreased oral intake. Start the patient on Neutra-Phos. Continue to monitor phosphorus levels. Assessment and Plan GI prophylaxis: On PPI. DVT prophylaxis: SCDs, Lovenox of cutaneously. Overall impression: S/P laparotomy for peritonitis, complicated by exacerbated COPD and paroxysmal atrial fibrillation. Bronchospasm resolved quickly and extubation accomplished 05/06. Discharge Planning Continue to monitor on the medical floor. Discharge pending improvement of anasarca and general surgery clearance. Gen Rosario MD May 13, 2017 16:30
[2017-05-13] MEDS: FUROSEMIDE 40 MG/4 ML VIAL IV PUSH SCH (16:40)
[2017-05-13] MEDS ORDERED: FUROSEMIDE 40 MG TAB PO SCH (18:00)
--- NOTE | 2017-05-13 19:23 | HHI.PR ---
cc: Tucker Alcantar MD Subjective Subjective Notes DAILY PROGRESS NOTE FOR SURGICAL ATTENDING, DR. TUCKER ALCANTAR Doing well Sitting up in chair Tolerating regular diet Having a bowel movement Wants to know when he can go to rehabilitation Objective Vitals/I&O Vital Signs Date Time Temp Pulse Resp B/P (MAP) Pulse Ox O2 Delivery O2 Flow Rate FiO2 05/13/17 16:00 96.4 81 17 148/77 (100) 96 05/13/17 08:38 21 05/13/17 04:34 Nasal Cannula 1.00 Labs Laboratory Tests Test 05/13/17 12:09 White Blood Count 12.9 Red Blood Count 3.47 Hemoglobin 11.0 Hematocrit 32.2 Mean Corpuscular Volume 92.7 Mean Corpuscular Hemoglobin 31.6 Mean Corpuscular Hemoglobin Concent 34.1 Red Cell Distribution Width 13.4 Platelet Count 285 Mean Platelet Volume 7.2 Neutrophils (%) (Auto) 86.2 Lymphocytes (%) (Auto) 5.0 Monocytes (%) (Auto) 6.8 Eosinophils (%) (Auto) 1.8 Basophils (%) (Auto) 0.2 Neutrophils # (Auto) 11.1 Lymphocytes # (Auto) 0.6 Monocytes # (Auto) 0.9 Eosinophils # (Auto) 0.2 Basophils # (Auto) 0.0 CBC Comment DIFF FINAL Differential Comment Blood Urea Nitrogen 21 Creatinine 1.15 Random Glucose 104 Total Protein 5.6 Albumin 2.2 Calcium Level 8.1 Phosphorus Level 1.6 Magnesium Level 1.5 Alkaline Phosphatase 61 Aspartate Amino Transf (AST/SGOT) 17 Alanine Aminotransferase (ALT/SGPT) 24 Total Bilirubin 0.4 Sodium Level 141 Potassium Level 3.5 Chloride Level 107 Carbon Dioxide Level 25.6 Anion Gap 8 Estimat Glomerular Filtration Rate 60 Date/Time Source Procedure Growth Status 05/05/17 14:14 Fluid Other Gram Stain - Final Complete 05/05/17 14:14 Body Fluid Culture - Final Klebsiella Pneumoniae Multi-Drug Resistant Complete Radiology Last 48 hours Impressions Abdomen X-Ray 05/05/17 1017 Signed Impressions: Service Date/Time: Friday, May 05, 2017 10:47 - CONCLUSION: 1. Pneumoperitoneum on the right side. Prashanth Mcintyre MD Abdomen/Pelvis CT 05/05/17 0917 Signed Impressions: Service Date/Time: Friday, May 05, 2017 12:15 - CONCLUSION: 1. Free intraperitoneal air likely from bowel perforation. Most likely location is at the splenic flexure where there is a 4 cm air-fluid level characteristic of an abscess. Differential diagnosis is localized diverticulitis or colitis. Tucker Rivera MD Cardiovascular: Regular Lungs: Clear Abdomen: Post-op tenderness Extremities: Perfused Narrative Exam Swollen scrotum A/P Problem List: (1) Respiratory failure ICD Codes: J96.90 - Respiratory failure, unspecified, unspecified whether with hypoxia or hypercapnia Status: Resolved (2) Peritonitis ICD Codes: K65.9 - Peritonitis, unspecified (3) ART (acute kidney injury) ICD Codes: N17.9 - Acute kidney failure, unspecified (4) COPD with exacerbation ICD Codes: J44.1 - Chronic obstructive pulmonary disease with (acute) exacerbation Status: Acute (5) Perforated diverticulum of small intestine ICD Codes: K57.00 - Diverticulitis of small intestine with perforation and abscess without bleeding Status: Resolved (6) Paroxysmal atrial fibrillation with rapid ventricular response ICD Codes: I48.0 - Paroxysmal atrial fibrillation Assessment and Plan Josh higgins underwent surgery for perforated jejunum and then had a wound dehiscence Seems to be progressing nicely tolerating diet regular diet Anticipate discharge to rehabilitation sometime next week Attending Statement NOTE FOR SURGICAL ATTENDING, DR. TUCKER ALCANTAR I attest that I had a [id number] encounter with the patient on the same day, and personally performed and documented my assessment and findings in the medical record. The following services were provided during this hospital visit: Chart data review, vital sign assessments/reviewing monitor data Review of consultations notes if present. Medication orders/review and/or management Ordering and/or reviewing lab tests Ordering and/or interpreting/reviewing x-rays and/or diagnostic studies Care of the patient and discussion of the patient with the care team Documentation time To help prompt me to consider important information that might be impacting today's encounter and assessment, information from prior notes written by myself or my colleagues may have been "brought forward/copy and pasted" into today's note. Tucker Alcantar MD May 13, 2017 19:23
[2017-05-13] MEDS: ENOXAPARIN SODIUM 40 MG/0.4 ML SYRINGE SQ SCH (20:05)
[2017-05-14] VITALS (8 sets, daily range): BP systolic 112–150; BP diastolic 62–82; PULSE 74–102; RESP 14–17; TEMP 96.7–98.1; O2SAT 93–99
[2017-05-14] MEDS: PIPERACIL-TAZO 2.25 GM PREMIX 50 ML IV SCH ×4 (03:43→21:11)
[2017-05-14] MEDS: CHLORHEXIDINE GLUCONATE 2 % 1 PACK (2 CLOTHS) TOP SCH (04:00)
[2017-05-14] MEDS: DILTIAZEM HCL 30 MG TAB PO SCH ×4 (04:42→23:56)
[2017-05-14 07:02] LABS: AUTOMATED NEUTROPHIL # 8.1 TH/MM3 (1.8-7.7); BASOPHIL % 0.3 % (0.0-2.0); EOSINOPHIL # 0.3 TH/MM3 (0-0.4); EOSINOPHIL % 2.6 % (0.0-4.0); HEMATOCRIT 30.8 % (39.0-51.0); HEMOGLOBIN 10.7 GM/DL (13.0-17.0); LYMPH % 7.5 % (9.0-44.0); LYMPHOCYTE # 0.7 TH/MM3 (1.0-4.8); MEAN CORPUSCULAR HEMOGLOBIN 31.9 PG (27.0-34.0); MEAN CORPUSCULAR HGB CONC 34.7 % (32.0-36.0); MEAN PLATELET VOLUME 7.4 FL (7.0-11.0); MONO % 6.6 % (0.0-8.0); MONOCYTE # 0.6 TH/MM3 (0-0.9); PLATELET COUNT 238 TH/MM3 (150-450); RED BLOOD COUNT 3.35 MIL/MM3 (4.50-5.90); RED CELL DISTRIBUTION WIDTH 13.6 % (11.6-17.2); WHITE BLOOD COUNT 9.8 TH/MM3 (4.0-11.0)
[2017-05-14 07:24] LABS: AST (GOT) 21 U/L (15-37); BICARBONATE 26.6 MEQ/L (21.0-32.0); BLOOD UREA NITROGEN 19 MG/DL (7-18); CALCIUM 7.8 MG/DL (8.5-10.1); CHLORIDE 101 MEQ/L (98-107); CREATININE 1.09 MG/DL (0.60-1.30); GLOMERULAR FILTRATION RATE 64 ML/MIN (>89); GLUCOSE,RANDOM 84 MG/DL (74-106); SODIUM (NA) 137 MEQ/L (136-145)
[2017-05-14 07:25] LABS: ALT (GPT) 24 U/L (12-78)
[2017-05-14 07:27] LABS: ALKALINE PHOSPHATASE 58 U/L (45-117); TOTAL BILIRUBIN ADULT 0.5 MG/DL (0.2-1.0); TOTAL PROTEIN 5.2 GM/DL (6.4-8.2)
[2017-05-14] MEDS: CHLORHEXIDINE 0.12% (ORAL KIT) 15 ML CUP MT SCH ×2 (08:00→20:00)
[2017-05-14] MEDS: FAMOTIDINE 20 MG/2 ML VIAL IV PUSH SCH ×2 (08:38→19:59)
[2017-05-14] MEDS: FUROSEMIDE 40 MG/4 ML VIAL IV PUSH SCH ×2 (08:39→18:03)
[2017-05-14] MEDS ORDERED: POTASSIUM CHLORIDE 10 MEQ CONTROLLED RELEASE TAB PO ONE (09:30)
[2017-05-14] MEDS: ACETAMINOPHEN/HYDROcodone 325 MG/7.5 MG TAB PO PRN (11:18)
--- NOTE | 2017-05-14 13:13 | HHI.PR ---
Subjective Remarks c/o scrotal edema, BL lower extremity edema and blisters Denies cp/sob Denies abdominal pain, nausea or vomiting. tolerating diet Objective Vitals Vital Signs Date Time Temp Pulse Resp B/P (MAP) Pulse Ox O2 Delivery O2 Flow Rate FiO2 05/14/17 12:00 97.6 86 16 133/79 (97) 96 05/14/17 08:00 96.7 102 17 112/72 (85) 98 05/14/17 04:00 96.9 80 17 150/80 (103) 99 05/14/17 00:00 96.7 82 17 150/82 (104) 93 05/13/17 23:30 85 05/13/17 20:15 85 05/13/17 20:00 96.1 88 17 151/89 (109) 94 05/13/17 16:00 96.4 81 17 148/77 (100) 96 I/O 05/13/17 05/13/17 05/13/17 05/14/17 05/14/17 05/14/17 07:00 15:00 23:00 07:00 15:00 23:00 Intake Total 340 ml 100 ml 580 ml 290 ml Output Total 465 ml 600 ml 3060 ml Balance -125 ml 100 ml -20 ml -2770 ml Intake Oral 240 ml 480 ml 240 ml IV Total 100 ml 100 ml 100 ml 50 ml Output Urine Total 425 ml 600 ml 3000 ml Drainage Total 40 ml 60 ml # Bowel Movements 2 0 1 Result Diagram: 05/14/17 0617 05/14/17 0617 Imaging Last Impressions Abdomen X-Ray 05/10/17 0000 Signed Impressions: Service Date/Time: Wednesday, May 10, 2017 12:03 - CONCLUSION: 1. Status post abdominal surgery. 2. Nonspecific gas pattern without significant ileus. 3. Left hip prosthesis. Antoine Valdivia MD Chest X-Ray 05/06/17 1532 Signed Impressions: Service Date/Time: Saturday, May 06, 2017 04:51 - CONCLUSION: Mild patchy infiltrate left medial lung base. Right lung clear. Lines and tubes as above. Mikhail Garcia MD Abdomen/Pelvis CT 05/05/17 0917 Signed Impressions: Service Date/Time: Friday, May 05, 2017 12:15 - CONCLUSION: 1. Free intraperitoneal air likely from bowel perforation. Most likely location is at the splenic flexure where there is a 4 cm air-fluid level characteristic of an abscess. Differential diagnosis is localized diverticulitis or colitis. Tucker Rivera MD Objective Remarks Head: Normal. Neck: Supple. Airway widely patent. Lungs: Clear, light wheezes persist but good bilateral air movement. Heart: NL S1S2, RRR. No JVD. Abdomen: Midline incision, clean dry dressing. Quiet. Extremities: Warm, well perfused. +2 edema in bilateral extremities, bilateral foot blisters located at the level of the inner ankle in bilateral lower extremities. Neuro: Conversant, alert. KIM. Moves 4 limbs to command. Swollen scrotum. Procedures 1. Status post expiratory laparotomy and small bowel resection. 2. Status post exploratory laparotomy and closure of wound dehiscence. Medications and IVs Current Medications Medications (Trade) Dose Ordered Sig/Alia Route Start Time Stop Time Status Last Admin (NS Flush) 2 ml UNSCH PRN IV FLUSH 05/05/17 09:30 05/12/17 20:13 (Duoneb Neb) 1 ampule Q2HR NEB PRN INH 05/05/17 13:15 05/13/17 04:32 Miscellaneous Information 1 Q361D XX 05/05/17 13:15 (Chlorhexidine 2% Cloth) Taper DAILY@04 TOP 05/06/17 04:00 05/02/18 03:59 05/10/17 04:00 (Chlorhexidine 2% Cloth) 3 pack UNSCH PRN TOP 05/05/17 13:15 (Zofran Inj) 4 mg Q6H PRN IV PUSH 05/05/17 15:45 (Narcan Inj) 0.4 mg UNSCH PRN IV PUSH 05/05/17 15:45 (Benadryl Inj) 25 mg Q6H PRN IV PUSH 05/05/17 15:45 05/10/17 02:18 (Peridex 0.12% Liq) 15 ml BID@08,20 MT 05/05/17 20:00 05/13/17 08:00 (Pepcid Inj) 10 mg Q12HR IV PUSH 05/06/17 09:00 05/14/17 08:38 (Cardizem) 30 mg Q6HR PO 05/08/17 13:00 05/14/17 11:17 Piperacillin Sod/ Tazobactam Sod 50 ml @ 100 mls/hr Q6H IV 05/11/17 16:00 05/14/17 11:17 (Lovenox Inj) 40 mg Q24H SQ 05/11/17 20:00 05/13/17 20:05 ([place] 7.5-325 Mg) 1 tab Q4H PRN PO 05/11/17 17:30 05/13/17 11:46 ([place] 7.5-325 Mg) 2 tab Q4H PRN PO 05/11/17 17:30 05/14/17 11:18 (Lasix Inj) 40 mg BID@,18 IV PUSH 05/13/17 18:00 05/14/17 08:39 Potassium Chloride 100 ml @ 50 mls/hr Q2H IV 05/14/17 13:15 05/14/17 17:14 UNV Urinary Catheter: No Vascular Central Line Catheter: No A/P Problem List: (1) Sepsis ICD Code: A41.9 - Sepsis, unspecified organism (2) Respiratory failure ICD Code: J96.90 - Respiratory failure, unspecified, unspecified whether with hypoxia or hypercapnia Status: Resolved (3) Peritonitis ICD Code: K65.9 - Peritonitis, unspecified (4) ART (acute kidney injury) ICD Code: N17.9 - Acute kidney failure, unspecified (5) COPD with exacerbation ICD Code: J44.1 - Chronic obstructive pulmonary disease with (acute) exacerbation Status: Acute (6) Perforated diverticulum of small intestine ICD Code: K57.00 - Diverticulitis of small intestine with perforation and abscess without bleeding Status: Resolved (7) Paroxysmal atrial fibrillation with rapid ventricular response ICD Code: I48.0 - Paroxysmal atrial fibrillation (8) Wound dehiscence ICD Code: T81.30XA - Disruption of wound, unspecified, initial encounter Status: Resolved (9) Anasarca ICD Code: R60.1 - Generalized edema (10) Hypophosphatemia ICD Code: E83.39 - Other disorders of phosphorus metabolism Assessment and Plan (1) Sepsis ICD Code: A41.9 - Sepsis, unspecified organism Plan: Present on admission. The patient with leukocytosis and increased heart rate more than 90. Likely secondary to peritonitis and aspiration pneumonia. Sepsis syndrome is clinically resolving with improved heart rate and downtrending leukocytosis. WBC today 12.9. Continue IV Zosyn and continue to monitor vital signs and trend WBCs. (2) Respiratory failure ICD Code: J96.90 - Respiratory failure, unspecified, unspecified whether with hypoxia or hypercapnia Status: Resolved Plan: Due to likely aspiration pneumonia with mild patchy infiltrate on the left medial lung base on chest x-ray obtained on 05/06/17. Patient on IV Zosyn, continue Supplemental O2. Bronchodilator therapy. (3) Peritonitis ICD Code: K65.9 - Peritonitis, unspecified Plan: Abdomen pelvis CT showed free intraperitoneal air likely from bowel perforation. Surgery consulted. Patient status post surgery laparotomy with bowel resection and days later expiratory laparotomy with wound dehiscence closure. Continue pain control as per general surgery. Management as per general surgery. (4) ART (acute kidney injury) ICD Code: N17.9 - Acute kidney failure, unspecified Plan: Creatinine on admission 1.39. Acute kidney injury likely due to prerenal azotemia from dehydration. (5) COPD with exacerbation ICD Code: J44.1 - Chronic obstructive pulmonary disease with (acute) exacerbation Status: Acute Plan: Treated with bronchodilator therapy. As per medical records there is no evidence that the patient was administered steroids. (6) Perforated diverticulum of small intestine ICD Code: K57.00 - Diverticulitis of small intestine with perforation and abscess without bleeding Status: Resolved Plan: As above. (7) Paroxysmal atrial fibrillation with rapid ventricular response ICD Code: I48.0 - Paroxysmal atrial fibrillation Plan: Cardiology consulted. The patient initially started on amiodarone drip and diltiazem. Off amiodarone drip. Heart rate back to normal sinus rhythm controlled on Cardizem p.o. (8) Wound dehiscence ICD Code: T81.30XA - Disruption of wound, unspecified, initial encounter Status: Resolved (9) Anasarca ICD Code: R60.1 - Generalized edema Plan: Patient has a total fluid balance of +4105 mL's. The patient also has gained several pounds patient also went from 85 kg to 92.6. Scrotal edema and +2 lower extremity edema with fluid blisters. Continue IV Lasix 40 mg IV BID, strict I's and O's need to be measured and accurately recorded, check daily weights. (10) Hypophosphatemia ICD Code: E83.39 - Other disorders of phosphorus metabolism Plan: Due to decreased oral intake. On Neutraphos - phosphorus levels slowly trending up Continue to monitor phosphorus levels. GI prophylaxis: On PPI. DVT prophylaxis: SCDs, Lovenox of cutaneously. Overall impression: S/P laparotomy for peritonitis, complicated by exacerbated COPD and paroxysmal atrial fibrillation. Bronchospasm resolved quickly and extubation accomplished 05/06. Discharge Planning Continue to monitor on the medical floor. Discharge pending improvement of anasarca and general surgery clearance. Gen Rosario MD May 14, 2017 13:13
--- NOTE | 2017-05-14 15:31 | HHI.PR ---
Subjective Subjective Notes Patient tolerating regular diet Slid down in chair to floor. Objective Vitals/I&O Vital Signs Date Time Temp Pulse Resp B/P (MAP) Pulse Ox O2 Delivery O2 Flow Rate FiO2 05/14/17 12:00 97.6 86 16 133/79 (97) 96 05/13/17 08:38 21 05/13/17 04:34 Nasal Cannula 1.00 Labs Laboratory Tests Test 05/14/17 06:17 White Blood Count 9.8 Red Blood Count 3.35 Hemoglobin 10.7 Hematocrit 30.8 Mean Corpuscular Volume 92.0 Mean Corpuscular Hemoglobin 31.9 Mean Corpuscular Hemoglobin Concent 34.7 Red Cell Distribution Width 13.6 Platelet Count 238 Mean Platelet Volume 7.4 Neutrophils (%) (Auto) 83.0 Lymphocytes (%) (Auto) 7.5 Monocytes (%) (Auto) 6.6 Eosinophils (%) (Auto) 2.6 Basophils (%) (Auto) 0.3 Neutrophils # (Auto) 8.1 Lymphocytes # (Auto) 0.7 Monocytes # (Auto) 0.6 Eosinophils # (Auto) 0.3 Basophils # (Auto) 0.0 CBC Comment DIFF FINAL Differential Comment Blood Urea Nitrogen 19 Creatinine 1.09 Random Glucose 84 Total Protein 5.2 Albumin 2.0 Calcium Level 7.8 Alkaline Phosphatase 58 Aspartate Amino Transf (AST/SGOT) 21 Alanine Aminotransferase (ALT/SGPT) 24 Total Bilirubin 0.5 Sodium Level 137 Potassium Level 3.3 Chloride Level 101 Carbon Dioxide Level 26.6 Anion Gap 9 Estimat Glomerular Filtration Rate 64 Date/Time Source Procedure Growth Status 05/05/17 14:14 Fluid Other Gram Stain - Final Complete 05/05/17 14:14 Body Fluid Culture - Final Klebsiella Pneumoniae Multi-Drug Resistant Complete Radiology Last 48 hours Impressions Abdomen X-Ray 05/05/17 1017 Signed Impressions: Service Date/Time: Friday, May 05, 2017 10:47 - CONCLUSION: 1. Pneumoperitoneum on the right side. Prashanth Mcintyre MD Abdomen/Pelvis CT 05/05/17 0915 Signed Impressions: Service Date/Time: Friday, May 05, 2017 12:15 - CONCLUSION: 1. Free intraperitoneal air likely from bowel perforation. Most likely location is at the splenic flexure where there is a 4 cm air-fluid level characteristic of an abscess. Differential diagnosis is localized diverticulitis or colitis. Tucker Rivera MD Lungs: Clear Abdomen: Non-distended Narrative Exam Blistering of skin at edges of retention sutures; wound intact with retention sutures Blisters on ankles from SCD's; they were removed yesterday A/P Problem List: (1) Respiratory failure ICD Codes: J96.90 - Respiratory failure, unspecified, unspecified whether with hypoxia or hypercapnia Status: Resolved (2) Peritonitis ICD Codes: K65.9 - Peritonitis, unspecified (3) ART (acute kidney injury) ICD Codes: N17.9 - Acute kidney failure, unspecified (4) COPD with exacerbation ICD Codes: J44.1 - Chronic obstructive pulmonary disease with (acute) exacerbation Status: Acute (5) Perforated diverticulum of small intestine ICD Codes: K57.00 - Diverticulitis of small intestine with perforation and abscess without bleeding Status: Resolved (6) Paroxysmal atrial fibrillation with rapid ventricular response ICD Codes: I48.0 - Paroxysmal atrial fibrillation (7) Hypokalemia due to loss of potassium ICD Codes: E87.6 - Hypokalemia Assessment and Plan Problem List: (1) Respiratory failure ICD Codes: J96.90 - Respiratory failure, unspecified, unspecified whether with hypoxia or hypercapnia Status: Resolved (2) Peritonitis ICD Codes: K65.9 - Peritonitis, unspecified (3) ART (acute kidney injury) ICD Codes: N17.9 - Acute kidney failure, unspecified (4) COPD with exacerbation ICD Codes: J44.1 - Chronic obstructive pulmonary disease with (acute) exacerbation Status: Acute (5) Perforated diverticulum of small intestine ICD Codes: K57.00 - Diverticulitis of small intestine with perforation and abscess without bleeding Status: Resolved (6) Paroxysmal atrial fibrillation with rapid ventricular response ICD Codes: I48.0 - Paroxysmal atrial fibrillation Assessment and Plan Josh gentleman underwent surgery for perforated jejunum and then had a wound dehiscence POD #8/3 Seems to be progressing nicely tolerating diet regular diet Anticipate discharge to rehabilitation sometime next week Blisters on ankles from SCD's Hypokalemic - supplements given today Will give lasix tomorrow if K+ in normal range to help scrotal edema Discharge Planning Rehab Rogelio Dang MD May 14, 2017 15:31
[2017-05-14] MEDS: POTASSIUM CHLOR 20 MEQ PREMIX 100 ML IV SCH ×2 (15:41→18:03)
[2017-05-14] MEDS: ENOXAPARIN SODIUM 40 MG/0.4 ML SYRINGE SQ SCH (20:00)
[2017-05-15] VITALS (8 sets, daily range): BP systolic 105–152; BP diastolic 65–76; PULSE 72–94; RESP 14–19; TEMP 97.3–98.4; O2SAT 92–97
[2017-05-15] MEDS: PIPERACIL-TAZO 2.25 GM PREMIX 50 ML IV SCH ×4 (03:41→20:25)
[2017-05-15] MEDS: CHLORHEXIDINE GLUCONATE 2 % 1 PACK (2 CLOTHS) TOP SCH (04:00)
[2017-05-15] MEDS: DILTIAZEM HCL 30 MG TAB PO SCH ×3 (04:41→18:09)
[2017-05-15] MEDS: CHLORHEXIDINE 0.12% (ORAL KIT) 15 ML CUP MT SCH ×2 (08:00→20:00)
[2017-05-15] MEDS: FUROSEMIDE 40 MG/4 ML VIAL IV PUSH SCH (08:49)
[2017-05-15] MEDS: FAMOTIDINE 20 MG/2 ML VIAL IV PUSH SCH ×2 (08:49→20:24)
[2017-05-15 09:04] LABS: AUTOMATED NEUTROPHIL # 7.7 TH/MM3 (1.8-7.7); BASOPHIL % 0.5 % (0.0-2.0); EOSINOPHIL # 0.3 TH/MM3 (0-0.4); HEMATOCRIT 30.5 % (39.0-51.0); HEMOGLOBIN 10.4 GM/DL (13.0-17.0); LYMPH % 10.3 % (9.0-44.0); MEAN CELL VOLUME 91.3 FL (80.0-100.0); MEAN CORPUSCULAR HEMOGLOBIN 31.3 PG (27.0-34.0); MEAN CORPUSCULAR HGB CONC 34.2 % (32.0-36.0); MEAN PLATELET VOLUME 7.2 FL (7.0-11.0); MONO % 5.9 % (0.0-8.0); MONOCYTE # 0.6 TH/MM3 (0-0.9); NEUT % 80.3 % (16.0-70.0); PLATELET COUNT 263 TH/MM3 (150-450); RED BLOOD COUNT 3.34 MIL/MM3 (4.50-5.90); RED CELL DISTRIBUTION WIDTH 13.6 % (11.6-17.2); WHITE BLOOD COUNT 9.5 TH/MM3 (4.0-11.0)
[2017-05-15 09:56] LABS: BICARBONATE 29.3 MEQ/L (21.0-32.0); CREATININE 1.38 MG/DL (0.60-1.30); MAGNESIUM 1.4 MG/DL (1.5-2.5); PHOSPHORUS 2.7 MG/DL (2.5-4.9)
--- NOTE | 2017-05-15 11:40 | PD.CARD.PN ---
Subjective Subjective Remarks Doing well, up to the chair Scrotal/lower extremity edema better per the patient Telemetry showing NSR Objective Medications Current Medications Medications (Trade) Dose Ordered Sig/Alia Route Start Time Stop Time Status Last Admin (NS Flush) 2 ml UNSCH PRN IV FLUSH 05/05/17 09:30 05/12/17 20:13 (Duoneb Neb) 1 ampule Q2HR NEB PRN INH 05/05/17 13:15 05/13/17 04:32 Miscellaneous Information 1 Q361D XX 05/05/17 13:15 (Chlorhexidine 2% Cloth) Taper DAILY@04 TOP 05/06/17 04:00 05/02/18 03:59 05/10/17 04:00 (Chlorhexidine 2% Cloth) 3 pack UNSCH PRN TOP 05/05/17 13:15 (Zofran Inj) 4 mg Q6H PRN IV PUSH 05/05/17 15:45 (Narcan Inj) 0.4 mg UNSCH PRN IV PUSH 05/05/17 15:45 (Benadryl Inj) 25 mg Q6H PRN IV PUSH 05/05/17 15:45 05/10/17 02:18 (Peridex 0.12% Liq) 15 ml BID@08,20 MT 05/05/17 20:00 05/13/17 08:00 (Pepcid Inj) 10 mg Q12HR IV PUSH 05/06/17 09:00 05/15/17 08:49 (Cardizem) 30 mg Q6HR PO 05/08/17 13:00 05/15/17 04:41 Piperacillin Sod/ Tazobactam Sod 50 ml @ 100 mls/hr Q6H IV 05/11/17 16:00 05/15/17 10:38 (Lovenox Inj) 40 mg Q24H SQ 05/11/17 20:00 05/14/17 20:00 (Stewart 7.5-325 Mg) 1 tab Q4H PRN PO 05/11/17 17:30 05/13/17 11:46 (Stewart 7.5-325 Mg) 2 tab Q4H PRN PO 05/11/17 17:30 05/14/17 11:18 (Lasix Inj) 40 mg BID@ IV PUSH 05/13/17 18:00 05/15/17 08:49 Vital Signs / I&O Vital Signs Date Time Temp Pulse Resp B/P (MAP) Pulse Ox O2 Delivery O2 Flow Rate FiO2 05/15/17 08:00 98.4 77 19 145/76 (99) 96 05/15/17 04:02 73 05/15/17 04:00 97.7 75 14 150/65 (93) 96 05/15/17 00:00 97.9 72 14 152/65 (94) 92 05/14/17 23:59 80 05/14/17 20:00 77 05/14/17 20:00 98.1 74 14 150/62 (91) 95 05/14/17 16:00 97.4 82 16 141/78 (99) 93 05/14/17 14:30 98.1 100 17 138/73 (94) 98 05/14/17 12:00 97.6 86 16 133/79 (97) 96 I/O 05/14/17 05/14/17 05/14/17 05/15/17 05/15/17 05/15/17 07:00 15:00 23:00 07:00 15:00 23:00 Intake Total 290 ml 1070 ml 150 ml Output Total 3060 ml 1620 ml 3500 ml Balance -2770 ml -550 ml -3350 ml Intake Oral 240 ml 720 ml 100 ml IV Total 50 ml 350 ml 50 ml Output Urine Total 3000 ml 1600 ml 3500 ml Drainage Total 60 ml 20 ml # Bowel Movements 1 3 0 Physical Exam GENERAL: NAD, AAOx3 SKIN: Warm and dry. HEAD: Atraumatic. Normocephalic. EYES: Pupils equal and round. No scleral icterus. No injection or drainage. ENT: No nasal bleeding or discharge. Mucous membranes pink and moist. NECK: Trachea midline. No JVD. CARDIOVASCULAR: Regular rate and rhythm. RESPIRATORY: No accessory muscle use. Clear to auscultation. Breath sounds equal bilaterally. GASTROINTESTINAL: Abdomen soft, non-tender, nondistended. Hepatic and splenic margins not palpable. Dressing clean/dry MUSCULOSKELETAL: Extremities without clubbing, cyanosis, or edema. No obvious deformities. NEUROLOGICAL: Awake and alert. No obvious cranial nerve deficits. Motor grossly within normal limits. Five out of 5 muscle strength in the arms and legs. Normal speech. PSYCHIATRIC: Appropriate mood and affect; insight and judgment normal. Laboratory Laboratory Tests Test 05/15/17 07:37 White Blood Count 9.5 TH/MM3 Red Blood Count 3.34 MIL/MM3 Hemoglobin 10.4 GM/DL Hematocrit 30.5 % Mean Corpuscular Volume 91.3 FL Mean Corpuscular Hemoglobin 31.3 PG Mean Corpuscular Hemoglobin Concent 34.2 % Red Cell Distribution Width 13.6 % Platelet Count 263 TH/MM3 Mean Platelet Volume 7.2 FL Neutrophils (%) (Auto) 80.3 % Lymphocytes (%) (Auto) 10.3 % Monocytes (%) (Auto) 5.9 % Eosinophils (%) (Auto) 3.0 % Basophils (%) (Auto) 0.5 % Neutrophils # (Auto) 7.7 TH/MM3 Lymphocytes # (Auto) 1.0 TH/MM3 Monocytes # (Auto) 0.6 TH/MM3 Eosinophils # (Auto) 0.3 TH/MM3 Basophils # (Auto) 0.0 TH/MM3 CBC Comment DIFF FINAL Differential Comment Blood Urea Nitrogen 20 MG/DL Creatinine 1.38 MG/DL Random Glucose 90 MG/DL Calcium Level 8.0 MG/DL Phosphorus Level 2.7 MG/DL Magnesium Level 1.4 MG/DL Sodium Level 138 MEQ/L Potassium Level 3.3 MEQ/L Chloride Level 100 MEQ/L Carbon Dioxide Level 29.3 MEQ/L Anion Gap 9 MEQ/L Estimat Glomerular Filtration Rate 49 ML/MIN Assessment and Plan Problem List: (1) Paroxysmal atrial fibrillation with rapid ventricular response ICD Codes: I48.0 - Paroxysmal atrial fibrillation (2) Perforated diverticulum of small intestine ICD Codes: K57.00 - Diverticulitis of small intestine with perforation and abscess without bleeding Status: Resolved (3) COPD with exacerbation ICD Codes: J44.1 - Chronic obstructive pulmonary disease with (acute) exacerbation Status: Acute (4) Peritonitis ICD Codes: K65.9 - Peritonitis, unspecified Assessment and Plan 1) Afib with RVR Converted to NSR with Amiodarone Cardizem PO Will avoid Beta Blockers for now, concern for bronchospasm 2) EF 60-65%, stage 1 diastolic dysfunction 3) CHADSVASc=3 Discussed extensively with him and his family his risk of stroke vs bleeding and that his risk of stroke is higher than his risk of bleeding He would like to continue on ASA 81mg daily for anti-coagulation, understands that this proves little protection 4) Scrotal/lower extremity edema Agree with Lasix BID Diuresed well Gregorio Uriostegui DO May 15, 2017 11:40
[2017-05-15] MEDS: POTASSIUM CHLOR 20 MEQ PREMIX 100 ML IV SCH ×2 (13:36→18:01)
--- NOTE | 2017-05-15 14:12 | HHI.PR ---
Subjective Remarks telemetry - in sinus rhythm no complains of abdominal pain, chest discomfort or shortness of breath up in chair Objective Vitals Vital Signs Date Time Temp Pulse Resp B/P (MAP) Pulse Ox O2 Delivery O2 Flow Rate FiO2 05/15/17 12:00 98.1 83 18 105/71 (82) 94 05/15/17 08:00 98.4 77 19 145/76 (99) 96 05/15/17 04:02 73 05/15/17 04:00 97.7 75 14 150/65 (93) 96 05/15/17 00:00 97.9 72 14 152/65 (94) 92 05/14/17 23:59 80 05/14/17 20:00 77 05/14/17 20:00 98.1 74 14 150/62 (91) 95 05/14/17 16:00 97.4 82 16 141/78 (99) 93 05/14/17 14:30 98.1 100 17 138/73 (94) 98 I/O 05/14/17 05/14/17 05/14/17 05/15/17 05/15/17 05/15/17 07:00 15:00 23:00 07:00 15:00 23:00 Intake Total 290 ml 1070 ml 150 ml Output Total 3060 ml 1620 ml 3500 ml Balance -2770 ml -550 ml -3350 ml Intake Oral 240 ml 720 ml 100 ml IV Total 50 ml 350 ml 50 ml Output Urine Total 3000 ml 1600 ml 3500 ml Drainage Total 60 ml 20 ml # Bowel Movements 1 3 0 Result Diagram: 05/15/17 0737 05/15/17 0737 Imaging Last Impressions Abdomen X-Ray 05/10/17 0000 Signed Impressions: Service Date/Time: Wednesday, May 10, 2017 12:03 - CONCLUSION: 1. Status post abdominal surgery. 2. Nonspecific gas pattern without significant ileus. 3. Left hip prosthesis. Antoine Valdivia MD Chest X-Ray 05/06/17 1532 Signed Impressions: Service Date/Time: Saturday, May 06, 2017 04:51 - CONCLUSION: Mild patchy infiltrate left medial lung base. Right lung clear. Lines and tubes as above. Mikhail Garcia MD Abdomen/Pelvis CT 05/05/17 0917 Signed Impressions: Service Date/Time: Friday, May 05, 2017 12:15 - CONCLUSION: 1. Free intraperitoneal air likely from bowel perforation. Most likely location is at the splenic flexure where there is a 4 cm air-fluid level characteristic of an abscess. Differential diagnosis is localized diverticulitis or colitis. Tucker Rivera MD Objective Remarks awake and alert, oriented x 3, good sats at room air anicteric lungs- no rales regular rhyhtm abdomen- incision dry, abdelrahman in place ++ scrotal edema extremities- + pretibial edema right lower extremity- with large blister/bullae- with clear fluid- from edema Procedures 1. Status post expiratory laparotomy and small bowel resection. 2. Status post exploratory laparotomy and closure of wound dehiscence. Urinary Catheter: Yes Assessment to: Continue Junior insert reason: Measure Accurate Output A/P Assessment and Plan 86 years old (1) Sepsis Plan: Present on admission. The patient with leukocytosis and increased heart rate more than 90. Likely secondary to peritonitis and aspiration pneumonia. Sepsis syndrome is clinically resolving with improved heart rate and downtrending leukocytosis. Continue IV Zosyn and continue to monitor vital signs and trend WBCs. (2) Respiratory failure- resolved Status: Resolved Plan: Due to likely aspiration pneumonia with mild patchy infiltrate on the left medial lung base on chest x-ray obtained on 05/06/17. Patient on IV Zosyn, continue Supplemental O2. Bronchodilator therapy. (3) Peritonitis Perforated diverticulum of small intestine, s/p repair ICD Code: K65.9 - Peritonitis, unspecified Plan: Abdomen pelvis CT showed free intraperitoneal air likely from bowel perforation. Surgery consulted. Patient status post surgery laparotomy with bowel resection and days later expiratory laparotomy with wound dehiscence closure. Continue pain control as per general surgery. Management as per general surgery. (4) ART (acute kidney injury) ICD Code: N17.9 - Acute kidney failure, unspecified Plan: Creatinine on admission 1.39. Acute kidney injury likely due to prerenal azotemia from dehydration. worsening renal functions- will decrease lasix to 20 mg bid (5) COPD with exacerbation- in remission ICD Code: J44.1 - Chronic obstructive pulmonary disease with (acute) exacerbation Status: Acute Plan: Treated with bronchodilator therapy. As per medical records there is no evidence that the patient was administered steroids. (7) Paroxysmal atrial fibrillation with rapid ventricular response- currently in SR ICD Code: I48.0 - Paroxysmal atrial fibrillation continue on amiodarone po Heart rate back to normal sinus rhythm controlled on Cardizem p.o. claudiatnet refused OAC. continue on ASA Cardiology ff (8) Wound dehiscence ICD Code: T81.30XA - Disruption of wound, unspecified, initial encounter Status: Resolved (9) Anasarca ICD Code: R60.1 - Generalized edema Plan: Patient has a total fluid balance of +4105 mL's. The patient also has gained several pounds patient also went from 85 kg to 92.6. Scrotal edema and +2 lower extremity edema with fluid blisters. Continue IV Lasix 40 mg IV BID- decreased to 20 mg bid- with increase creatinine , strict I's and O's need to be measured and accurately recorded, check daily weights. (10) Hypophosphatemia Hypokalemia ICD Code: E83.39 - Other disorders of phosphorus metabolism Plan: Due to decreased oral intake. On Neutraphos - phosphorus levels slowly trending up Continue to monitor phosphorus levels. replaced with IV K FF BMP GI prophylaxis: On PPI. DVT prophylaxis: Lovenox d/w patient and and family DC plan- SNF- Omayra De La Cruz MD May 15, 2017 14:11
--- NOTE | 2017-05-15 15:37 | HHI.PR ---
Subjective Subjective Notes Up to chair "I just need to give it time...I know." Daughter at bedside Objective Vitals/I&O Vital Signs Date Time Temp Pulse Resp B/P (MAP) Pulse Ox O2 Delivery O2 Flow Rate FiO2 05/15/17 12:00 98.1 83 18 105/71 (82) 94 05/13/17 08:38 21 05/13/17 04:34 Nasal Cannula 1.00 Labs Laboratory Tests Test 05/15/17 07:37 White Blood Count 9.5 Red Blood Count 3.34 Hemoglobin 10.4 Hematocrit 30.5 Mean Corpuscular Volume 91.3 Mean Corpuscular Hemoglobin 31.3 Mean Corpuscular Hemoglobin Concent 34.2 Red Cell Distribution Width 13.6 Platelet Count 263 Mean Platelet Volume 7.2 Neutrophils (%) (Auto) 80.3 Lymphocytes (%) (Auto) 10.3 Monocytes (%) (Auto) 5.9 Eosinophils (%) (Auto) 3.0 Basophils (%) (Auto) 0.5 Neutrophils # (Auto) 7.7 Lymphocytes # (Auto) 1.0 Monocytes # (Auto) 0.6 Eosinophils # (Auto) 0.3 Basophils # (Auto) 0.0 CBC Comment DIFF FINAL Differential Comment Blood Urea Nitrogen 20 Creatinine 1.38 Random Glucose 90 Calcium Level 8.0 Phosphorus Level 2.7 Magnesium Level 1.4 Sodium Level 138 Potassium Level 3.3 Chloride Level 100 Carbon Dioxide Level 29.3 Anion Gap 9 Estimat Glomerular Filtration Rate 49 Date/Time Source Procedure Growth Status 05/05/17 14:14 Fluid Other Gram Stain - Final Complete 05/05/17 14:14 Body Fluid Culture - Final Klebsiella Pneumoniae Multi-Drug Resistant Complete Radiology Last 48 hours Impressions Abdomen X-Ray 05/05/17 1017 Signed Impressions: Service Date/Time: Friday, May 05, 2017 10:47 - CONCLUSION: 1. Pneumoperitoneum on the right side. Prashanth Mcintyre MD Abdomen/Pelvis CT 05/05/17 0917 Signed Impressions: Service Date/Time: Friday, May 05, 2017 12:15 - CONCLUSION: 1. Free intraperitoneal air likely from bowel perforation. Most likely location is at the splenic flexure where there is a 4 cm air-fluid level characteristic of an abscess. Differential diagnosis is localized diverticulitis or colitis. Tucker Rivera MD Cardiovascular: Regular Lungs: Clear Abdomen: Other (midline incision -- retenetion sutures in place; non tender ) Extremities: Other (see below ) Narrative Exam RIGHT ankle---large blister severe scrotal edema A/P Problem List: (1) Respiratory failure ICD Codes: J96.90 - Respiratory failure, unspecified, unspecified whether with hypoxia or hypercapnia Status: Resolved (2) Peritonitis ICD Codes: K65.9 - Peritonitis, unspecified (3) ART (acute kidney injury) ICD Codes: N17.9 - Acute kidney failure, unspecified (4) COPD with exacerbation ICD Codes: J44.1 - Chronic obstructive pulmonary disease with (acute) exacerbation Status: Acute (5) Perforated diverticulum of small intestine ICD Codes: K57.00 - Diverticulitis of small intestine with perforation and abscess without bleeding Status: Resolved (6) Paroxysmal atrial fibrillation with rapid ventricular response ICD Codes: I48.0 - Paroxysmal atrial fibrillation (7) Hypokalemia due to loss of potassium ICD Codes: E87.6 - Hypokalemia Assessment and Plan 86 year old male s/p exp lap, resection of jejunum; s/p placement of retention sutures due to wound dehiscence -Cardiology following---on PO Cardizem -Regular diet -Abdominal binder -Monitor labs -Lovenox -Lasix today -OOB as tolerated ---PT -Continue Zosyn Attending Note - Dr. Dang Abdomen dry Scrotal edema persists; had 5100 ml urine output with lasix Supplement K+ again Convert to PO meds The exam, history, and the medical decision-making described in the above note were completed with the assistance of the mid-level provider. I reviewed and agree with the findings presented. I attest that I had a [id number] encounter with the patient on the same day, and personally performed and documented my assessment and findings in the medical record. Alma MillerP/Program Schedule Clerk PROFESSOR OF BUSINESS ADMINISTRATION May 15, 2017 15:37 Rogelio Dang MD 5, 2018 20:45
[2017-05-15] MEDS: FUROSEMIDE 20 MG/2 ML VIAL IV PUSH SCH (18:01)
[2017-05-15] MEDS: ACETAMINOPHEN/HYDROcodone 325 MG/7.5 MG TAB PO PRN (20:24)
[2017-05-15] MEDS: ENOXAPARIN SODIUM 40 MG/0.4 ML SYRINGE SQ SCH (20:24)
[2017-05-15] MEDS: RESP: ALBUTEROL 2.5 MG/IPRATROPIUM 0.5 MG NEB (PRN) INH (21:18)
[2017-05-16] VITALS (7 sets, daily range): BP systolic 112–146; BP diastolic 63–68; PULSE 75–87; RESP 17–18; TEMP 97.4–98.1; O2SAT 94–96
[2017-05-16] MEDS: DILTIAZEM HCL 30 MG TAB PO SCH ×4 (00:40→18:34)
[2017-05-16] MEDS: CHLORHEXIDINE GLUCONATE 2 % 1 PACK (2 CLOTHS) TOP SCH (04:00)
[2017-05-16] MEDS: PIPERACIL-TAZO 2.25 GM PREMIX 50 ML IV SCH ×2 (05:01→09:28)
[2017-05-16 07:56] LABS: BICARBONATE 30.2 MEQ/L (21.0-32.0); CALCIUM 7.5 MG/DL (8.5-10.1); CREATININE 1.51 MG/DL (0.60-1.30)
[2017-05-16] MEDS: CHLORHEXIDINE 0.12% (ORAL KIT) 15 ML CUP MT SCH ×2 (08:00→19:21)
[2017-05-16] MEDS: FAMOTIDINE 20 MG/2 ML VIAL IV PUSH SCH (08:05)
[2017-05-16] MEDS: FUROSEMIDE 20 MG/2 ML VIAL IV PUSH SCH (08:06)
--- NOTE | 2017-05-16 12:45 | HHI.PR ---
Subjective Subjective Notes Up to chair Family visiting Feels like swelling is better today Not sure about going to rehab now Objective Vitals/I&O Vital Signs Date Time Temp Pulse Resp B/P (MAP) Pulse Ox O2 Delivery O2 Flow Rate FiO2 05/16/17 12:00 98.1 82 17 112/68 (83) 95 05/13/17 08:38 21 05/13/17 04:34 Nasal Cannula 1.00 Labs Laboratory Tests Test 05/16/17 07:07 Blood Urea Nitrogen 21 Creatinine 1.51 Random Glucose 109 Calcium Level 7.5 Sodium Level 137 Potassium Level 3.5 Chloride Level 98 Carbon Dioxide Level 30.2 Anion Gap 9 Estimat Glomerular Filtration Rate 44 Date/Time Source Procedure Growth Status 05/05/17 14:14 Fluid Other Gram Stain - Final Complete 05/05/17 14:14 Body Fluid Culture - Final Klebsiella Pneumoniae Multi-Drug Resistant Complete Radiology Last 48 hours Impressions Abdomen X-Ray 05/05/17 1017 Signed Impressions: Service Date/Time: Friday, May 05, 2017 10:47 - CONCLUSION: 1. Pneumoperitoneum on the right side. Prashanth Mcintyre MD Abdomen/Pelvis CT 05/05/17 0917 Signed Impressions: Service Date/Time: Friday, May 05, 2017 12:15 - CONCLUSION: 1. Free intraperitoneal air likely from bowel perforation. Most likely location is at the splenic flexure where there is a 4 cm air-fluid level characteristic of an abscess. Differential diagnosis is localized diverticulitis or colitis. Tucker Rivera MD Cardiovascular: Regular Lungs: Clear Abdomen: Other (retention sutures in place; abdomen soft; non tender ) Extremities: Other (mild BLE edema ) Narrative Exam RIGHT ankle---large blister severe scrotal edema A/P Problem List: (1) Respiratory failure ICD Codes: J96.90 - Respiratory failure, unspecified, unspecified whether with hypoxia or hypercapnia Status: Resolved (2) Peritonitis ICD Codes: K65.9 - Peritonitis, unspecified (3) ART (acute kidney injury) ICD Codes: N17.9 - Acute kidney failure, unspecified (4) COPD with exacerbation ICD Codes: J44.1 - Chronic obstructive pulmonary disease with (acute) exacerbation Status: Acute (5) Perforated diverticulum of small intestine ICD Codes: K57.00 - Diverticulitis of small intestine with perforation and abscess without bleeding Status: Resolved (6) Paroxysmal atrial fibrillation with rapid ventricular response ICD Codes: I48.0 - Paroxysmal atrial fibrillation (7) Hypokalemia due to loss of potassium ICD Codes: E87.6 - Hypokalemia Assessment and Plan 86 year old male s/p exp lap, resection of jejunum; s/p placement of retention sutures due to wound dehiscence -Continue PO Cardizem -Regular diet -Abdominal binder -Monitor labs due to Lasix -Lovenox -OOB as tolerated ---PT -DC Zosyn -DC RAMIN drain Attending Note - Dr. Dang Abdominal wound clean; RAMIN removed by undersigned Scrotum still engorged/edematous Will leave ann in for now. D/C planning to [facility] next 48 hrs. The exam, history, and the medical decision-making described in the above note were completed with the assistance of the mid-level provider. I reviewed and agree with the findings presented. I attest that I had a [id number] encounter with the patient on the same day, and personally performed and documented my assessment and findings in the medical record. Alma Miller/First Bernardo HIDALGO May 16, 2017 12:45 Rogelio Dang MD May 17, 2017 13:35
--- NOTE | 2017-05-16 14:19 | PD.CARD.PN ---
Subjective Subjective Remarks Doing well, up to the chair Scrotal/lower extremity edema better per the patient Telemetry showing NSR Objective Medications Current Medications Medications (Trade) Dose Ordered Sig/Alia Route Start Time Stop Time Status Last Admin (NS Flush) 2 ml UNSCH PRN IV FLUSH 05/05/17 09:30 05/12/17 20:13 (Duoneb Neb) 1 ampule Q2HR NEB PRN INH 05/05/17 13:15 05/15/17 21:18 Miscellaneous Information 1 Q361D XX 05/05/17 13:15 (Chlorhexidine 2% Cloth) Taper DAILY@04 TOP 05/06/17 04:00 05/02/18 03:59 05/10/17 04:00 (Chlorhexidine 2% Cloth) 3 pack UNSCH PRN TOP 05/05/17 13:15 (Zofran Inj) 4 mg Q6H PRN IV PUSH 05/05/17 15:45 (Narcan Inj) 0.4 mg UNSCH PRN IV PUSH 05/05/17 15:45 (Benadryl Inj) 25 mg Q6H PRN IV PUSH 05/05/17 15:45 05/10/17 02:18 (Peridex 0.12% Liq) 15 ml BID@08,20 MT 05/05/17 20:00 05/13/17 08:00 (Pepcid Inj) 10 mg Q12HR IV PUSH 05/06/17 09:00 05/16/17 08:05 (Cardizem) 30 mg Q6HR PO 05/08/17 13:00 05/16/17 12:26 Piperacillin Sod/ Tazobactam Sod 50 ml @ 100 mls/hr Q6H IV 05/11/17 16:00 05/16/17 09:28 (Lovenox Inj) 40 mg Q24H SQ 05/11/17 20:00 05/15/17 20:24 ([place] 7.5-325 Mg) 1 tab Q4H PRN PO 05/11/17 17:30 05/13/17 11:46 ([place] 7.5-325 Mg) 2 tab Q4H PRN PO 05/11/17 17:30 05/15/17 20:24 (Lasix Inj) 20 mg BID@0900,1800 IV PUSH 05/15/17 18:00 3/6/18 08:06 Vital Signs / I&O Vital Signs Date Time Temp Pulse Resp B/P (MAP) Pulse Ox O2 Delivery O2 Flow Rate FiO2 05/16/17 12:00 98.1 82 17 112/68 (83) 95 05/16/17 08:00 97.8 75 17 128/65 (86) 94 05/16/17 04:00 97.4 77 18 136/66 (89) 95 05/16/17 00:23 79 05/16/17 00:00 97.5 87 18 129/63 (85) 96 05/15/17 21:27 97 05/15/17 20:00 94 05/15/17 20:00 97.3 91 19 122/75 (91) 96 05/15/17 16:00 97.8 91 18 129/72 (91) 96 I/O 05/15/17 05/15/17 05/15/17 05/16/17 05/16/17 05/16/17 07:00 15:00 23:00 07:00 15:00 23:00 Intake Total 150 ml 960 ml 680 ml Output Total 3500 ml 1390 ml 1350 ml Balance -3350 ml -430 ml -670 ml Intake Oral 100 ml 960 ml 480 ml IV Total 50 ml 200 ml Output Urine Total 3500 ml 1350 ml 1350 ml Drainage Total 40 ml # Bowel Movements 0 3 Physical Exam GENERAL: NAD, AAOx3 SKIN: Warm and dry. HEAD: Atraumatic. Normocephalic. EYES: Pupils equal and round. No scleral icterus. No injection or drainage. ENT: No nasal bleeding or discharge. Mucous membranes pink and moist. NECK: Trachea midline. No JVD. CARDIOVASCULAR: Regular rate and rhythm. RESPIRATORY: No accessory muscle use. Clear to auscultation. Breath sounds equal bilaterally. GASTROINTESTINAL: Abdomen soft, non-tender, nondistended. Hepatic and splenic margins not palpable. Dressing clean/dry MUSCULOSKELETAL: Extremities without clubbing, cyanosis, or edema. No obvious deformities. NEUROLOGICAL: Awake and alert. No obvious cranial nerve deficits. Motor grossly within normal limits. Five out of 5 muscle strength in the arms and legs. Normal speech. PSYCHIATRIC: Appropriate mood and affect; insight and judgment normal. Laboratory Laboratory Tests Test 05/16/17 07:07 Blood Urea Nitrogen 21 MG/DL Creatinine 1.51 MG/DL Random Glucose 109 MG/DL Calcium Level 7.5 MG/DL Sodium Level 137 MEQ/L Potassium Level 3.5 MEQ/L Chloride Level 98 MEQ/L Carbon Dioxide Level 30.2 MEQ/L Anion Gap 9 MEQ/L Estimat Glomerular Filtration Rate 44 ML/MIN Assessment and Plan Problem List: (1) Paroxysmal atrial fibrillation with rapid ventricular response ICD Codes: I48.0 - Paroxysmal atrial fibrillation (2) Perforated diverticulum of small intestine ICD Codes: K57.00 - Diverticulitis of small intestine with perforation and abscess without bleeding Status: Resolved (3) COPD with exacerbation ICD Codes: J44.1 - Chronic obstructive pulmonary disease with (acute) exacerbation Status: Acute (4) Peritonitis ICD Codes: K65.9 - Peritonitis, unspecified Assessment and Plan 1) Afib with RVR Converted to NSR with Amiodarone Cardizem PO Will avoid Beta Blockers for now, concern for bronchospasm 2) EF 60-65%, stage 1 diastolic dysfunction 3) CHADSVASc=3 Discussed extensively with him and his family his risk of stroke vs bleeding and that his risk of stroke is higher than his risk of bleeding He would like to continue on ASA 81mg daily for anti-coagulation, understands that this proves little protection 4) Scrotal/lower extremity edema Agree with Lasix BID Diuresed well, decreased dose due to increased creatinine, con't to follow Gregorio Uriostegui DO May 16, 2017 14:19
--- NOTE | 2017-05-16 15:25 | HHI.PR ---
Subjective Remarks doing great leg swelling or scrotal swelling much improved diuresing too much- > 4 L on bid Lasix creatinine bumped up Objective Vitals Vital Signs Date Time Temp Pulse Resp B/P (MAP) Pulse Ox O2 Delivery O2 Flow Rate FiO2 05/16/17 12:00 98.1 82 17 112/68 (83) 95 05/16/17 08:00 97.8 75 17 128/65 (86) 94 05/16/17 04:00 97.4 77 18 136/66 (89) 95 05/16/17 00:23 79 05/16/17 00:00 97.5 87 18 129/63 (85) 96 05/15/17 21:27 97 05/15/17 20:00 94 05/15/17 20:00 97.3 91 19 122/75 (91) 96 05/15/17 16:00 97.8 91 18 129/72 (91) 96 I/O 05/15/17 05/15/17 05/15/17 05/16/17 05/16/17 05/16/17 07:00 15:00 23:00 07:00 15:00 23:00 Intake Total 150 ml 960 ml 680 ml Output Total 3500 ml 1390 ml 1350 ml Balance -3350 ml -430 ml -670 ml Intake Oral 100 ml 960 ml 480 ml IV Total 50 ml 200 ml Output Urine Total 3500 ml 1350 ml 1350 ml Drainage Total 40 ml # Bowel Movements 0 3 Result Diagram: 05/15/17 0737 05/16/17 0707 Imaging Last Impressions Abdomen X-Ray 05/10/17 0000 Signed Impressions: Service Date/Time: Wednesday, May 10, 2017 12:03 - CONCLUSION: 1. Status post abdominal surgery. 2. Nonspecific gas pattern without significant ileus. 3. Left hip prosthesis. Antoine Valdivia MD Chest X-Ray 05/06/17 1532 Signed Impressions: Service Date/Time: Saturday, May 06, 2017 04:51 - CONCLUSION: Mild patchy infiltrate left medial lung base. Right lung clear. Lines and tubes as above. Mikhail Garcia MD Abdomen/Pelvis CT 05/05/17 0917 Signed Impressions: Service Date/Time: Friday, May 05, 2017 12:15 - CONCLUSION: 1. Free intraperitoneal air likely from bowel perforation. Most likely location is at the splenic flexure where there is a 4 cm air-fluid level characteristic of an abscess. Differential diagnosis is localized diverticulitis or colitis. Tucker Rivera MD Objective Remarks awake and alert, oriented x 3, good sats at room air anicteric lungs- no rales regular rhyhtm abdomen- incision dry, abdelrahman in place decreased scrotal edema- improved- some dry excoriations extremities- decreased edema right lower extremity- /bullae- with clear fluid- from edema- decreased ambulating gently with a walker Procedures 1. Status post expiratory laparotomy and small bowel resection. 2. Status post exploratory laparotomy and closure of wound dehiscence. A/P Problem List: (1) Sepsis ICD Code: A41.9 - Sepsis, unspecified organism (2) Respiratory failure ICD Code: J96.90 - Respiratory failure, unspecified, unspecified whether with hypoxia or hypercapnia Status: Resolved (3) Peritonitis ICD Code: K65.9 - Peritonitis, unspecified (4) ART (acute kidney injury) ICD Code: N17.9 - Acute kidney failure, unspecified (5) COPD with exacerbation ICD Code: J44.1 - Chronic obstructive pulmonary disease with (acute) exacerbation Status: Acute (6) Perforated diverticulum of small intestine ICD Code: K57.00 - Diverticulitis of small intestine with perforation and abscess without bleeding Status: Resolved (7) Paroxysmal atrial fibrillation with rapid ventricular response ICD Code: I48.0 - Paroxysmal atrial fibrillation (8) Wound dehiscence ICD Code: T81.30XA - Disruption of wound, unspecified, initial encounter Status: Resolved (9) Anasarca ICD Code: R60.1 - Generalized edema (10) Hypophosphatemia ICD Code: E83.39 - Other disorders of phosphorus metabolism Assessment and Plan 86 years old (1) Sepsis Plan: Present on admission. The patient with leukocytosis and increased heart rate more than 90. Likely secondary to peritonitis and aspiration pneumonia. Sepsis syndrome is clinically resolving with improved heart rate and downtrending leukocytosis. Continue IV Zosyn and continue to monitor vital signs and trend WBCs. (2) Respiratory failure- resolved Status: Resolved Plan: Due to likely aspiration pneumonia with mild patchy infiltrate on the left medial lung base on chest x-ray obtained on 05/06/17. Patient on IV Zosyn, continue Supplemental O2. Bronchodilator therapy. (3) Peritonitis Perforated diverticulum of small intestine, s/p repair ICD Code: K65.9 - Peritonitis, unspecified Plan: Abdomen pelvis CT showed free intraperitoneal air likely from bowel perforation. Surgery consulted. Patient status post surgery laparotomy with bowel resection and days later expiratory laparotomy with wound dehiscence closure. Continue pain control as per general surgery. Management as per general surgery. (4) ART (acute kidney injury) ICD Code: N17.9 - Acute kidney failure, unspecified Plan: Creatinine on admission 1.39. Acute kidney injury likely due to prerenal azotemia from dehydration. worsening renal functions- will decrease lasix to 20 mg bid reviewed UO- over 5 L will decrease lasix to once daily (5) COPD with exacerbation- in remission ICD Code: J44.1 - Chronic obstructive pulmonary disease with (acute) exacerbation Status: Acute Plan: Treated with bronchodilator therapy. As per medical records there is no evidence that the patient was administered steroids. (7) Paroxysmal atrial fibrillation with rapid ventricular response- currently in SR ICD Code: I48.0 - Paroxysmal atrial fibrillation continue on amiodarone po Heart rate back to normal sinus rhythm controlled on Cardizem p.o. paitnet refused OAC. continue on ASA Cardiology ff (8) Wound dehiscence ICD Code: T81.30XA - Disruption of wound, unspecified, initial encounter Status: Resolved (9) Anasarca- improving ICD Code: R60.1 - Generalized edema. U) - 4-5 L /day The patient also has gained several pounds patient also went from 85 kg to 92.6. Scrotal edema and +2 lower extremity edema with fluid blisters.- improved Continue IV Lasix decrease further down to 20 mg daily , strict I's and O's need to be measured and accurately recorded, check daily weights. check BMP in am- if no improved- will hold temporarily (10) Hypophosphatemia Hypokalemia- improved ICD Code: E83.39 - Other disorders of phosphorus metabolism Plan: Due to decreased oral intake. On Neutraphos - phosphorus levels slowly trending up Continue to monitor phosphorus levels. KCL 20 meq po daily FF BMP Lasix decrease to once daily Scrotal superficial wounds/excoriations - wound care team nurse consult GI prophylaxis: On PPI. DVT prophylaxis: Lovenox d/w patient and and family DC plan- SNF- Omayra De La Cruz MD May 16, 2017 15:25
[2017-05-16] MEDS ORDERED: POTASSIUM CHLORIDE 10 MEQ CONTROLLED RELEASE TAB PO ONE (15:30)
[2017-05-16] MEDS ORDERED: FAMOTIDINE 20 MG TAB PO SCH (21:00)
[2017-05-16] MEDS: ENOXAPARIN SODIUM 40 MG/0.4 ML SYRINGE SQ SCH (21:53)
[2017-05-16] MEDS: ACETAMINOPHEN/HYDROcodone 325 MG/7.5 MG TAB PO PRN (21:54)
[2017-05-17] VITALS (8 sets, daily range): BP systolic 124–150; BP diastolic 59–71; PULSE 71–87; RESP 16–20; TEMP 96.5–98.4; O2SAT 93–96
[2017-05-17] MEDS: DILTIAZEM HCL 30 MG TAB PO SCH ×4 (00:23→18:35)
[2017-05-17] MEDS: CHLORHEXIDINE GLUCONATE 2 % 1 PACK (2 CLOTHS) TOP SCH (04:00)
[2017-05-17] MEDS: CHLORHEXIDINE 0.12% (ORAL KIT) 15 ML CUP MT SCH ×2 (08:00→19:43)
[2017-05-17 08:54] LABS: BICARBONATE 28.6 MEQ/L (21.0-32.0); CALCIUM 8.2 MG/DL (8.5-10.1); CREATININE 1.35 MG/DL (0.60-1.30)
[2017-05-17] MEDS ORDERED: FUROSEMIDE 20 MG/2 ML VIAL IV PUSH SCH (09:00)
--- NOTE | 2017-05-17 10:08 | HHI.PR ---
Subjective Remarks telemetry- in SR feeling stronger no pain getting a shave Objective Vitals Vital Signs Date Time Temp Pulse Resp B/P (MAP) Pulse Ox O2 Delivery O2 Flow Rate FiO2 05/17/17 08:00 97.5 77 16 150/67 (94) 95 05/17/17 04:42 96.5 74 18 139/65 (89) 95 05/17/17 00:00 98.3 81 18 124/59 (80) 93 05/16/17 20:00 98.0 84 18 146/68 (94) 94 05/16/17 16:00 98.1 78 18 123/68 (86) 95 05/16/17 12:00 98.1 82 17 112/68 (83) 95 I/O 05/16/17 05/16/17 05/16/17 05/17/17 05/17/17 05/17/17 07:00 15:00 23:00 07:00 15:00 23:00 Intake Total 680 ml 360 ml 480 ml Output Total 1350 ml 1550 ml 650 ml Balance -670 ml -1190 ml -170 ml Intake Oral 480 ml 360 ml 480 ml IV Total 200 ml Output Urine Total 1350 ml 1550 ml 650 ml # Bowel Movements 1 Result Diagram: 05/15/17 0737 05/17/17 0705 Imaging Last Impressions Abdomen X-Ray 05/10/17 0000 Signed Impressions: Service Date/Time: Wednesday, May 10, 2017 12:03 - CONCLUSION: 1. Status post abdominal surgery. 2. Nonspecific gas pattern without significant ileus. 3. Left hip prosthesis. Antoine Valdivia MD Chest X-Ray 05/06/17 1532 Signed Impressions: Service Date/Time: Saturday, May 06, 2017 04:51 - CONCLUSION: Mild patchy infiltrate left medial lung base. Right lung clear. Lines and tubes as above. Mikhail Garcia MD Abdomen/Pelvis CT 05/05/17 0917 Signed Impressions: Service Date/Time: Friday, May 05, 2017 12:15 - CONCLUSION: 1. Free intraperitoneal air likely from bowel perforation. Most likely location is at the splenic flexure where there is a 4 cm air-fluid level characteristic of an abscess. Differential diagnosis is localized diverticulitis or colitis. Tucker Rivera MD Objective Remarks awake and alert, oriented x 3, good sats at room air anicteric lungs- no rales regular rhythm abdomen- incision dry, abdelrahman in place decreased + scrotal edema- improved- some dry excoriations extremities- decreased edema right lower extremity- /bullae- with clear fluid- from edema- decreased ambulating gently with a walker Procedures 1. Status post expiratory laparotomy and small bowel resection. 2. Status post exploratory laparotomy and closure of wound dehiscence. A/P Problem List: (1) Sepsis ICD Code: A41.9 - Sepsis, unspecified organism (2) Respiratory failure ICD Code: J96.90 - Respiratory failure, unspecified, unspecified whether with hypoxia or hypercapnia Status: Resolved (3) Peritonitis ICD Code: K65.9 - Peritonitis, unspecified (4) ART (acute kidney injury) ICD Code: N17.9 - Acute kidney failure, unspecified (5) COPD with exacerbation ICD Code: J44.1 - Chronic obstructive pulmonary disease with (acute) exacerbation Status: Acute (6) Perforated diverticulum of small intestine ICD Code: K57.00 - Diverticulitis of small intestine with perforation and abscess without bleeding Status: Resolved (7) Paroxysmal atrial fibrillation with rapid ventricular response ICD Code: I48.0 - Paroxysmal atrial fibrillation (8) Wound dehiscence ICD Code: T81.30XA - Disruption of wound, unspecified, initial encounter Status: Resolved (9) Anasarca ICD Code: R60.1 - Generalized edema (10) Hypophosphatemia ICD Code: E83.39 - Other disorders of phosphorus metabolism Assessment and Plan 86 years old (1) Sepsis Plan: Present on admission. The patient with leukocytosis and increased heart rate more than 90. Likely secondary to peritonitis and aspiration pneumonia. Sepsis syndrome is clinically resolving with improved heart rate and downtrending leukocytosis. S/P zosyn course 05/16 (2) Respiratory failure- resolved Status: Resolved Plan: Due to likely aspiration pneumonia with mild patchy infiltrate on the left medial lung base on chest x-ray obtained on 05/06/17. Supplemental O2. Bronchodilator therapy. (3) Peritonitis Perforated diverticulum of small intestine, s/p repair ICD Code: K65.9 - Peritonitis, unspecified Plan: Abdomen pelvis CT showed free intraperitoneal air likely from bowel perforation. Surgery ff Patient status post surgery laparotomy with bowel resection and days later expiratory laparotomy with wound dehiscence closure. Continue pain control as per general surgery. Management as per general surgery. (4) ART (acute kidney injury)- creatinine trending up - now trending down ICD Code: N17.9 - Acute kidney failure, unspecified Plan: Creatinine on admission 1.39. Acute kidney injury likely due to prerenal azotemia from dehydration. worsening renal functions- patient getting voerdiuresed- ff urine ouptut reviewed UO- over 5 L 3/5 Hold Lasix today- if creatinine improves- restart Lasix at 20 mg daily in am (5) COPD with exacerbation- in remission ICD Code: J44.1 - Chronic obstructive pulmonary disease with (acute) exacerbation Status: Acute Plan: Treated with bronchodilator therapy. As per medical records there is no evidence that the patient was administered steroids. (7) Paroxysmal atrial fibrillation with rapid ventricular response- currently in SR ICD Code: I48.0 - Paroxysmal atrial fibrillation continue on amiodarone po Heart rate back to normal sinus rhythm controlled on Cardizem p.o. paitnet refused OAC. continue on ASA Cardiology ff (8) Wound dehiscence ICD Code: T81.30XA - Disruption of wound, unspecified, initial encounter Status: Resolved (9) Anasarca- improving ICD Code: R60.1 - Generalized edema. U) - 4-5 L /day The patient also has gained several pounds patient also went from 85 kg to 92.6. Scrotal edema and +2 lower extremity edema with fluid blisters.- improved Lasix held with increading creatinine , strict I's and O's need to be measured and accurately recorded, check daily weights. check BMP in am- if no improved- will hold temporarily (10) Hypophosphatemia Hypokalemia- improved ICD Code: E83.39 - Other disorders of phosphorus metabolism Plan: Due to decreased oral intake. On Neutraphos - phosphorus levels slowly trending up Continue to monitor phosphorus levels. KCL 20 meq po daily FF BMP Scrotal superficial wounds/excoriations Superficial leg Blisters/Bullae from edema - wound care team nurse consult GI prophylaxis: On PPI. DVT prophylaxis: Lovenox d/w patient and and family DC plan- [facility]- [facility] vs [facility] care Omayra Erazo MD May 17, 2017 10:08
[2017-05-17] MEDS: POTASSIUM CHLORIDE 20 MEQ CONTROLLED RELEASE TAB PO SCH (10:20)
--- NOTE | 2017-05-17 10:35 | HHI.PR ---
cc: Rogelio Dang MD Subjective Subjective Notes Up to chair Uneventful night Continues to want to go home and not go to rehab Objective Vitals/I&O Vital Signs Date Time Temp Pulse Resp B/P (MAP) Pulse Ox O2 Delivery O2 Flow Rate FiO2 05/17/17 08:00 97.5 77 16 150/67 (94) 95 05/13/17 08:38 21 Labs Laboratory Tests Test 05/17/17 07:05 Blood Urea Nitrogen 22 Creatinine 1.35 Random Glucose 89 Calcium Level 8.2 Sodium Level 136 Potassium Level 3.9 Chloride Level 100 Carbon Dioxide Level 28.6 Anion Gap 7 Estimat Glomerular Filtration Rate 50 Date/Time Source Procedure Growth Status 05/05/17 14:14 Fluid Other Gram Stain - Final Complete 05/05/17 14:14 Body Fluid Culture - Final Klebsiella Pneumoniae Multi-Drug Resistant Complete Radiology Last 48 hours Impressions Abdomen X-Ray 05/05/17 1017 Signed Impressions: Service Date/Time: Friday, May 05, 2017 10:47 - CONCLUSION: 1. Pneumoperitoneum on the right side. Prashanth Mcintyre MD Abdomen/Pelvis CT 05/05/17 0917 Signed Impressions: Service Date/Time: Friday, May 05, 2017 12:15 - CONCLUSION: 1. Free intraperitoneal air likely from bowel perforation. Most likely location is at the splenic flexure where there is a 4 cm air-fluid level characteristic of an abscess. Differential diagnosis is localized diverticulitis or colitis. Tucker Rivera MD Cardiovascular: Regular Lungs: Clear Abdomen: Other (rentention sutures in place; RAMIN removed and dressing in place; abdomen soft non tender ) Extremities: Other (see below ) Narrative Exam RIGHT ankle---large blister decreasing scrotal edema A/P Problem List: (1) Respiratory failure ICD Codes: J96.90 - Respiratory failure, unspecified, unspecified whether with hypoxia or hypercapnia Status: Resolved (2) Peritonitis ICD Codes: K65.9 - Peritonitis, unspecified (3) ART (acute kidney injury) ICD Codes: N17.9 - Acute kidney failure, unspecified (4) COPD with exacerbation ICD Codes: J44.1 - Chronic obstructive pulmonary disease with (acute) exacerbation Status: Acute (5) Perforated diverticulum of small intestine ICD Codes: K57.00 - Diverticulitis of small intestine with perforation and abscess without bleeding Status: Resolved (6) Paroxysmal atrial fibrillation with rapid ventricular response ICD Codes: I48.0 - Paroxysmal atrial fibrillation (7) Hypokalemia due to loss of potassium ICD Codes: E87.6 - Hypokalemia Assessment and Plan 86 year old male s/p exp lap, resection of jejunum; s/p placement of retention sutures due to wound dehiscence -Continue PO Cardizem -Regular diet -Abdominal binder -Monitor labs due to Lasix ---closely monitor K, BUN/Cr -Lovenox -OOB as tolerated ---PT -CM consult--- Strongly suggest patient go to Rehab Attending Note - Dr. Dang Wound continues to be clean; RAMIN site dry Scrotum still edematous D/C to rehab tomorrow with ann in place F/U my office next week for staple removal and possibly ann removal Discussed with patient and daughter The exam, history, and the medical decision-making described in the above note were completed with the assistance of the mid-level provider. I reviewed and agree with the findings presented. I attest that I had a [id number] encounter with the patient on the same day, and personally performed and documented my assessment and findings in the medical record. Alma Miller/First Bernardo HIDALGO May 17, 2017 10:35 Rogelio Dang MD May 17, 2017 13:38
--- NOTE | 2017-05-17 14:20 | PD.CARD.PN ---
Subjective Subjective Remarks Doing well, up to the chair Scrotal/lower extremity edema better per the patient Telemetry showing NSR Objective Medications Current Medications Medications (Trade) Dose Ordered Sig/Alia Route Start Time Stop Time Status Last Admin (NS Flush) 2 ml UNSCH PRN IV FLUSH 05/05/17 09:30 05/12/17 20:13 (Duoneb Neb) 1 ampule Q2HR NEB PRN INH 05/05/17 13:15 05/15/17 21:18 Miscellaneous Information 1 Q361D XX 05/05/17 13:15 (Chlorhexidine 2% Cloth) Taper DAILY@04 TOP 05/06/17 04:00 05/02/18 03:59 05/10/17 04:00 (Chlorhexidine 2% Cloth) 3 pack UNSCH PRN TOP 05/05/17 13:15 (Zofran Inj) 4 mg Q6H PRN IV PUSH 05/05/17 15:45 (Narcan Inj) 0.4 mg UNSCH PRN IV PUSH 05/05/17 15:45 (Benadryl Inj) 25 mg Q6H PRN IV PUSH 05/05/17 15:45 05/10/17 02:18 (Peridex 0.12% Liq) 15 ml BID@08,20 MT 05/05/17 20:00 05/13/17 08:00 (Cardizem) 30 mg Q6HR PO 05/08/17 13:00 05/17/17 12:32 ([place] 7.5-325 Mg) 1 tab Q4H PRN PO 05/11/17 17:30 05/13/17 11:46 ([place] 7.5-325 Mg) 2 tab Q4H PRN PO 05/11/17 17:30 05/16/17 21:54 (KCl) 20 meq DAILY PO 05/17/17 09:00 05/17/17 10:20 (Lasix Inj) 20 mg DAILY IV PUSH 05/17/17 09:00 Future Hold (Lovenox Inj) 30 mg Q24H SQ 05/17/17 20:00 (Pepcid) 20 mg DAILY PO 05/18/17 09:00 Vital Signs / I&O Vital Signs Date Time Temp Pulse Resp B/P (MAP) Pulse Ox O2 Delivery O2 Flow Rate FiO2 05/17/17 12:00 97.7 72 18 146/65 (92) 96 05/17/17 08:00 97.5 77 16 150/67 (94) 95 05/17/17 04:42 96.5 74 18 139/65 (89) 95 05/17/17 00:00 98.3 81 18 124/59 (80) 93 05/16/17 20:00 98.0 84 18 146/68 (94) 94 05/16/17 16:00 98.1 78 18 123/68 (86) 95 I/O 05/16/17 05/16/17 05/16/17 05/17/17 05/17/17 05/17/17 07:00 15:00 23:00 07:00 15:00 23:00 Intake Total 680 ml 360 ml 480 ml Output Total 1350 ml 1550 ml 650 ml Balance -670 ml -1190 ml -170 ml Intake Oral 480 ml 360 ml 480 ml IV Total 200 ml Output Urine Total 1350 ml 1550 ml 650 ml # Bowel Movements 1 Physical Exam GENERAL: NAD, AAOx3 SKIN: Warm and dry. HEAD: Atraumatic. Normocephalic. EYES: Pupils equal and round. No scleral icterus. No injection or drainage. ENT: No nasal bleeding or discharge. Mucous membranes pink and moist. NECK: Trachea midline. No JVD. CARDIOVASCULAR: Regular rate and rhythm. RESPIRATORY: No accessory muscle use. Clear to auscultation. Breath sounds equal bilaterally. GASTROINTESTINAL: Abdomen soft, non-tender, nondistended. Hepatic and splenic margins not palpable. Dressing clean/dry MUSCULOSKELETAL: Extremities without clubbing, cyanosis, or edema. No obvious deformities. NEUROLOGICAL: Awake and alert. No obvious cranial nerve deficits. Motor grossly within normal limits. Five out of 5 muscle strength in the arms and legs. Normal speech. PSYCHIATRIC: Appropriate mood and affect; insight and judgment normal. Laboratory Laboratory Tests Test 05/17/17 07:05 Blood Urea Nitrogen 22 MG/DL Creatinine 1.35 MG/DL Random Glucose 89 MG/DL Calcium Level 8.2 MG/DL Sodium Level 136 MEQ/L Potassium Level 3.9 MEQ/L Chloride Level 100 MEQ/L Carbon Dioxide Level 28.6 MEQ/L Anion Gap 7 MEQ/L Estimat Glomerular Filtration Rate 50 ML/MIN Assessment and Plan Problem List: (1) Paroxysmal atrial fibrillation with rapid ventricular response ICD Codes: I48.0 - Paroxysmal atrial fibrillation (2) Perforated diverticulum of small intestine ICD Codes: K57.00 - Diverticulitis of small intestine with perforation and abscess without bleeding Status: Resolved (3) COPD with exacerbation ICD Codes: J44.1 - Chronic obstructive pulmonary disease with (acute) exacerbation Status: Acute (4) Peritonitis ICD Codes: K65.9 - Peritonitis, unspecified Assessment and Plan 1) Afib with RVR Converted to NSR with Amiodarone Cardizem PO Will avoid Beta Blockers for now, concern for bronchospasm 2) EF 60-65%, stage 1 diastolic dysfunction 3) CHADSVASc=3 Discussed extensively with him and his family his risk of stroke vs bleeding and that his risk of stroke is higher than his risk of bleeding He would like to continue on ASA 81mg daily for anti-coagulation, understands that this proves little protection 4) Scrotal/lower extremity edema Agree with Lasix BID Diuresed well, creatinine better on lower dose and continues to diurese Gregorio Uriostegui DO May 17, 2017 14:20
--- NOTE | 2017-05-17 15:35 | PD.WCN.NOT ---
Wound Consult Description: Wound consult ordered by for scrotum Communicated with: Lien ACE , Recommendation: 1) Cleanse Scrotum/socrates area with warm soap and water ,rinse and pat dry. 2) Apply Calazime cream to scrotum/socrates area BID 3) Encourage patient to ambulate regularly Additional Information: Patient was seen today by casualty underwriter on for scrotum.Patient is alert and oriented x3.In bathroom upon writers arrival daughter and spouse present.Medical Delivery Technician assisted patient off commode performed socrates care and was able to assess enlarged scrotum.Patient has small area of denuded skin with wound base being pink tissue.no erythema noted.Patient states swelling to scrotum is slowly going down.Calazime cream applied to scrotum and socrates area.Patient assisted back into recliner.UltraSorb underpad placed on seat for comfort.Medical Delivery Technician notes intact Bulla to RLE medial tibial area with serous fluid present.2 unroofed bullas present on LLE tibial area.LLE was cleansed with normal saline and pat dry.Patient tolerated wound care well. Parag Olivares [facility] May 17, 2017 15:35
[2017-05-17] MEDS: ENOXAPARIN SODIUM 30 MG/0.3 ML SYRINGE SQ SCH (20:14)
[2017-05-17] MEDS: ACETAMINOPHEN/HYDROcodone 325 MG/7.5 MG TAB PO PRN (20:18)
[2017-05-18] VITALS (8 sets, daily range): BP systolic 123–153; BP diastolic 67–76; PULSE 67–111; RESP 18–20; TEMP 97–97.4; O2SAT 94–97
[2017-05-18] MEDS: DILTIAZEM HCL 30 MG TAB PO SCH ×5 (00:26→23:38)
[2017-05-18] MEDS: CHLORHEXIDINE GLUCONATE 2 % 1 PACK (2 CLOTHS) TOP SCH (03:21)
[2017-05-18 06:42] LABS: BICARBONATE 26.1 MEQ/L (21.0-32.0); CALCIUM 8.3 MG/DL (8.5-10.1); CREATININE 1.24 MG/DL (0.60-1.30)
[2017-05-18] MEDS: CHLORHEXIDINE 0.12% (ORAL KIT) 15 ML CUP MT SCH ×2 (07:44→19:31)
[2017-05-18] MEDS: FAMOTIDINE 20 MG TAB PO SCH (08:49)
[2017-05-18] MEDS: POTASSIUM CHLORIDE 20 MEQ CONTROLLED RELEASE TAB PO SCH (08:49)
--- NOTE | 2017-05-18 12:39 | PD.CARD.PN ---
Subjective Subjective Remarks Doing well, up to the chair Scrotal/lower extremity edema better per the patient Telemetry showing NSR Objective Medications Current Medications Medications (Trade) Dose Ordered Sig/Alia Route Start Time Stop Time Status Last Admin (NS Flush) 2 ml UNSCH PRN IV FLUSH 05/05/17 09:30 05/12/17 20:13 (Duoneb Neb) 1 ampule Q2HR NEB PRN INH 05/05/17 13:15 05/15/17 21:18 Miscellaneous Information 1 Q361D XX 05/05/17 13:15 (Chlorhexidine 2% Cloth) Taper DAILY@04 TOP 05/06/17 04:00 05/02/18 03:59 05/10/17 04:00 (Chlorhexidine 2% Cloth) 3 pack UNSCH PRN TOP 05/05/17 13:15 (Zofran Inj) 4 mg Q6H PRN IV PUSH 05/05/17 15:45 (Narcan Inj) 0.4 mg UNSCH PRN IV PUSH 05/05/17 15:45 (Benadryl Inj) 25 mg Q6H PRN IV PUSH 05/05/17 15:45 05/10/17 02:18 (Peridex 0.12% Liq) 15 ml BID@08,20 MT 05/05/17 20:00 05/13/17 08:00 (Cardizem) 30 mg Q6HR PO 05/08/17 13:00 05/18/17 12:10 ([place] 7.5-325 Mg) 1 tab Q4H PRN PO 05/11/17 17:30 05/13/17 11:46 ([place] 7.5-325 Mg) 2 tab Q4H PRN PO 05/11/17 17:30 05/17/17 20:18 (KCl) 20 meq DAILY PO 05/17/17 09:00 05/18/17 08:49 (Lasix Inj) 20 mg DAILY IV PUSH 05/17/17 09:00 Future Hold (Lovenox Inj) 30 mg Q24H SQ 05/17/17 20:00 05/17/17 20:14 (Pepcid) 20 mg DAILY PO 05/18/17 09:00 05/18/17 08:49 Vital Signs / I&O Vital Signs Date Time Temp Pulse Resp B/P (MAP) Pulse Ox O2 Delivery O2 Flow Rate FiO2 05/18/17 12:00 97.0 82 18 152/73 (99) 97 05/18/17 08:00 97.2 81 18 136/67 (90) 96 05/18/17 04:00 97.1 71 18 137/75 (95) 94 05/18/17 00:54 75 05/18/17 00:00 97.2 67 18 123/72 (89) 95 05/17/17 20:14 79 05/17/17 20:00 98.4 71 20 125/71 (89) 95 05/17/17 17:30 87 05/17/17 16:00 97.9 82 17 142/65 (90) 95 I/O 05/17/17 05/17/17 05/17/17 05/18/17 05/18/17 05/18/17 07:00 15:00 23:00 07:00 15:00 23:00 Intake Total 480 ml 480 ml 120 ml Output Total 650 ml 800 ml 950 ml Balance -170 ml -320 ml -830 ml Intake Oral 480 ml 480 ml 120 ml Output Urine Total 650 ml 800 ml 950 ml # Bowel Movements 1 0 Physical Exam GENERAL: NAD, AAOx3 SKIN: Warm and dry. HEAD: Atraumatic. Normocephalic. EYES: Pupils equal and round. No scleral icterus. No injection or drainage. ENT: No nasal bleeding or discharge. Mucous membranes pink and moist. NECK: Trachea midline. No JVD. CARDIOVASCULAR: Regular rate and rhythm. RESPIRATORY: No accessory muscle use. Clear to auscultation. Breath sounds equal bilaterally. GASTROINTESTINAL: Abdomen soft, non-tender, nondistended. Hepatic and splenic margins not palpable. Dressing clean/dry MUSCULOSKELETAL: Extremities without clubbing, cyanosis, or edema. No obvious deformities. NEUROLOGICAL: Awake and alert. No obvious cranial nerve deficits. Motor grossly within normal limits. Five out of 5 muscle strength in the arms and legs. Normal speech. PSYCHIATRIC: Appropriate mood and affect; insight and judgment normal. Laboratory Laboratory Tests Test 05/18/17 04:50 Blood Urea Nitrogen 19 MG/DL Creatinine 1.24 MG/DL Random Glucose 89 MG/DL Calcium Level 8.3 MG/DL Sodium Level 136 MEQ/L Potassium Level 4.2 MEQ/L Chloride Level 103 MEQ/L Carbon Dioxide Level 26.1 MEQ/L Anion Gap 7 MEQ/L Estimat Glomerular Filtration Rate 55 ML/MIN Assessment and Plan Problem List: (1) Paroxysmal atrial fibrillation with rapid ventricular response ICD Codes: I48.0 - Paroxysmal atrial fibrillation (2) Perforated diverticulum of small intestine ICD Codes: K57.00 - Diverticulitis of small intestine with perforation and abscess without bleeding Status: Resolved (3) COPD with exacerbation ICD Codes: J44.1 - Chronic obstructive pulmonary disease with (acute) exacerbation Status: Acute (4) Peritonitis ICD Codes: K65.9 - Peritonitis, unspecified Assessment and Plan 1) Afib with RVR Converted to NSR with Amiodarone Cardizem PO Will avoid Beta Blockers for now, concern for bronchospasm 2) EF 60-65%, stage 1 diastolic dysfunction 3) CHADSVASc=3 Discussed extensively with him and his family his risk of stroke vs bleeding and that his risk of stroke is higher than his risk of bleeding He would like to continue on ASA 81mg daily for anti-coagulation, understands that this proves little protection 4) Scrotal/lower extremity edema Agree with Lasix BID Diuresed well, creatinine better on lower dose and continues to diurese Gregorio Uriostegui DO May 18, 2017 12:39
--- NOTE | 2017-05-18 14:39 | HHI.PR ---
Subjective Remarks doing well telemetry- sinus no complains of pain Objective Vitals Vital Signs Date Time Temp Pulse Resp B/P (MAP) Pulse Ox O2 Delivery O2 Flow Rate FiO2 05/18/17 12:00 97.0 82 18 152/73 (99) 97 05/18/17 08:00 97.2 81 18 136/67 (90) 96 05/18/17 04:00 97.1 71 18 137/75 (95) 94 05/18/17 00:54 75 05/18/17 00:00 97.2 67 18 123/72 (89) 95 05/17/17 20:14 79 05/17/17 20:00 98.4 71 20 125/71 (89) 95 05/17/17 17:30 87 05/17/17 16:00 97.9 82 17 142/65 (90) 95 I/O 05/17/17 05/17/17 05/17/17 05/18/17 05/18/17 05/18/17 07:00 15:00 23:00 07:00 15:00 23:00 Intake Total 480 ml 480 ml 120 ml Output Total 650 ml 800 ml 950 ml Balance -170 ml -320 ml -830 ml Intake Oral 480 ml 480 ml 120 ml Output Urine Total 650 ml 800 ml 950 ml # Bowel Movements 1 0 Result Diagram: 05/15/17 0737 05/18/17 0450 Imaging Last Impressions Abdomen X-Ray 05/10/17 0000 Signed Impressions: Service Date/Time: Wednesday, May 10, 2017 12:03 - CONCLUSION: 1. Status post abdominal surgery. 2. Nonspecific gas pattern without significant ileus. 3. Left hip prosthesis. Antoine Valdivia MD Chest X-Ray 05/06/17 1532 Signed Impressions: Service Date/Time: Saturday, May 06, 2017 04:51 - CONCLUSION: Mild patchy infiltrate left medial lung base. Right lung clear. Lines and tubes as above. Mikhail Garcia MD Abdomen/Pelvis CT 05/05/17 0917 Signed Impressions: Service Date/Time: Friday, May 05, 2017 12:15 - CONCLUSION: 1. Free intraperitoneal air likely from bowel perforation. Most likely location is at the splenic flexure where there is a 4 cm air-fluid level characteristic of an abscess. Differential diagnosis is localized diverticulitis or colitis. Tucker Rivera MD Objective Remarks awake and alert, oriented x 3, good sats at room air anicteric lungs- no rales regular rhythm abdomen- incision dry, abdelrahman in place decreased + scrotal edema- improved- some dry excoriations extremities- decreased edema right lower extremity- /bullae- with clear fluid- from edema- decreased ambulating gently with a walker Procedures 1. Status post expiratory laparotomy and small bowel resection. 2. Status post exploratory laparotomy and closure of wound dehiscence. A/P Problem List: (1) Sepsis ICD Code: A41.9 - Sepsis, unspecified organism (2) Respiratory failure ICD Code: J96.90 - Respiratory failure, unspecified, unspecified whether with hypoxia or hypercapnia Status: Resolved (3) Peritonitis ICD Code: K65.9 - Peritonitis, unspecified (4) ART (acute kidney injury) ICD Code: N17.9 - Acute kidney failure, unspecified (5) COPD with exacerbation ICD Code: J44.1 - Chronic obstructive pulmonary disease with (acute) exacerbation Status: Acute (6) Perforated diverticulum of small intestine ICD Code: K57.00 - Diverticulitis of small intestine with perforation and abscess without bleeding Status: Resolved (7) Paroxysmal atrial fibrillation with rapid ventricular response ICD Code: I48.0 - Paroxysmal atrial fibrillation (8) Wound dehiscence ICD Code: T81.30XA - Disruption of wound, unspecified, initial encounter Status: Resolved (9) Anasarca ICD Code: R60.1 - Generalized edema (10) Hypophosphatemia ICD Code: E83.39 - Other disorders of phosphorus metabolism Assessment and Plan 86 years old (1) Sepsis Plan: Present on admission. The patient with leukocytosis and increased heart rate more than 90. Likely secondary to peritonitis and aspiration pneumonia. Sepsis syndrome is clinically resolving with improved heart rate and downtrending leukocytosis. S/P zosyn course 05/16 (2) Respiratory failure- resolved Status: Resolved Plan: Due to likely aspiration pneumonia with mild patchy infiltrate on the left medial lung base on chest x-ray obtained on 05/06/17. Supplemental O2. Bronchodilator therapy. (3) Peritonitis Perforated diverticulum of small intestine, s/p repair ICD Code: K65.9 - Peritonitis, unspecified Plan: Abdomen pelvis CT showed free intraperitoneal air likely from bowel perforation. Surgery ff Patient status post surgery laparotomy with bowel resection and days later expiratory laparotomy with wound dehiscence closure. Continue pain control as per general surgery. Management as per general surgery. (4) ART (acute kidney injury)- creatinine trending up - now trending down ICD Code: N17.9 - Acute kidney failure, unspecified Plan: Creatinine on admission 1.39. Acute kidney injury likely due to prerenal azotemia from dehydration. worsening renal functions- patient getting voerdiuresed- ff urine ouptut reviewed UO- over 5 L 3/5 Creatinine improved restart Lasix at 20 mg po bid (5) COPD with exacerbation- in remission ICD Code: J44.1 - Chronic obstructive pulmonary disease with (acute) exacerbation Status: Acute Plan: Treated with bronchodilator therapy. As per medical records there is no evidence that the patient was administered steroids. (7) Paroxysmal atrial fibrillation with rapid ventricular response- currently in SR ICD Code: I48.0 - Paroxysmal atrial fibrillation continue on amiodarone po Heart rate back to normal sinus rhythm controlled on Cardizem p.o. paitnet refused OAC. continue on ASA Cardiology ff (8) Wound dehiscence ICD Code: T81.30XA - Disruption of wound, unspecified, initial encounter Status: Resolved (9) Anasarca- improving ICD Code: R60.1 - Generalized edema. U) - 4-5 L /day The patient also has gained several pounds patient also went from 85 kg to 92.6. Scrotal edema and +2 lower extremity edema with fluid blisters.- improved Lasix held with increading creatinine , strict I's and O's need to be measured and accurately recorded, check daily weights. check BMP in am- if no improved- will hold temporarily (10) Hypophosphatemia Hypokalemia- improved ICD Code: E83.39 - Other disorders of phosphorus metabolism Plan: Due to decreased oral intake. On Neutraphos - phosphorus levels slowly trending up Continue to monitor phosphorus levels. KCL 20 meq po daily FF BMP Lasix decrease to once daily - hold Scrotal superficial wounds/excoriations Superficial leg Blisters/Bullae from edema - wound care team nurse consult GI prophylaxis: On PPI. DVT prophylaxis: Lovenox d/w patient and and family DC plan- [facility]- [facility] vs [facility] Omayra Israel MD May 18, 2017 14:39
[2017-05-18] MEDS: ASPIRIN 81 MG CHEW TAB CHEW SCH (15:08)
--- NOTE | 2017-05-18 15:57 | HHI.PR ---
Subjective Subjective Notes Up to the chair Feeling good Agreeable to go to rehab tomorrow Objective Vitals/I&O Vital Signs Date Time Temp Pulse Resp B/P (MAP) Pulse Ox O2 Delivery O2 Flow Rate FiO2 05/18/17 12:00 97.0 82 18 152/73 (99) 97 Labs Laboratory Tests Test 05/18/17 04:50 Blood Urea Nitrogen 19 Creatinine 1.24 Random Glucose 89 Calcium Level 8.3 Sodium Level 136 Potassium Level 4.2 Chloride Level 103 Carbon Dioxide Level 26.1 Anion Gap 7 Estimat Glomerular Filtration Rate 55 Date/Time Source Procedure Growth Status 05/05/17 14:14 Fluid Other Gram Stain - Final Complete 05/05/17 14:14 Body Fluid Culture - Final Klebsiella Pneumoniae Multi-Drug Resistant Complete Radiology Last 48 hours Impressions Abdomen X-Ray 05/05/17 1017 Signed Impressions: Service Date/Time: Friday, May 05, 2017 10:47 - CONCLUSION: 1. Pneumoperitoneum on the right side. Prashanth Mcintyre MD Abdomen/Pelvis CT 05/05/17 0917 Signed Impressions: Service Date/Time: Friday, May 05, 2017 12:15 - CONCLUSION: 1. Free intraperitoneal air likely from bowel perforation. Most likely location is at the splenic flexure where there is a 4 cm air-fluid level characteristic of an abscess. Differential diagnosis is localized diverticulitis or colitis. Tucker Rivera MD Cardiovascular: Regular Lungs: Clear Abdomen: Other (retention sutures in place; no pain ) Extremities: Other Narrative Exam RIGHT ankle---large blister decreasing scrotal edema A/P Problem List: (1) Respiratory failure ICD Codes: J96.90 - Respiratory failure, unspecified, unspecified whether with hypoxia or hypercapnia Status: Resolved (2) Peritonitis ICD Codes: K65.9 - Peritonitis, unspecified (3) ART (acute kidney injury) ICD Codes: N17.9 - Acute kidney failure, unspecified (4) COPD with exacerbation ICD Codes: J44.1 - Chronic obstructive pulmonary disease with (acute) exacerbation Status: Acute (5) Perforated diverticulum of small intestine ICD Codes: K57.00 - Diverticulitis of small intestine with perforation and abscess without bleeding Status: Resolved (6) Paroxysmal atrial fibrillation with rapid ventricular response ICD Codes: I48.0 - Paroxysmal atrial fibrillation (7) Hypokalemia due to loss of potassium ICD Codes: E87.6 - Hypokalemia Assessment and Plan 86 year old male s/p exp lap, resection of jejunum; s/p placement of retention sutures due to wound dehiscence -Continue PO Cardizem -Regular diet -Abdominal binder -Monitor labs due to Lasix ---closely monitor K, BUN/Cr ---improved -Lovenox -OOB as tolerated ---PT -CM consult--- Strongly suggest patient go to Rehab ---patient agreeable now; planning for tomorrow Attending Note - Dr. Dang Tolerating diet Abdominal wound dry; retention sutures intact Scrotal edema much improved; however, Junior needs to stay in for now Will remove abdelrahman and likely remove Junior next week when he comes to office ( Monday) Discussed with patient, daughter and son in room The exam, history, and the medical decision-making described in the above note were completed with the assistance of the mid-level provider. I reviewed and agree with the findings presented. I attest that I had a [id number] encounter with the patient on the same day, and personally performed and documented my assessment and findings in the medical record. Alma Miller/First Bernardo HIDALGO May 18, 2017 15:57 Rogelio Dang MD May 18, 2017 18:07
[2017-05-18] MEDS: FUROSEMIDE 20 MG TAB PO SCH (17:10)
[2017-05-18] MEDS: ENOXAPARIN SODIUM 30 MG/0.3 ML SYRINGE SQ SCH (21:06)
[2017-05-19] VITALS: BP 164/74; PULSE 88; RESP 20; TEMP 97.9; O2SAT 93
[2017-05-19] MEDS: CHLORHEXIDINE GLUCONATE 2 % 1 PACK (2 CLOTHS) TOP SCH (02:24)
[2017-05-19 04:00] VITALS: BP 138/70; PULSE 83; RESP 20; TEMP 97.8; O2SAT 94
[2017-05-19] MEDS: DILTIAZEM HCL 30 MG TAB PO SCH ×2 (05:28→11:27)
[2017-05-19] MEDS: CHLORHEXIDINE 0.12% (ORAL KIT) 15 ML CUP MT SCH (06:51)
[2017-05-19 07:18] LABS: BICARBONATE 26.7 MEQ/L (21.0-32.0); CALCIUM 8.5 MG/DL (8.5-10.1); CREATININE 1.32 MG/DL (0.60-1.30)
[2017-05-19] MEDS: ASPIRIN 81 MG CHEW TAB CHEW SCH (07:42)
[2017-05-19] MEDS: POTASSIUM CHLORIDE 20 MEQ CONTROLLED RELEASE TAB PO SCH (07:43)
[2017-05-19] MEDS: FUROSEMIDE 20 MG TAB PO SCH (07:43)
[2017-05-19] MEDS: FAMOTIDINE 20 MG TAB PO SCH (07:45)
[2017-05-19 08:00] VITALS: BP 128/77; PULSE 82; RESP 17; TEMP 97.2; O2SAT 96
--- NOTE | 2017-05-19 11:08 | HHI.PR ---
Subjective Subjective Notes Up to chair; eating breakfast No pain Ready for rehab today Objective Vitals/I&O Vital Signs Date Time Temp Pulse Resp B/P (MAP) Pulse Ox O2 Delivery O2 Flow Rate FiO2 05/19/17 08:00 97.2 82 17 128/77 (94) 96 Labs Laboratory Tests Test 05/19/17 05:22 Blood Urea Nitrogen 18 Creatinine 1.32 Random Glucose 89 Calcium Level 8.5 Sodium Level 137 Potassium Level 4.2 Chloride Level 103 Carbon Dioxide Level 26.7 Anion Gap 7 Estimat Glomerular Filtration Rate 51 Date/Time Source Procedure Growth Status 05/05/17 14:14 Fluid Other Gram Stain - Final Complete 05/05/17 14:14 Body Fluid Culture - Final Klebsiella Pneumoniae Multi-Drug Resistant Complete Radiology Last 48 hours Impressions Abdomen X-Ray 05/05/17 1017 Signed Impressions: Service Date/Time: Friday, May 05, 2017 10:47 - CONCLUSION: 1. Pneumoperitoneum on the right side. Prashanth Mcintyre MD Abdomen/Pelvis CT 05/05/17 0917 Signed Impressions: Service Date/Time: Friday, May 05, 2017 12:15 - CONCLUSION: 1. Free intraperitoneal air likely from bowel perforation. Most likely location is at the splenic flexure where there is a 4 cm air-fluid level characteristic of an abscess. Differential diagnosis is localized diverticulitis or colitis. Tucker Rivera MD Cardiovascular: Regular Lungs: Clear Abdomen: Other (retention sutures in place ) Extremities: Other (see below ) Narrative Exam decreasing scrotal edema A/P Problem List: (1) Respiratory failure ICD Codes: J96.90 - Respiratory failure, unspecified, unspecified whether with hypoxia or hypercapnia Status: Resolved (2) Peritonitis ICD Codes: K65.9 - Peritonitis, unspecified (3) ART (acute kidney injury) ICD Codes: N17.9 - Acute kidney failure, unspecified (4) COPD with exacerbation ICD Codes: J44.1 - Chronic obstructive pulmonary disease with (acute) exacerbation Status: Acute (5) Perforated diverticulum of small intestine ICD Codes: K57.00 - Diverticulitis of small intestine with perforation and abscess without bleeding Status: Resolved (6) Paroxysmal atrial fibrillation with rapid ventricular response ICD Codes: I48.0 - Paroxysmal atrial fibrillation (7) Hypokalemia due to loss of potassium ICD Codes: E87.6 - Hypokalemia Assessment and Plan 86 year old male s/p exp lap, resection of jejunum; s/p placement of retention sutures due to wound dehiscence -Continue PO Cardizem -Regular diet -Abdominal binder -Lovenox -OOB as tolerated ---PT -CM consult--- patient going to rehab today -DC to rehab with Sandi ---will plan to DC in office Monday - clear for DC; Follow up May 23 Alma Miller/First Bernardo HIDALGO May 19, 2017 11:08
[2017-05-19 12:00] VITALS: BP 137/71; PULSE 98; RESP 17; TEMP 96.8; O2SAT 95
--- NOTE | 2017-05-19 13:25 | HHI.PR ---
Subjective Remarks doing great good po ann - with good urine output no pain complaints Objective Vitals Vital Signs Date Time Temp Pulse Resp B/P (MAP) Pulse Ox O2 Delivery O2 Flow Rate FiO2 05/19/17 12:00 96.8 98 17 137/71 (93) 95 05/19/17 08:00 97.2 82 17 128/77 (94) 96 05/19/17 04:00 97.8 83 20 138/70 (92) 94 05/19/17 00:00 97.9 88 20 164/74 (104) 93 05/18/17 23:45 87 05/18/17 20:00 111 05/18/17 20:00 97.4 89 20 153/76 (101) 94 05/18/17 16:00 97.4 91 18 145/75 (98) 94 I/O 05/18/17 05/18/17 05/18/17 05/19/17 05/19/17 05/19/17 07:00 15:00 23:00 07:00 15:00 23:00 Intake Total 120 ml 480 ml 360 ml Output Total 950 ml 900 ml 1600 ml Balance -830 ml -420 ml -1240 ml Intake Oral 120 ml 480 ml 360 ml Output Urine Total 950 ml 900 ml 1600 ml # Bowel Movements 0 2 1 Result Diagram: 05/15/17 0737 05/19/17 0522 Imaging Last Impressions Abdomen X-Ray 05/10/17 0000 Signed Impressions: Service Date/Time: Wednesday, May 10, 2017 12:03 - CONCLUSION: 1. Status post abdominal surgery. 2. Nonspecific gas pattern without significant ileus. 3. Left hip prosthesis. Antoine Valdivia MD Chest X-Ray 05/06/17 1532 Signed Impressions: Service Date/Time: Saturday, May 06, 2017 04:51 - CONCLUSION: Mild patchy infiltrate left medial lung base. Right lung clear. Lines and tubes as above. Mikhail Garcia MD Abdomen/Pelvis CT 05/05/17 0917 Signed Impressions: Service Date/Time: Friday, May 05, 2017 12:15 - CONCLUSION: 1. Free intraperitoneal air likely from bowel perforation. Most likely location is at the splenic flexure where there is a 4 cm air-fluid level characteristic of an abscess. Differential diagnosis is localized diverticulitis or colitis. Tucker Rivera MD Objective Remarks awake and alert, oriented x 3, good sats at room air anicteric lungs- no rales regular rhythm abdomen- incision dry, abdelrahman in place decreased + scrotal edema- - improving , ann in place extremities- edema resolved right lower extremity- - some bullae from edema- improved- no sings of infection ambulating gently with a walker Procedures 1. Status post expiratory laparotomy and small bowel resection. 2. Status post exploratory laparotomy and closure of wound dehiscence. Assessment to: Continue Ann insert reason: Measure Accurate Output A/P Problem List: (1) Sepsis ICD Code: A41.9 - Sepsis, unspecified organism (2) Respiratory failure ICD Code: J96.90 - Respiratory failure, unspecified, unspecified whether with hypoxia or hypercapnia Status: Resolved (3) Peritonitis ICD Code: K65.9 - Peritonitis, unspecified (4) ART (acute kidney injury) ICD Code: N17.9 - Acute kidney failure, unspecified (5) COPD with exacerbation ICD Code: J44.1 - Chronic obstructive pulmonary disease with (acute) exacerbation Status: Acute (6) Perforated diverticulum of small intestine ICD Code: K57.00 - Diverticulitis of small intestine with perforation and abscess without bleeding Status: Resolved (7) Paroxysmal atrial fibrillation with rapid ventricular response ICD Code: I48.0 - Paroxysmal atrial fibrillation (8) Wound dehiscence ICD Code: T81.30XA - Disruption of wound, unspecified, initial encounter Status: Resolved (9) Anasarca ICD Code: R60.1 - Generalized edema (10) Hypophosphatemia ICD Code: E83.39 - Other disorders of phosphorus metabolism Assessment and Plan 86 years old (1) Sepsis Plan: Present on admission. The patient with leukocytosis and increased heart rate more than 90. Likely secondary to peritonitis and aspiration pneumonia. Sepsis syndrome is clinically resolving with improved heart rate and downtrending leukocytosis. S/P zosyn course 05/16 (2) Respiratory failure- resolved Status: Resolved Plan: Due to likely aspiration pneumonia with mild patchy infiltrate on the left medial lung base on chest x-ray obtained on 05/06/17. Supplemental O2. Bronchodilator therapy. (3) Peritonitis Perforated diverticulum of small intestine, s/p repair ICD Code: K65.9 - Peritonitis, unspecified Plan: Abdomen pelvis CT showed free intraperitoneal air likely from bowel perforation. Surgery ff Patient status post surgery laparotomy with bowel resection and days later expiratory laparotomy with wound dehiscence closure. Continue pain control as per general surgery. Management as per general surgery. (4) ART (acute kidney injury)- creatinine trending up - now trending down ICD Code: N17.9 - Acute kidney failure, unspecified Plan: Creatinine on admission 1.39. Acute kidney injury likely due to prerenal azotemia from dehydration. worsening renal functions- patient getting voerdiuresed- ff urine ouptut reviewed UO- over 5 L 05/15 conrinue Lasix with close monitoring of creatinine- decrease to once daily 20 mg Keep ann catheter until seen by GS on ff up - monday- per GS orders (5) COPD with exacerbation- in remission ICD Code: J44.1 - Chronic obstructive pulmonary disease with (acute) exacerbation Status: Acute Plan: Treated with bronchodilator therapy. As per medical records there is no evidence that the patient was administered steroids. (7) Paroxysmal atrial fibrillation with rapid ventricular response- currently in SR ICD Code: I48.0 - Paroxysmal atrial fibrillation continue on amiodarone po Heart rate back to normal sinus rhythm controlled on Cardizem p.o. paitnet refused OAC. continue on ASA Cardiology ff (8) Wound dehiscence ICD Code: T81.30XA - Disruption of wound, unspecified, initial encounter Status: Resolved (9) Anasarca- improving ICD Code: R60.1 - Generalized edema. U) - 4-5 L /day The patient also has gained several pounds patient also went from 85 kg to 92.6. Scrotal edema and +2 lower extremity edema with fluid blisters.- improved Lasix- restart , strict I's and O's need to be measured and accurately recorded, check daily weights. ff BMP (10) Hypophosphatemia Hypokalemia- improved ICD Code: E83.39 - Other disorders of phosphorus metabolism Plan: Due to decreased oral intake. On Neutraphos - phosphorus levels slowly trending up Continue to monitor phosphorus levels. KCL 20 meq po daily FF BMP Scrotal superficial wounds/excoriations- improving Superficial leg Blisters/Bullae from edema- improving - wound care team - GI prophylaxis: On PPI. DVT prophylaxis: Lovenox d/w patient and and family DC plan- SNF- [facility] today Omayra Erazo MD May 19, 2017 13:25
[2017-05-19] MEDS ORDERED: DILT31TA PO (13:36)
[2017-05-19] MEDS ORDERED: FURO20TA PO (13:36)
[2017-05-19] MEDS ORDERED: FAMO20TA2 PO (13:36)
[2017-05-19] MEDS ORDERED: ASPI81 CHEW (13:36)
[2017-05-19] MEDS ORDERED: POTA20TA5 PO (13:36)
[2017-05-19] MEDS ORDERED: HYDR-3580 PO (13:38)
--- NOTE | 2017-05-19 13:42 | HHI.DS ---
Discharge Summary Admission Date May 05, 2017 at 13:38 Discharge Date: May 19, 2017 Admitting Diagnosis perforated viscous (1) Sepsis ICD Code: A41.9 - Sepsis, unspecified organism Diagnosis: Principal (2) Respiratory failure ICD Code: J96.90 - Respiratory failure, unspecified, unspecified whether with hypoxia or hypercapnia Diagnosis: Principal Status: Resolved (3) Peritonitis ICD Code: K65.9 - Peritonitis, unspecified Diagnosis: Principal (4) ART (acute kidney injury) ICD Code: N17.9 - Acute kidney failure, unspecified Diagnosis: Secondary (5) COPD with exacerbation ICD Code: J44.1 - Chronic obstructive pulmonary disease with (acute) exacerbation Diagnosis: Secondary Status: Acute (6) Perforated diverticulum of small intestine ICD Code: K57.00 - Diverticulitis of small intestine with perforation and abscess without bleeding Diagnosis: Principal Status: Resolved (7) Paroxysmal atrial fibrillation with rapid ventricular response ICD Code: I48.0 - Paroxysmal atrial fibrillation Diagnosis: Principal (8) Wound dehiscence ICD Code: T81.30XA - Disruption of wound, unspecified, initial encounter Diagnosis: Principal Status: Resolved (9) Anasarca ICD Code: R60.1 - Generalized edema Diagnosis: Principal (10) Hypophosphatemia ICD Code: E83.39 - Other disorders of phosphorus metabolism Diagnosis: Secondary Procedures 1. Status post expiratory laparotomy and small bowel resection. 2. Status post exploratory laparotomy and closure of wound dehiscence. Brief History - From Admission 86 y/o man s/p repair of proximal small bowel perforated diverticulum. On mechanical ventilation. CBC/BMP: 05/15/17 0737 05/19/17 0522 Significant Findings Laboratory Tests Test 05/17/17 07:05 05/18/17 04:50 05/19/17 05:22 Blood Urea Nitrogen 22 MG/DL (-) 19 MG/DL (-) Creatinine 1.35 MG/DL (0.60-1.30) 1.32 MG/DL (0.60-1.30) Calcium Level 8.2 MG/DL (8.5-10.1) 8.3 MG/DL (8.5-10.1) Estimat Glomerular Filtration Rate 50 ML/MIN (>89) 55 ML/MIN (>89) 51 ML/MIN (>89) Imaging Last Impressions Abdomen X-Ray 05/10/17 0000 Signed Impressions: Service Date/Time: Wednesday, May 10, 2017 12:03 - CONCLUSION: 1. Status post abdominal surgery. 2. Nonspecific gas pattern without significant ileus. 3. Left hip prosthesis. Antoine Valdivia MD Chest X-Ray 05/06/17 1532 Signed Impressions: Service Date/Time: Saturday, May 06, 2017 04:51 - CONCLUSION: Mild patchy infiltrate left medial lung base. Right lung clear. Lines and tubes as above. Mikhail Garcia MD Abdomen/Pelvis CT 05/05/17 0917 Signed Impressions: Service Date/Time: Friday, May 05, 2017 12:15 - CONCLUSION: 1. Free intraperitoneal air likely from bowel perforation. Most likely location is at the splenic flexure where there is a 4 cm air-fluid level characteristic of an abscess. Differential diagnosis is localized diverticulitis or colitis. Tucker Rivera MD PE at Discharge awake and alert, oriented x 3, good sats at room air anicteric lungs- no rales regular rhythm abdomen- incision dry, abdelrahman in place decreased + scrotal edema- - improving , ann in place extremities- edema resolved right lower extremity- - some bullae from edema- improved- no sings of infection ambulating gently with a walker Pt update on day of discharge afevrile awake and alert, no distress tolerating po non oliguric scrotal swelling improving- keep ann till seen by GS ff up OP Hospital Course 86 years old (1) Sepsis Plan: Present on admission. The patient with leukocytosis and increased heart rate more than 90. Likely secondary to peritonitis and aspiration pneumonia. Sepsis syndrome is clinically resolving with improved heart rate and downtrending leukocytosis. S/P zosyn course 05/16 (2) Respiratory failure- resolved Status: Resolved Plan: Due to likely aspiration pneumonia with mild patchy infiltrate on the left medial lung base on chest x-ray obtained on 05/06/17. Supplemental O2. Bronchodilator therapy. (3) Peritonitis Perforated diverticulum of small intestine, s/p repair ICD Code: K65.9 - Peritonitis, unspecified Plan: Abdomen pelvis CT showed free intraperitoneal air likely from bowel perforation. Surgery ff Patient status post surgery laparotomy with bowel resection and days later expiratory laparotomy with wound dehiscence closure. Continue pain control as per general surgery. Management as per general surgery. (4) ART (acute kidney injury)- creatinine trending up - now trending down ICD Code: N17.9 - Acute kidney failure, unspecified Plan: Creatinine on admission 1.39. Acute kidney injury likely due to prerenal azotemia from dehydration. worsening renal functions- patient getting voerdiuresed- ff urine ouptut reviewed UO- over 5 L 05/15 conrinue Lasix with close monitoring of creatinine- decrease to once daily 20 mg Keep ann catheter until seen by GS on ff up - monday- per GS orders (5) COPD with exacerbation- in remission ICD Code: J44.1 - Chronic obstructive pulmonary disease with (acute) exacerbation Status: Acute Plan: Treated with bronchodilator therapy. As per medical records there is no evidence that the patient was administered steroids. (7) Paroxysmal atrial fibrillation with rapid ventricular response- currently in SR ICD Code: I48.0 - Paroxysmal atrial fibrillation continue on amiodarone po Heart rate back to normal sinus rhythm controlled on Cardizem p.o. paitnet refused OAC. continue on ASA Cardiology ff (8) Wound dehiscence ICD Code: T81.30XA - Disruption of wound, unspecified, initial encounter Status: Resolved (9) Anasarca- improving ICD Code: R60.1 - Generalized edema. U) - 4-5 L /day The patient also has gained several pounds patient also went from 85 kg to 92.6. Scrotal edema and +2 lower extremity edema with fluid blisters.- improved Lasix- restart , strict I's and O's need to be measured and accurately recorded, check daily weights. ff BMP (10) Hypophosphatemia Hypokalemia- improved ICD Code: E83.39 - Other disorders of phosphorus metabolism Plan: Due to decreased oral intake. On Neutraphos - phosphorus levels slowly trending up Continue to monitor phosphorus levels. KCL 20 meq po daily FF BMP Scrotal superficial wounds/excoriations- improving Superficial leg Blisters/Bullae from edema- improving - wound care team - GI prophylaxis: On PPI. DVT prophylaxis: Lovenox d/w patient and and family DC plan- SNF- [facility] today Pt Condition on Discharge: Stable Discharge Disposition: Discharge to SNF Discharge Time: > 30 minutes Discharge Instructions DIET: Follow Instructions for: As Tolerated, No Restrictions, Heart Healthy Diet Activities you can perform: Weight Bearing as Enriqueta Activities to Avoid: Prolonged Standing, Strenuous Activity Other Activity Instructions: monitor I and O monitor abdominal incision monito scrotal swelling Calaxyme lotion to scrotal ex oriations leg bullae- apply NS please see my a/p DC summary Follow up Referrals: Cardiology - 2 Weeks with [facility] - 05/23/17 with Rogelio Dang MD Appt set for May 23 at 1:40PM New Orders: BASIC METABOLIC PROF - 05/22/17 New Medications: Aspirin (Tgt Aspirin) 81 Mg Chw 81 MG CHEW DAILY for arrytmia for 30 Days, EA Diltiazem (Cardizem) 30 Mg Tab 30 MG PO Q6HR for par. a fib for 30 Days, TAB Famotidine (Famotidine) 20 Mg Tab 20 MG PO DAILY for GIpro for 30 Days, #30 TAB Furosemide (Furosemide) 20 Mg Tab 20 MG PO DAILY for edema for 30 Days, #30 TAB Hydrocodone/Acetaminophen (Hydrocodone-Acetamin 7.5-325) 7.5 Mg-325 Mg Tablet 1 TAB PO Q8 PRN for PAIN SCALE 5 TO 10, #20 TAB 0 Refills Potassium Chloride Microencaps (Potassium Chloride Microencaps) 20 Meq Tab 20 MEQ PO DAILY for elec for 30 Days, #30 TAB Continued Medications: Albuterol 18 GM Inh (Ventolin Hfa 18 GM Inh) 90 Mcg/Act Aer 1 PUFF INH Q4H PRN for SHORTNESS OF BREATH, #1 INHALER 0 Refills Omayra Erazo MD May 19, 2017 13:42
[2017-05-19] MEDS ORDERED: ENOX30P SQ (13:43)
--- NOTE | 2017-05-19 22:42 | PD.CARD.PN ---
Subjective Subjective Remarks Patient was seen earlier this afternoon, late entry note Doing well, up to the chair Scrotal/lower extremity edema better per the patient Telemetry showing NSR Objective Vital Signs / I&O Vital Signs Date Time Temp Pulse Resp B/P (MAP) Pulse Ox O2 Delivery O2 Flow Rate FiO2 05/19/17 12:00 96.8 98 17 137/71 (93) 95 05/19/17 08:00 97.2 82 17 128/77 (94) 96 05/19/17 04:00 97.8 83 20 138/70 (92) 94 05/19/17 00:00 97.9 88 20 164/74 (104) 93 05/18/17 23:45 87 I/O 05/18/17 05/18/17 05/18/17 05/19/17 05/19/17 05/19/17 07:00 15:00 23:00 07:00 15:00 23:00 Intake Total 120 ml 480 ml 360 ml Output Total 950 ml 900 ml 1600 ml Balance -830 ml -420 ml -1240 ml Intake Oral 120 ml 480 ml 360 ml Output Urine Total 950 ml 900 ml 1600 ml # Bowel Movements 0 2 1 Physical Exam GENERAL: NAD, AAOx3 SKIN: Warm and dry. HEAD: Atraumatic. Normocephalic. EYES: Pupils equal and round. No scleral icterus. No injection or drainage. ENT: No nasal bleeding or discharge. Mucous membranes pink and moist. NECK: Trachea midline. No JVD. CARDIOVASCULAR: Regular rate and rhythm. RESPIRATORY: No accessory muscle use. Clear to auscultation. Breath sounds equal bilaterally. GASTROINTESTINAL: Abdomen soft, non-tender, nondistended. Hepatic and splenic margins not palpable. Dressing clean/dry MUSCULOSKELETAL: Extremities without clubbing, cyanosis, or edema. No obvious deformities. NEUROLOGICAL: Awake and alert. No obvious cranial nerve deficits. Motor grossly within normal limits. Five out of 5 muscle strength in the arms and legs. Normal speech. PSYCHIATRIC: Appropriate mood and affect; insight and judgment normal. Laboratory Laboratory Tests Test 05/19/17 05:22 Blood Urea Nitrogen 18 MG/DL Creatinine 1.32 MG/DL Random Glucose 89 MG/DL Calcium Level 8.5 MG/DL Sodium Level 137 MEQ/L Potassium Level 4.2 MEQ/L Chloride Level 103 MEQ/L Carbon Dioxide Level 26.7 MEQ/L Anion Gap 7 MEQ/L Estimat Glomerular Filtration Rate 51 ML/MIN Assessment and Plan Problem List: (1) Paroxysmal atrial fibrillation with rapid ventricular response ICD Codes: I48.0 - Paroxysmal atrial fibrillation (2) Perforated diverticulum of small intestine ICD Codes: K57.00 - Diverticulitis of small intestine with perforation and abscess without bleeding Status: Resolved (3) COPD with exacerbation ICD Codes: J44.1 - Chronic obstructive pulmonary disease with (acute) exacerbation Status: Acute (4) Peritonitis ICD Codes: K65.9 - Peritonitis, unspecified Assessment and Plan 1) Afib with RVR Converted to NSR with Amiodarone Cardizem PO Will avoid Beta Blockers for now, concern for bronchospasm 2) EF 60-65%, stage 1 diastolic dysfunction 3) CHADSVASc=3 Discussed extensively with him and his family his risk of stroke vs bleeding and that his risk of stroke is higher than his risk of bleeding He would like to continue on ASA 81mg daily for anti-coagulation, understands that this proves little protection 4) Scrotal/lower extremity edema Agree with Lasix BID Diuresed well, creatinine better on lower dose and continues to diurese 5) To SNF, continue diuresis Gregorio Uriostegui DO May 19, 2017 22:42
[2017-05-20] MEDS ORDERED: FUROSEMIDE 20 MG TAB PO SCH (09:00)
== END 2017-05-19 16:54 | DRG 853 ==
LOC: NEPE 08:45 → NEDA 13:38 → N03B 17:15 → N07B 05-13 14:42
PROVIDERS: ADMIT Internal Medicine; ATTEND Internal Medicine
PROC: 0DBA0ZZ Excision of Jejunum, Open Approach (ICD-10-PCS; principal; 2017-05-05 13:51)
PROC: 5A2204Z Restoration of Cardiac Rhythm, Single (ICD-10-PCS; 2017-05-08)
PROC: 0WQF0ZZ Repair Abdominal Wall, Open Approach (ICD-10-PCS; 2017-05-10)
DX: A41.9 Sepsis, unspecified organism (principal); J96.90 Respiratory failure, unspecified, unspecified whether with hypoxia or hypercapnia; J69.0 Pneumonitis due to inhalation of food and vomit; N17.9 Acute kidney failure, unspecified; I95.9 Hypotension, unspecified; K57.00 Diverticulitis of small intestine with perforation and abscess without bleeding; J44.1 Chronic obstructive pulmonary disease with (acute) exacerbation; I47.1 Supraventricular tachycardia; I48.0 Paroxysmal atrial fibrillation; T81.32XA Disruption of internal operation (surgical) wound, not elsewhere classified, initial encounter; E86.0 Dehydration; E83.39 Other disorders of phosphorus metabolism; I10 Essential (primary) hypertension; E78.5 Hyperlipidemia, unspecified; M19.90 Unspecified osteoarthritis, unspecified site; Z96.642 Presence of left artificial hip joint; E78.00 Pure hypercholesterolemia, unspecified; J98.01 Acute bronchospasm; Y83.6 Removal of other organ (partial) (total) as the cause of abnormal reaction of the patient, or of later complication, without mention of misadventure at the time of the procedure; R60.1 Generalized edema; N50.89 Other specified disorders of the male genital organs; E87.6 Hypokalemia; S80.822A Blister (nonthermal), left lower leg, initial encounter; S80.821A Blister (nonthermal), right lower leg, initial encounter
CPT/HCPCS: 31500; 71045; 74018; 74177; 80048; 80053; 81001; 82805; 83605; 83690; 83735; 84100; 84155; 85007; 85025; 85027; 86850; 86900; 86901; 87070; 87077; 87186; 87205; 87641; 88305; 88307; 93005; 93306; 94002; 94003; 94150; 94640; 94664; 94667; 94668; 96361; 96365; 96375; C9113; J0131; J0282; J0330; J1100; J1170; J1200; J1650; J1940; J2250; J2270; J2370; J2405; J2543; J3010; J3475; J3480; J7030; J7040; J7060; J7120; J7611; J7613; P9045; Q9963; Q9967